=== PATIENT | male | born 1950 | race Caucasian/White ===

== ENCOUNTER 2021-06-24 13:45 | Observation (INO) | payer OTHER ==
--- NOTE | 2021-06-24 14:45 | ED ---
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 Patient went to a follow-up today with Dr. Whittaker after having a thoracentesis done about 2 weeks ago and this was found on examination. I did discuss the case with Dr. Whittaker who did send the patient over here for evaluation and inpatient treatment. The initial evaluation of the fluid from 2 weeks ago did not show evidence of neoplasm to one is suspected. MD Complaint: shortness of breath - Related Data Previous Rx's Medication Instructions Recorded Acetaminophen Tab [Tylenol] 650 mg PO Q6HR PRN tab 06/10/21 Cefuroxime Axetil [Ceftin] 500 mg PO BID 5 Days #10 tab 06/10/21 Famotidine [Pepcid] 20 mg PO BID 30 Days #60 tab 06/10/21 lisinopriL [Zestril] 10 mg PO DAILY #30 tab 06/10/21 Allergies Allergy/AdvReac Type Severity Reaction Status Date / Time No Known Allergies Allergy Verified 06/24/21 14:01 Review of Systems ROS Statement: Those systems with pertinent positive or pertinent negative responses have been documented in the HPI. ROS Other: All systems not noted in ROS Statement are negative. 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 Father Family Medical History: No Reported History Additional Family Medical History / Comment(s): Father is 89yrs old. General Exam - General Exam Comments Initial Comments: This is a well-developed well-nourished awake alert oriented times 3 male Limitations: no limitations General appearance: alert, in no apparent distress Head exam: Present: atraumatic, normocephalic, normal inspection Eye exam: Present: normal appearance, PERRL, EOMI. Absent: scleral icterus, conjunctival injection, periorbital swelling ENT exam: Present: normal exam, mucous membranes moist Neck exam: Present: normal inspection, full ROM, other. Absent: tenderness, meningismus, lymphadenopathy Respiratory exam: Present: decreased breath sounds, other (No surgery or bruits dullness to percussion over left lung field decreased evidence of aeration.). Absent: respiratory distress, wheezes, rales, rhonchi, stridor Cardiovascular Exam: Present: normal rhythm, tachycardia, normal heart sounds. Absent: systolic murmur, diastolic murmur, rubs, gallop, clicks GI/Abdominal exam: Present: soft, normal bowel sounds. Absent: distended, tenderness, guarding, rebound, rigid Extremities exam: Present: normal inspection, full ROM, normal capillary refill. Absent: tenderness, pedal edema, joint swelling, calf tenderness Back exam: Present: normal inspection Neurological exam: Present: alert, oriented X3, CN II-XII intact Psychiatric exam: Present: normal affect, normal mood Skin exam: Present: warm, dry, intact, normal color. Absent: rash Course Vital Signs 06/24/21 13:58 Temperature 98.2 F Pulse Rate 120 H Respiratory 20 Rate Blood Pressure 133/77 O2 Sat by Pulse 96 Oximetry Medical Decision Making - Medical Decision Making I did review the imaging the patient does have evidence of a large left pleural effusion with some evidence of shift to the right I did discuss the case with Dr. Lawrence patient will be admitted to due to the call schedule today. Dr. Avila will be consulted as well is thoracic surgery. - EKG Data -: EKG Interpreted by Me EKG shows normal: sinus rhythm EKG Comments: Sinus tachycardia rate 125. Interval 120 QRS duration 8070 QT since QTC 290/[address]-T wave configuration Disposition Clinical Impression: Recurrent left pleural effusion, Dyspnea, Tachycardia Disposition: ADMITTED IP TO THIS [facility] Condition: Fair Referrals: None,Stated [Primary Care Provider] - 1-2 days
[2021-06-24 14:54] LABS: Basophils % (A) 0 %; Eosinophils # (A) 0.1 k/uL (0-0.7); Eosinophils % (A) 1 %; HCT 40.1 % (39.0-53.0); HGB 12.7 gm/dL (13.0-17.5); Hypochromasia Slight; Lymphocytes % (A) 6 %; MCH 27.6 pg (25.0-35.0); MCHC 31.6 g/dL (31.0-37.0); MCV 87.2 fL (80.0-100.0); Mean Platelet Volume 6.6; Monocytes # (A) 0.9 k/uL (0-1.0); Monocytes % (A) 6 %; Neutrophils # (A) 13.3 k/uL (1.3-7.7); Neutrophils % (A) 86 %; Platelet Count 522 k/uL (150-450); RDW 13.7 % (11.5-15.5); WBC 15.5 k/uL (3.8-10.6)
[2021-06-24] MEDS ORDERED: ACETAMINOPHEN TAB 325 MG TAB PO PRN (14:55)
[2021-06-24] MEDS ORDERED: NALOXONE 0.4 MG/ML 1 ML VIAL IV PRN (14:55)
[2021-06-24] MEDS ORDERED: SODIUM CHLORIDE 0.9% 1,000 ML IV SCH (15:00)
[2021-06-24 15:02] LABS: INR 1.1 (<1.2); Partial Thromboplastin Time 23.4 sec (22.0-30.0); Prothrombin Time 11.7 sec (9.0-12.0)
[2021-06-24 15:10] LABS: Albumin 3.4 g/dL (3.5-5.0); Calcium 8.7 mg/dL (8.4-10.2); Potassium 4.6 mmol/L (3.5-5.1); Total Bilirubin 0.9 mg/dL (0.2-1.3); Total Protein 7.3 g/dL (6.3-8.2)
--- NOTE | 2021-06-24 15:49 | US ---
EXAMINATION TYPE: US chest DATE OF EXAM: 06/24/2021 COMPARISON: Outside chest x-ray earlier today CLINICAL HISTORY: Marking for thoracentesis, left side. TECHNIQUE: Targeted ultrasound of the posterior lower EXAM MEASUREMENTS: Left Pleural Effusion pocket size: 13.3 cm Left skin surface to fluid distance: 5.4 cm Lung sitting at 9.2cm. Left side marked for possible thoracentesis outside the dept. Pulmonologists are able to review the images in the patient?s EMR. At least moderate size left pleural fluid collection noted on 2 images saved correlating with x-ray e janice today. IMPRESSIONS: As above.
--- NOTE | 2021-06-24 17:27 | P.CNPUL ---
History of Present Illness Consult date: 06/24/21 Reason for consult: pleural effusion History of present illness: 70-year-old male patient who was seen in the office and the patient has comple mirela widening out of the left lung and the left lung was completely opacified highly suspicious for pleural effusion with a shift of the mediastinum to the right. Noted the patient was in the hospital on 06/10/2021 for the same. At that time, the patient a moderate-sized left-sided pleural effusion and the patient had also some partial atelectatic changes in the left lower lobe. Based on that, the patient underwent a thoracentesis, total of 1.2 L of fluid was removed and the fluid machine turner to be an exudate based on elevated protein level. LDH was 278, protein was 4.8 and the fluids. The cytology was negative, the cultures were negative, the patient was discharged home after being treated with antibiotics and he was given IV Rocephin. He came back with the above-mentioned complaint. At this point he is short of breath, tachycardic, he is afebrile, he is in sinus tachycardia with heart rate ranging between 114 and 120 with a pulse ox of 90% 4 L O2 nasal cannula. Pulmonary consultation was requested accordingly. The patient's white cell count of 15.5 with a hemoglobin of 12.2, electrolytes are normal, renal function is normal, his previous cultures 19 testing was negative on 06/08/2021, the CAT scan of the chest that was done on 06/08/2021 showed no evidence of any pulmonary embolism, large left-sided pleural effusion as mentioned, multiple areas of abnormal lobulated pleural- based thickening involving the left lung was in addition to scattered nodularity measuring up to 1.4 cm in size within the lingula which obviously raises concern for malignancy. Not a 5 mm right middle lobe pulmonary nodule was also seen. Review of Systems Constitutional: Reports fatigue Eyes: denies as per HPI, denies blurred vision, denies bulging eye, denies decreased vision, denies diplopia, denies discharge, denies dry eye, denies irritation, denies itching, denies pain, denies photophobia, denies loss of peripheral vision, denies loss of vision, denies tunnel vision/blind spots Ears: deny: decreased hearing, ear discharge, earache, tinnitus Ears, nose, mouth and throat: Reports as per HPI Breasts: absent: as per HPI, gynecomastia Cardiovascular: Reports decreased exercise tolerance, Reports dyspnea on exertio n Respiratory: Reports dyspnea Gastrointestinal: Reports as per HPI Genitourinary: Reports as per HPI Musculoskeletal: Reports as per HPI Musculoskeletal: absent: ankle pain, ankle stiffness, ankle swelling, as per HPI, elbow pain, elbow stiffness, elbow swelling, foot pain, foot stiffness, foot swelling, hand pain, hand stiffness, hand swelling, hip pain, hip stiffness, hip swelling, knee pain, knee stiffness, knee swelling, shoulder pain, shoulder stiffness, shoulder swelling, wrist pain, wrist stiffness, wrist swelling Integumentary: Reports as per HPI Neurological: Reports as per HPI Psychiatric: Reports as per HPI Endocrine: Reports as per HPI Hematologic/Lymphatic: Reports as per HPI Allergic/Immunologic: Reports as per HPI Past Medical History Past Medical History: No Reported History, COPD 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 Father Family Medical History: No Reported History Additional Family Medical History / Comment(s): Father is 89yrs old. Brother(s) Family Medical History: Hypertension Additional Family Medical History / Comment(s): epilepsy Medications and Allergies Home Medications Medication Instructions Recorded Confirmed Type lisinopriL [Zestril] 10 mg PO DAILY #30 tab 06/10/21 06/24/21 Rx Allergies Allergy/AdvReac Type Severity Reaction Status Date / Time No Known Allergies Allergy Verified 06/24/21 14:01 Physical Exam Vitals: Vital Signs Temp Pulse Resp BP Pulse Ox 06/24/21 16:10 114 H 22 128/90 98 06/24/21 13:58 98.2 F 120 H 20 133/77 96 Intake and Output 06/24/21 06/24/21 06/24/21 06:59 14:59 22:59 Other: Weight 108.862 kg GENERAL EXAM: Alert, pleasant 70-year-old male patient, on room air, comfortable in no apparent distress. The patient is still on oxygen at 4 L nasal cannula, breathing is labored HEAD: Normocephalic. EYES: Normal reaction of pupils, equal size. NOSE: Clear with pink turbinates. THROAT: No erythema or exudates. NECK: No masses, no JVD. CHEST: No chest wall deformity. LUNGS: absent breath sounds on left CVS: S1 and S2 normal with no audible murmur, regular rhythm. ABDOMEN: No hepatosplenomegaly, normal bowel sounds, no guarding or rigidity. SPINE: No scoliosis or deformity SKIN: No rashes CENTRAL NERVOUS SYSTEM: No focal deficits, tone is normal in all 4 extremities. EXTREMITIES: There is no peripheral edema. No clubbing, no cyanosis. Peripheral pulses are intact. Results - Laboratory Findings CBC and BMP: 06/24/21 14:39 06/24/21 14:39 ABG WBC 15.5 k/uL (3.8-10.6) H 06/24/21 14:39 RBC 4.60 m/uL (4.30-5.90) 06/24/21 14:39 Hgb 12.7 gm/dL (13.0-17.5) L 06/24/21 14:39 Hct 40.1 % (39.0-53.0) 06/24/21 14:39 MCV 87.2 fL (80.0-100.0) 06/24/21 14:39 MCH 27.6 pg (25.0-35.0) 06/24/21 14:39 MCHC 31.6 g/dL (31.0-37.0) 06/24/21 14:39 RDW 13.7 % (11.5-15.5) 06/24/21 14:39 Plt Count 522 k/uL (150-450) H 06/24/21 14:39 MPV 6.6 06/24/21 14:39 Neutrophils % 86 % 06/24/21 14:39 Lymphocytes % 6 % 06/24/21 14:39 Monocytes % 6 % 06/24/21 14:39 Eosinophils % 1 % 06/24/21 14:39 Basophils % 0 % 06/24/21 14:39 Neutrophils # 13.3 k/uL (1.3-7.7) H 06/24/21 14:39 Lymphocytes # 1.0 k/uL (1.0-4.8) 06/24/21 14:39 Monocytes # 0.9 k/uL (0-1.0) 06/24/21 14:39 Eosinophils # 0.1 k/uL (0-0.7) 06/24/21 14:39 Basophils # 0.0 k/uL (0-0.2) 06/24/21 14:39 Hypochromasia Slight 06/24/21 14:39 PT 11.7 sec (9.0-12.0) 06/24/21 14:39 INR 1.1 (<1.2) 06/24/21 14:39 APTT 23.4 sec (22.0-30.0) 06/24/21 14:39 Sodium 139 mmol/L (137-145) 06/24/21 14:39 Potassium 4.6 mmol/L (3.5-5.1) 06/24/21 14:39 Chloride 102 mmol/L (98-107) 06/24/21 14:39 Carbon Dioxide 26 mmol/L (22-30) 06/24/21 14:39 Anion Gap 11 mmol/L 06/24/21 14:39 BUN 21 mg/dL (9-20) H 06/24/21 14:39 Creatinine 1.04 mg/dL (0.66-1.25) 06/24/21 14:39 Est GFR (CKD-EPI)AfAm 85 (>60 ml/min/1.73 sqM) 06/24/21 14:39 Est GFR (CKD-EPI)NonAf 74 (>60 ml/min/1.73 sqM) 06/24/21 14:39 Glucose 146 mg/dL (74-99) H 06/24/21 14:39 Calcium 8.7 mg/dL (8.4-10.2) 06/24/21 14:39 Total Bilirubin 0.9 mg/dL (0.2-1.3) 06/24/21 14:39 AST 93 U/L (17-59) H 06/24/21 14:39 ALT 149 U/L (4-49) H 06/24/21 14:39 Alkaline Phosphatase 98 U/L (38-126) 06/24/21 14:39 Creatine Kinase 183 U/L (55-170) H 06/24/21 14:39 Total Protein 7.3 g/dL (6.3-8.2) 06/24/21 14:39 Albumin 3.4 g/dL (3.5-5.0) L 06/24/21 14:39 PT/INR, D-dimer PT 11.7 sec (9.0-12.0) 06/24/21 14:39 INR 1.1 (<1.2) 06/24/21 14:39 Abnormal lab findings: Abnormal Labs 06/24/21 06/24/21 14:39 14:39 WBC 15.5 H Hgb 12.7 L Plt Count 522 H Neutrophils # 13.3 H BUN 21 H Glucose 146 H AST 93 H ALT 149 H Creatine Kinase 183 H Albumin 3.4 L - Diagnostic Findings Chest x-ray: image reviewed Assessment and Plan Plan: 1 completed widening out of the left lung most likely secondary to a large left- sided pleural effusion, recurrent. 2 previous history of left-sided pleural effusion postthoracentesis and evacuation of 1.2 L of pleural fluid, the fluids and exudate and fluid cytology has been negative for malignancy. 3 shortness of breath secondary to above 4 morbid obesity 5 acute hypoxic respiratory failure secondary to above 6 hypertension 7 nonspecific pleural based irregularities based on a previous CAT scan of the chest with another right middle lobe pulmonary nodule measuring 5 mm in size Plan We will repeat thoracentesis for diagnostic and symptomatic purposes I'm going to realize the left-sided pleural fluid We'll need a CAT scan of the chest postthoracentesis Obtain an echocardiogram We'll continue to follow
--- NOTE | 2021-06-24 17:44 | P.PCN ---
Date of Procedure: 06/24/21 Preoperative Diagnosis: Left-sided pleural effusion Postoperative Diagnosis: Left-sided pleural effusion Procedure(s) Performed: Left-sided thoracentesis Anesthesia: local Surgeon: Gena Cisse Pathology: other Condition: stable Disposition: floor Operative Findings: A time out was performed and the chest x-ray was reviewed, the appropriate side was confirmed and marked. My hands were washed immediately prior to the procedure. I wore a surgical cap, mask with protective eyewear, sterile gown and sterile gloves throughout the procedure. The patient was prepped and draped in a sterile manner using chlorhexidine scrub after the appropriate level was percussed and confirmed by ultrasound. 1% lidocaine was used to anesthesize the skin, subcutaneous tissue, superior aspect of the rib periosteum and parietal pleura. A finder needle was then introduced over the superior aspect of the rib to locate the pleural fluid; 2colored fluid was aspirated at a depth of approximately 2 cm. A 10-blade scalpel was used to brandon the skin at the insertion site. The [id number] needle was then introduced through the skin incision into the pleural space using negative aspiration pressure and the red colometric indicator to confirm appropriate positioning of the needle. The thoracentesis catheter was then threaded without difficulty. 3600 ml of turbid blood tinged colored fluid was removed without difficulty. The catheter was then removed. No immediate complications were noted during the procedure. A post- procedure chest x-ray is pending at the time of this note. The fluid will lower be sent for studies. Estimated blood loss is 0cc
--- NOTE | 2021-06-24 17:54 | P.GSCN ---
History of Present Illness Consult date: 06/24/21 Reason for Consult: Recurrent left pleural effusion Requesting physician: Joi Whittaker History of present illness: This is 70-year-old gentleman who does not follow with a primary care physician on a regular basis.the patient has a past medical history significant for a recent left pleural effusion status post thoracentesis, hypertension, obesity and is a lifetime nonsmoker.on 06/08/2021 he presented to the emergency department here at [facility] due to complaints of shortness of breath. He subsequently underwent a chest CTA on 06/08/2021. which demonstrated a moderate to large left pleural effusion with partial collapse of the left lower lobe, COPD with mild emphysema and pulmonary artery hypertension. Subsequently, due to the findings of a moderate to large left pleural effusion and underwent a successful therapeutic and diagnostic left thoracentesis with 1.2 L of straw-colored fluid drained by interventional radiology. The pleural fluid cytology was negative for any malignant cells and showed reactive mesothelial cells, macrophages and mixed inflammatory cells. He was subsequently discharged home on 06/10/2021. The patient reports that since he has been home his had continued complaints of shortness of breath although has progressively gotten worse since this past Monday. He denies any fever, chills or nausea, vomiting, hemoptysis, hematemesis or recent trauma. He was scheduled for a follow up appointment with Dr. Whittaker today and underwent a chest x-ray in the office. The chest x-ray demonstrated a large left pleural effusion with mediastinal shift to the right. Due to the findings on the chest x-ray in the patient's above mentioned symptoms of shortness of breath he was told to report to the emergency department here at [facility] for further asael luation and treatment recommendations. Initial laboratory results showed a WBC count of 15.5, hemoglobin 12.7, hematocrit 40.1, platelets 522, PT 11.7, INR 1.1, PTT 23.4, sodium 139, potassium 4.6, BUN 21, glucose 146, AST 93 and ALT 149. For for the evaluation and ultrasound of his chest was completed which demonstrated a left pleural effusion pocket size of 13.3 cm, at least a moderate-sized left pleural effusion collection. Due to the patient's presenting symptoms and recent history of left pleural effusion a consult was placed to Dr. Sonny Lopez for further evaluation and treatment recommendations. Review of Systems A 14 point review of systems was completed and was negative except as mentioned in HPI. Past Medical History Past Medical History: No Reported History, COPD, Hypertension Additional Past Medical History / Comment(s): Woods's palsy, left pleural effusion on s/p left thoracentesis status post History of Any Multi-Drug Resistant Organisms: None Reported Past Surgical History: No Surgical Hx Reported Past Anesthesia/Blood Transfusion Reactions: Unable to Obtain Additional Past Anesthesia/Blood Transfusion Reaction / Comm: Pt has never had surgery Past Psychological History: No Psychological Hx Reported Smoking Status: Never smoker Past Alcohol Use History: None Reported Past Drug Use History: None Reported - Past Family History Mother Family Medical History: Cancer Additional Family Medical History / Comment(s): Mother of pancreatic cancer at the age of 61 yrs. Father Family Medical History: COPD, Hypertension Additional Family Medical History / Comment(s): Father is 90 yrs old. Brother(s) Family Medical History: Hypertension Additional Family Medical History / Comment(s): epilepsy Medications and Allergies Home Medications Medication Instructions Recorded Confirmed Type lisinopriL [Zestril] 10 mg PO DAILY #30 tab 06/10/21 06/24/21 Rx Furosemide [Lasix] 40 mg PO DAILY #15 tab 06/26/21 Rx Allergies Allergy/AdvReac Type Severity Reaction Status Date / Time No Known Allergies Allergy Verified 06/24/21 14:01 Surgical - Exam Vital Signs Temp Pulse Resp BP Pulse Ox 98.2 F 120 H 20 133/77 96 06/24/21 13:58 06/24/21 13:58 06/24/21 13:58 06/24/21 13:58 06/24/21 13:58 - General mild distress with his shortness of breath well developed, well nourished, no pain, obese - Eyes PERRL, normal ocular movement, no pale, no icteric - ENT normal pinna, normal nares, normal mucosa, no hearing loss, no congestion - Neck neck is supple, no lymphadenopathy. no masses, no bruits, trachea midline, no venous distension - Respiratory lungs sounds essentially clear to his right lobes, managed to his left lobes. No wheezes, rhonchi or crackles. Respirations are symmetrical and tachypneic. 4 L nasal cannula oxygen saturations 97%. - Cardiovascular regular rhythm and tachycardic rate. S1 and S2 present, negative for S3, gallop or murmur. No edema present. Peripheral pulses palpable. - Abdomen obese Abdomen: soft, non tender, bowel sounds (present all 4 abdominal quadrants.), no organomegaly, no surgical scars, no masses, no guarding, no rigid - Genitourinary deferred - Integumentary skin is warm and dry. No clubbing or cyanosis present. no rash, no growths, no abnormal pigmentation - Neurologic normal coordination, normal sensation - Musculoskeletal equal strength bilaterally. normal gait, normal posture - Psychiatric oriented to time, oriented to person, oriented to place, speech is normal, memory intact Results - Labs 06/26/21 05:54 06/26/21 05:54 Abnormal Lab Results - Last 24 Hours (Table) 06/24/21 06/24/21 Range/Units 14:39 14:39 WBC 15.5 H (3.8-10.6) k/uL Hgb 12.7 L (13.0-17.5) gm/dL Plt Count 522 H (150-450) k/uL Neutrophils # 13.3 H (1.3-7.7) k/uL BUN 21 H (9-20) mg/dL Glucose 146 H (74-99) mg/dL AST 93 H (17-59) U/L ALT 149 H (4-49) U/L Creatine Kinase 183 H (55-170) U/L Albumin 3.4 L (3.5-5.0) g/dL Diabetes panel 06/24/21 Range/Units 14:39 Sodium 139 (137-145) mmol/L Potassium 4.6 (3.5-5.1) mmol/L Chloride 102 (98-107) mmol/L Carbon Dioxide 26 (22-30) mmol/L BUN 21 H (9-20) mg/dL Creatinine 1.04 (0.66-1.25) mg/dL Glucose 146 H (74-99) mg/dL Calcium 8.7 (8.4-10.2) mg/dL AST 93 H (17-59) U/L ALT 149 H (4-49) U/L Alkaline Phosphatase 98 (38-126) U/L Total Protein 7.3 (6.3-8.2) g/dL Albumin 3.4 L (3.5-5.0) g/dL Calcium panel 06/24/21 Range/Units 14:39 Calcium 8.7 (8.4-10.2) mg/dL Albumin 3.4 L (3.5-5.0) g/dL Pituitary panel 06/24/21 Range/Units 14:39 Sodium 139 (137-145) mmol/L Potassium 4.6 (3.5-5.1) mmol/L Chloride 102 (98-107) mmol/L Carbon Dioxide 26 (22-30) mmol/L BUN 21 H (9-20) mg/dL Creatinine 1.04 (0.66-1.25) mg/dL Glucose 146 H (74-99) mg/dL Calcium 8.7 (8.4-10.2) mg/dL Adrenal panel 06/24/21 Range/Units 14:39 Sodium 139 (137-145) mmol/L Potassium 4.6 (3.5-5.1) mmol/L Chloride 102 (98-107) mmol/L Carbon Dioxide 26 (22-30) mmol/L BUN 21 H (9-20) mg/dL Creatinine 1.04 (0.66-1.25) mg/dL Glucose 146 H (74-99) mg/dL Calcium 8.7 (8.4-10.2) mg/dL Total Bilirubin 0.9 (0.2-1.3) mg/dL AST 93 H (17-59) U/L ALT 149 H (4-49) U/L Alkaline Phosphatase 98 (38-126) U/L Total Protein 7.3 (6.3-8.2) g/dL Albumin 3.4 L (3.5-5.0) g/dL - Imaging Chest x-ray: image reviewed Additional studies: results of ultrasound of the chest reviewed. Assessment and Plan Assessment: 1. Recurrent left-sided pleural effusion, status post thoracentesis on 06/09/2021 with 1.2 L of straw colored fluid drained secondary to above 2. Shortness of breath, secondary to above 3. Hypertension 4. History of COPD 5. Obesity 6. Lifetime nonsmoker Plan: The patient was seen and examined at his bedside in the emergency department. His discharge diagnostics reviewed. This case was discussed in detail with Dr. Sonny Lopez from cardiothoracic surgery. The patient is to undergo a left thoracentesis performed by Dr. Cisse from pulmonary medicine today. A Computed tomography scan of the chest to follow thoracentesis has been scheduled. We will continue to follow the results of the cytology of the pleural fluid and the results of the computed tomography scan of the chest. Encourage use of incentive spirometry 10 times every hour while awake. Medical medication and other comorbidities per primary care service. More recommendations to follow based on patient's clinical course and based off the results of the cytology and CT scan of the chest.. Thank you Dr Whittaker for this consult and we look for to working with you in the care of this patient. I have personally seen and examined the patient, performed the documentation and the assessment and plan as written. Number of minutes spent on the visit 30 minutes . Yg BRISCOE I have personally seen and examined the patient, reviewed the documentation and agree with the assessment and plan as written. Number of minutes spent on the visit: 40. Sonny Lopez MD
[2021-06-24] MEDS ORDERED: VANCOMYCIN IV PER PHARMACY 1 EACH MISC MISCELLANE PRN (20:49)
[2021-06-24] MEDS ORDERED: MORPHINE SULFATE 4 MG/ML SYRINGE IVP PRN (20:49)
[2021-06-24] MEDS ORDERED: ONDANSETRON 4 MG/2 ML VIAL IVP PRN (20:49)
[2021-06-24] MEDS ORDERED: PNEUMONIA PROTOCOL UTILIZED 1 EACH MISC PO PRN (20:49)
[2021-06-24] MEDS ORDERED: HYDROcodone/APAP 5-325MG 1 EACH TAB PO PRN (20:49)
[2021-06-24] MEDS ORDERED: ALBUTEROL NEBULIZED 2.5 MG/3 ML INHALATION PRN (20:49)
--- NOTE | 2021-06-24 21:29 | P.HPIM ---
History of Present Illness H&P Date: 06/24/21 Chief Complaint: shortness of breath Patient is a 70 yo M with known COPD, HTN, and obesity who was sent in from Dr. Whittaker office for left pleural effusion. On arrival to the ED he was tachycardic. His WBC was 15.5, HgB 12.7, and plt 522 with mildly elevated AST and ALT. Patient was hospitalized here from 06/08 through 06/10. During his last hospital stay he has not have a left-sided pleural effusion and ultimately underwent thoracentesis with removal of 1.2 L of fluid. This came back consistent with exudative. Cytology was negative for signs of malignancy, and cultures were negative. Patient was discharged home. He completed his oral antibiotics. Today he went to follow-up with Dr. Rankin and was found have a complete opacification of left hemithorax and therefore was sent to the ER for admission and possible drainage. He was seen by Dr. Cisse and had 3L removed via thoracentesis. Patient seen and examined at bedside. He complains of cough as well as retrosternal pain after his thoracentesis. He reports that he has been feeling progressively short of breath. It is worse with exertion or trying to lay flat. He denies any significant cough. No fevers or chills. No nausea or vomiting. Appetite has been intact. He has otherwise felt at his baseline. Pertinent positives and negatives as discussed in HPI, a complete review of systems was performed and all other systems are negative. General: Ill-appearing, no distress, appears at stated age Derm: warm, dry Head: atraumatic, normocephalic, symmetric Eyes: EOMI, no lid lag, anicteric sclera, pupils equal round reactive to light ENT: Nose and ears atraumatic, no thrush, no pharyngeal erythema Neck: No thyromegaly, no cervical lymphadenopathy, trachea midline, supple Mouth: no lip lesion, mucus membranes moist Cardiovascular: S1S2 reg, no murmur, positive posterior tibial pulse bilateral, no edema, capillary refill less than 2 seconds Lungs: clear to ascultation bilateral, no ronchi, no rales, no wheeze, no accessory muscle use Abdominal: soft, nontender to palpation, no guarding, no appreciable organomegaly, normal bowel sounds Ext: no gross muscle atrophy, muscle strength muscle strength 5 out of 5 in all 4 extremities, no contractures Neuro: CN II-XI grossly intact, light touch intact all 4 extremities, finger to nose within normal limits, Psych: Alert, oriented, appropriate affect Assessment/plan: Recurrent left-sided pleural effusion Pneumonia with sepsis, failed outpatient treatment. Acute hypoxic respiratory failure -Status post thoracentesis was removal of 3 L of fluid -Pulmonary recommendations -Await CT chest -Await repeat fluid analysis -Repeat chest x-ray in a.m. Leukocytosis -Unchanged from discharge -Follow CBC -Await pleural fluid culture Hypertension -Follow blood pressures -Resume lisinopril Transaminitis-increasing from discharge - repeat in AM Morbid obesity BMI 38.7 -Outpatient structured weight loss The patient is admitted with an anticipated greater than 2 midnight stay for evaluation of Pneumonia failed outpatient treatment with sepsis. CODE STATUS:full DVT prophylaxis: Lovenox Discussed with: patient, nursing, Dr. Cisse Anticipated discharge date: in 3-[address]: home A total of 65 minutes was spent on the care of this complex patient more than 50% of the time was spent in counseling and care coordination. Past Medical History Past Medical History: No Reported History, COPD, Hypertension Additional Past Medical History / Comment(s): Woods's palsy, left pleural effusi on on s/p left thoracentesis status post History of Any Multi-Drug Resistant Organisms: None Reported Past Surgical History: No Surgical Hx Reported Past Anesthesia/Blood Transfusion Reactions: Unable to Obtain Additional Past Anesthesia/Blood Transfusion Reaction / Comment(s): Pt has never had surgery Past Psychological History: No Psychological Hx Reported Smoking Status: Never smoker Past Alcohol Use History: None Reported Past Drug Use History: None Reported - Past Family History Mother Family Medical History: Cancer Additional Family Medical History / Comment(s): Mother of pancreatic cancer at the age of 61 yrs. Father Family Medical History: COPD, Hypertension Additional Family Medical History / Comment(s): Father is 90 yrs old. Brother(s) Family Medical History: Hypertension Additional Family Medical History / Comment(s): epilepsy Medications and Allergies Home Medications Medication Instructions Recorded Confirmed Type lisinopriL [Zestril] 10 mg PO DAILY #30 tab 06/10/21 06/24/21 Rx Allergies Allergy/AdvReac Type Severity Reaction Status Date / Time No Known Allergies Allergy Verified 06/24/21 14:01 Physical Exam Osteopathic Statement: *. No significant issues noted on an osteopathic structural exam other than those noted in the History and Physical/Consult. Vitals: Vital Signs Temp Pulse Pulse Resp BP BP Pulse Ox 06/24/21 16:25 97.9 F 113 H 18 174/99 99 06/24/21 16:10 114 H 22 128/90 98 06/24/21 13:58 98.2 F 120 H 20 133/77 96 Intake and Output 06/24/21 06/24/21 06/24/21 06:59 14:59 22:59 Other: Weight 108.862 kg 108.862 kg Results CBC & Chem 7: 06/24/21 14:39 06/24/21 14:39 Labs: Abnormal Lab Results - Last 24 Hours (Table) 06/24/21 06/24/21 Range/Units 14:39 14:39 WBC 15.5 H (3.8-10.6) k/uL Hgb 12.7 L (13.0-17.5) gm/dL Plt Count 522 H (150-450) k/uL Neutrophils # 13.3 H (1.3-7.7) k/uL BUN 21 H (9-20) mg/dL Glucose 146 H (74-99) mg/dL AST 93 H (17-59) U/L ALT 149 H (4-49) U/L Creatine Kinase 183 H (55-170) U/L Albumin 3.4 L (3.5-5.0) g/dL Thrombosis Risk Factor Assmnt - Choose All That Apply Any of the Below Risk Factors Present?: Yes Each Factor Represents 1 point: Obesity (BMI >25) Other Risk Factors: Yes Each Risk Factor Represents 2 Points: Age 61-74 years Thrombosis Risk Factor Assessment Total Risk Factor Score: 3 Thrombosis Risk Factor Assessment Level: Moderate Risk
[2021-06-24] MEDS ORDERED: MELATONIN 3 MG TABLET PO PRN (21:30)
[2021-06-24] MEDS ORDERED: VANCOMYCIN 2,000 MG in SODIUM CHLORIDE 0.9% 500 ML 500 ML IVPB ONE (22:00)
--- NOTE | 2021-06-24 22:11 | CT ---
EXAMINATION TYPE: CT chest wo con DATE OF EXAM: 06/24/2021 COMPARISON: 06/08/2021 HISTORY: post left side thoracentesis CT DLP: 841 mGycm. Automated Exposure Control for Dose Reduction was Utilized. TECHNIQUE: CT scan of the thorax is performed without IV contrast. FINDINGS: LUNGS: The airways are unremarkable. On the left, there is a diffuse groundglass opacity pattern thro ughout the inflated left lung involving the upper, mid, and lower left lung. On the right, the lung is well-expanded and clear. PLEURAL SPACES: The left pleural space shows a small volume of dependent free fluid density, but also shows prominent thickening at the medial left base and elsewhere. To delineate fluid from soft tissu e thickening, MRI can be utilized if necessary. The right pleural space is negative. MEDIASTINUM: No cardiomegaly or pericardial effusion, but left anterior descending coronary calcifica tions are noted. No adenopathy. OTHER: No additional significant abnormality is seen. IMPRESSION: 1. Post left thoracentesis, with diffuse groundglass opacity throughout the inflated left lung parenc hyma and with complex left pleural space findings as above. 2. LAD coronary calcifications noted.
[2021-06-24] MEDS: PIPERACILLIN-TAZOBACTAM 3.375 GM in SODIUM CHLORIDE 0.9% 100 ML IVPB SCH (23:55)
[2021-06-25 00:56] LABS: Glucose, BF Source Pleural Fluid; Glucose, Body Fluid 101 mg/dL; LDH, Body Fluid Source Pleural Fluid; T. Protein, Body Fluid Source Pleural Fluid; Total Protein, Body Fluid 4540 mg/dL
[2021-06-25 01:36] LABS: Appearance,BF Cloudy
[2021-06-25 05:40] LABS: HCT 36.2 % (39.0-53.0); HGB 11.1 gm/dL (13.0-17.5); Hypochromasia Slight; MCH 27.3 pg (25.0-35.0); MCHC 30.6 g/dL (31.0-37.0); MCV 89.2 fL (80.0-100.0); Mean Platelet Volume 6.7; Platelet Count 338 k/uL (150-450); RBC 4.06 m/uL (4.30-5.90); RDW 13.3 % (11.5-15.5); WBC 14.3 k/uL (3.8-10.6)
[2021-06-25 05:50] LABS: ALT 108 U/L (4-49); AST 73 U/L (17-59); African American GFR (CKD) 76 (>60 ml/min/1.73 sqM); Albumin 2.5 g/dL (3.5-5.0); Albumin/Globulin Ratio 0.8; Alkaline Phosphatase 68 U/L (38-126); Anion Gap 3 mmol/L; Blood Urea Nitrogen 25 mg/dL (9-20); Calcium 7.9 mg/dL (8.4-10.2); Carbon Dioxide 28 mmol/L (22-30); Chloride 106 mmol/L (98-107); Globulin 3.1 g/dL; Glucose 119 mg/dL (74-99); Non-African American GFR(CKD) 66 (>60 ml/min/1.73 sqM); Potassium 4.2 mmol/L (3.5-5.1); Sodium 137 mmol/L (137-145); Total Bilirubin 0.7 mg/dL (0.2-1.3); Total Protein 5.6 g/dL (6.3-8.2)
--- NOTE | 2021-06-25 06:46 | XR ---
EXAMINATION TYPE: XR chest 1V portable DATE OF EXAM: 06/25/2021 CLINICAL HISTORY: Difficulty breathing progress study. TECHNIQUE: Single AP portable upright view of the chest is obtained. COMPARISON: CT chest and outside x-ray from one day earlier and older studies FINDINGS: Near completely opacified left hemithorax is redemonstrated. There is improvement in media stinal shift to the right from x-ray one day earlier. There is now some visualization of portion of t he left heart border. Right lung shows diminished volume without focal airspace opacity or pleural ef fusion. Cardiac silhouette size upper limits of normal.. Multilevel spurring in thoracic spine is pre sent. IMPRESSION: Worsening diffuse left lung pneumonic consolidation and/or edema from most recent study b eing CT exam one day earlier. Right lung remains clear.
[2021-06-25] MEDS: lisinopriL 10 MG TAB PO SCH (08:23)
[2021-06-25] MEDS: PIPERACILLIN-TAZOBACTAM 3.375 GM in SODIUM CHLORIDE 0.9% 100 ML IVPB SCH ×3 (08:23→23:48)
[2021-06-25] MEDS ORDERED: ENOXAPARIN 40 MG/0.4 ML SYRINGE SQ SCH (09:00)
--- NOTE | 2021-06-25 10:39 | P.PN ---
Subjective Progress Note Date: 06/25/21 Principal diagnosis: Recurrent left-sided pleural effusion, shortness of breath. History of recent left sided pleural effusion post thoracentesis on 06/09/2021 with 1.2 L of straw colored fluid drained, hypertension, COPD, obesity, lifetime nonsmoker The patient was seen and examined smoking sitting up in bed in no acute distress about to eat breakfast. States his shortness of breath has improved since thoracentesis yesterday. Remains on [address] scan of chest from yesterday and chest x-ray from this morning reviewed with Dr. Cisse. Awaiting pathology results from pleural fluid sent yesterday. Objective - Vital Signs Vital signs: Vital Signs Temp 98.8 F 06/25/21 02:50 Pulse 76 06/25/21 02:50 Resp 17 06/25/21 02:50 BP 120/54 06/25/21 02:50 Pulse Ox 92 L 06/25/21 07:34 Intake & Output 06/24/21 06/25/21 06/25/21 18:59 06:59 18:59 Intake Total 118 Output Total 300 Balance 118 -300 Weight 108.862 kg Intake: Oral 118 Output: Urine 300 Other: # Voids 3 - Exam CONSTITUTIONAL: Appears comfortable, cooperative, no acute distress RESPIRATORY: Lungs sounds diminished bilaterally, left greater than right. Respirations even, nonlabored. Currently on 2 L nasal cannula with oxygen saturation 92%. Strong cough. CARDIOVASCULAR: S1, S2 present. Regular rate and rhythm, sinus rhythm on telemetry. Palpable peripheral pulses bilaterally. No edema present. No calf pain or tenderness noted. SCDs present. GASTROINTESTINAL: Abdomen soft, nontender, nondistended, round. Active bowel sounds present 4 quadrants. Tolerating diet. GENITOURINARY: Continues to void INTEGUMENTARY: Skin is warm and dry with evidence of good perfusion NEUROLOGIC: Cranial nerves II through XII intact MUSKULOSKELETAL: Able to move all extremities, strength equal bilaterally PSYCHIATRIC: Alert and oriented to person place and time, appropriate affect, intact judgment and insight - Labs CBC & Chem 7: 06/25/21 05:19 06/25/21 05:19 Labs: Abnormal Lab Results - Last 24 Hours (Table) 06/24/21 06/24/21 06/25/21 Range/Units 14:39 14:39 05:19 WBC 15.5 H 14.3 H (3.8-10.6) k/uL RBC 4.06 L (4.30-5.90) m/uL Hgb 12.7 L 11.1 L (13.0-17.5) gm/dL Hct 36.2 L (39.0-53.0) % MCHC 30.6 L (31.0-37.0) g/dL Plt Count 522 H (150-450) k/uL Neutrophils # 13.3 H (1.3-7.7) k/uL BUN 21 H (9-20) mg/dL Glucose 146 H (74-99) mg/dL Calcium (8.4-10.2) mg/dL AST 93 H (17-59) U/L ALT 149 H (4-49) U/L Creatine Kinase 183 H (55-170) U/L Total Protein (6.3-8.2) g/dL Albumin 3.4 L (3.5-5.0) g/dL 06/25/21 Range/Units 05:19 WBC (3.8-10.6) k/uL RBC (4.30-5.90) m/uL Hgb (13.0-17.5) gm/dL Hct (39.0-53.0) % MCHC (31.0-37.0) g/dL Plt Count (150-450) k/uL Neutrophils # (1.3-7.7) k/uL BUN 25 H (9-20) mg/dL Glucose 119 H (74-99) mg/dL Calcium 7.9 L (8.4-10.2) mg/dL AST 73 H (17-59) U/L ALT 108 H (4-49) U/L Creatine Kinase (55-170) U/L Total Protein 5.6 L (6.3-8.2) g/dL Albumin 2.5 L (3.5-5.0) g/dL Microbiology - Last 24 Hours (Table) 06/24/21 17:30 Gram Stain - Preliminary Pleural Fluid Body Fluid Culture - Preliminary - Imaging and Cardiology Chest x-ray: report reviewed, image reviewed CT scan - chest: report reviewed, image reviewed Assessment and Plan Assessment: 1. Recurrent left-sided pleural effusion, history of recent left sided pleural effusion post thoracentesis on 06/09/2021 with 1.2 L of straw colored fluid drained 2. Shortness of breath secondary to above 3. History of hypertension 4. COPD 5. Obesity 6. Lifetime nonsmoker Plan: 1. Await results of pleural fluid cytology. Dependent on results patient may need surgical lung biopsy and/or Pleurx catheter placement 2. Wean O2 as tolerated. Incentive spirometry ordered and should be encouraged 3. Increase activity as tolerated 4. Will monitor daily x-rays 5. Medical management of other comorbidities per primary care service 6. More recommendations to follow
--- NOTE | 2021-06-25 14:02 | P.PN ---
Subjective Progress Note Date: 06/25/21 On 06/25/2021, the patient is being seen for a follow-up. The patient underwent a thoracentesis yesterday more than 3.5 L of pleural fluid was aspirated. The fluid is an exudative based on protein criteria. The fluid cytology still pending for now. The patient had no immediate complications. A CAT scan of the chest was done following the thoracentesis showed diffuse groundglass opacities throughout the inflated left lung parenchyma, and the patient has a complex left pleural space findings with small volume of the dependent left lung base and some prominent thickening along the pleural surface along the left lateral and posterior wall. The right pleural space was essentially negative. There was some coronary calcifications. The chest x-ray from today shows further opacities in the left lung without any significant volume loss and I suspect that the patient had some exposure or edema. Otherwise, the patient remains on 2 L of O2 nasal cannula. He is having some chest discomfort mainly with deep breathing and this occurred following the thoracentesis. Electrolytes are all within normal limits. The white cell count of 14.3. Patient was started on empiric antibiotics. Objective - Vital Signs Vital signs: Vital Signs Temp 98.9 F 06/25/21 07:00 Pulse 61 06/25/21 07:00 Resp 18 06/25/21 07:00 BP 109/58 06/25/21 07:00 Pulse Ox 92 L 06/25/21 07:34 Intake & Output 06/24/21 06/25/21 06/25/21 18:59 06:59 18:59 Intake Total 118 Output Total 300 Balance 118 -300 Weight 108.862 kg Intake: Oral 118 Output: Urine 300 Other: # Voids 3 - Exam GENERAL EXAM: Alert, pleasant 70-year-old male patient, on room air, comfortable in no apparent distress. The patient is still on oxygen at 2 L nasal cannula, breathing is labored HEAD: Normocephalic. EYES: Normal reaction of pupils, equal size. NOSE: Clear with pink turbinates. THROAT: No erythema or exudates. NECK: No masses, no JVD. CHEST: No chest wall deformity. LUNGS: Diminished breath on the left compared to the right CVS: S1 and S2 normal with no audible murmur, regular rhythm. ABDOMEN: No hepatosplenomegaly, normal bowel sounds, no guarding or rigidity. SPINE: No scoliosis or deformity SKIN: No rashes CENTRAL NERVOUS SYSTEM: No focal deficits, tone is normal in all 4 extremities. EXTREMITIES: There is no peripheral edema. No clubbing, no cyanosis. Peripheral pulses are intact. - Labs CBC & Chem 7: 06/25/21 05:19 06/25/21 05:19 Labs: Abnormal Lab Results - Last 24 Hours (Table) 06/24/21 06/24/21 06/25/21 Range/Units 14:39 14:39 05:19 WBC 15.5 H 14.3 H (3.8-10.6) k/uL RBC 4.06 L (4.30-5.90) m/uL Hgb 12.7 L 11.1 L (13.0-17.5) gm/dL Hct 36.2 L (39.0-53.0) % MCHC 30.6 L (31.0-37.0) g/dL Plt Count 522 H (150-450) k/uL Neutrophils # 13.3 H (1.3-7.7) k/uL BUN 21 H (9-20) mg/dL Glucose 146 H (74-99) mg/dL Calcium (8.4-10.2) mg/dL AST 93 H (17-59) U/L ALT 149 H (4-49) U/L Creatine Kinase 183 H (55-170) U/L Total Protein (6.3-8.2) g/dL Albumin 3.4 L (3.5-5.0) g/dL 06/25/21 Range/Units 05:19 WBC (3.8-10.6) k/uL RBC (4.30-5.90) m/uL Hgb (13.0-17.5) gm/dL Hct (39.0-53.0) % MCHC (31.0-37.0) g/dL Plt Count (150-450) k/uL Neutrophils # (1.3-7.7) k/uL BUN 25 H (9-20) mg/dL Glucose 119 H (74-99) mg/dL Calcium 7.9 L (8.4-10.2) mg/dL AST 73 H (17-59) U/L ALT 108 H (4-49) U/L Creatine Kinase (55-170) U/L Total Protein 5.6 L (6.3-8.2) g/dL Albumin 2.5 L (3.5-5.0) g/dL Microbiology - Last 24 Hours (Table) 06/25/21 04:40 Nasal Screen MRSA/MSSA - Preliminary Nasal Swab 06/24/21 17:30 Gram Stain - Preliminary Pleural Fluid Body Fluid Culture - Preliminary Assessment and Plan Plan: 1 completed widening out of the left lung most likely secondary to a large left- sided pleural effusion, recurrent.. The patient underwent thoracentesis with evacuation of 3.5 L of pleural fluid from the left, exudate. Noted the patient also had a previous history of left-sided pleural effusion postthoracentesis and evacuation of 1.2 L of pleural fluid, the fluids and exudate and fluid cytology has been negative for malignancy. 2 re- expansion pulmonary edema as the patient had some bronchus pulmonary infiltrates on the left with subsequent interval worsening of the opacification of the left lung, infection is doubtful 3 shortness of breath secondary to above 4 morbid obesity 5 acute hypoxic respiratory failure secondary to above 6 hypertension 7 nonspecific pleural based irregularities based on a previous CAT scan of the chest with another right middle lobe pulmonary nodule measuring 5 mm in size Plan Awaiting pleural fluid cytology We'll likely need a thoracoscopy, pleural biopsy and subsequent Pleurx catheter insertion Will be discussed with cardiothoracic team Keep the patient O2 at 2 L Agree on antibiotics We'll follow
[2021-06-25] MEDS: VANCOMYCIN 2,000 MG in SODIUM CHLORIDE 0.9% 500 ML 500 ML IVPB SCH (16:19)
--- NOTE | 2021-06-25 17:10 | P.PN ---
Subjective Progress Note Date: 06/25/21 (delayed charting seen at 1430) Principal diagnosis: shortness of breath Patient is a 70 yo M with known COPD, HTN, and obesity who was sent in from Dr. Whittaker office for left pleural effusion. On arrival to the ED he was tachycardic. His WBC was 15.5, HgB 12.7, and plt 522 with mildly elevated AST and ALT. Patient was hospitalized here from 06/08 through 06/10. During his last hospital stay he has not have a left-sided pleural effusion and ultimately underwent thoracentesis with removal of 1.2 L of fluid. This came back consistent with exudative. Cytology was negative for signs of malignancy, and cultures were negative. Patient was discharged home. He completed his oral antibiotics. Today he went to follow-up with Dr. Rankin and was found have a complete opacification of left hemithorax and therefore was sent to the ER for admission and possible drainage. He was seen by Dr. Cisse and had 3L removed via thoracentesis. He underwent CT chest that showed pleural thickening on the left as well as infiltrates. He was started on IV antibiotics due to possible infiltrate and elevated white blood cell count. Repeat chest x-ray in the morning of 06/25 again showed left opacification. Patient seen and examined at bedside. He states his breathing is much better than when he came in. His retrosternal chest pain is resolved. No nausea, vomiting, diarrhea. He is anxious about next steps. General: non toxic, no distress, appears at stated age, obese Derm: warm, dry Head: atraumatic, normocephalic, symmetric Eyes: EOMI, no lid lag, anicteric sclera Mouth: no lip lesion, mucus membranes moist Cardiovascular: S1S2 reg, no murmur, positive posterior tibial pulse bilateral, Lungs: Wheezing left lung, no accessory muscle use Abdominal: soft, nontender to palpation, no guarding, no appreciable organomegaly Ext: no gross muscle atrophy, no edema, no contractures Neuro: CN II-XI grossly intact, no focal neuro deficits Psych: Alert, oriented, appropriate affect Assessment/plan: Recurrent left-sided pleural effusion Probable Pneumonia with sepsis, failed outpatient treatment. Acute hypoxic respiratory failure Re-expansion pulm edema -Status post thoracentesis was removal of 3 L of fluid -Pulmonary recommendations - CVT recs: await fluid analysis and pending that may need pleurx vs surgical lung biopsy - zosyn/ vanco - MRSA nasal swab pending - IVF - await plerual fluid culture and cytology Hypertension -Follow blood pressures -Resume lisinopril Transaminitis, stable - outpatient follow-up Morbid obesity BMI 38.7 -Outpatient structured weight loss DVT prophylaxis: Lovenox Discussed with: Patient, nursing Anticipated discharge: in 3-[address]: home A total of 35 minutes was spent on the care of this complex patient more than 50% of the time was spent in counseling and care coordination. Objective - Vital Signs Vital signs: Vital Signs Temp 98.7 F 06/25/21 15:17 Pulse 101 H 06/25/21 15:17 Resp 18 06/25/21 15:17 BP 116/68 06/25/21 15:17 Pulse Ox 94 L 06/25/21 15:17 Intake & Output 06/24/21 06/25/21 06/25/21 18:59 06:59 18:59 Intake Total 118 Output Total 300 Balance 118 -300 Weight 108.862 kg Intake: Oral 118 Output: Urine 300 Other: # Voids 3 1 - Labs CBC & Chem 7: 06/25/21 05:19 06/25/21 05:19 Labs: Abnormal Lab Results - Last 24 Hours (Table) 06/25/21 06/25/21 Range/Units 05:19 05:19 WBC 14.3 H (3.8-10.6) k/uL RBC 4.06 L (4.30-5.90) m/uL Hgb 11.1 L (13.0-17.5) gm/dL Hct 36.2 L (39.0-53.0) % MCHC 30.6 L (31.0-37.0) g/dL BUN 25 H (9-20) mg/dL Glucose 119 H (74-99) mg/dL Calcium 7.9 L (8.4-10.2) mg/dL AST 73 H (17-59) U/L ALT 108 H (4-49) U/L Total Protein 5.6 L (6.3-8.2) g/dL Albumin 2.5 L (3.5-5.0) g/dL Microbiology - Last 24 Hours (Table) 06/25/21 04:40 Nasal Screen MRSA/MSSA - Preliminary Nasal Swab 06/24/21 17:30 Gram Stain - Preliminary Pleural Fluid Body Fluid Culture - Preliminary
[2021-06-26] MEDS: VANCOMYCIN 2,000 MG in SODIUM CHLORIDE 0.9% 500 ML 500 ML IVPB SCH (05:47)
[2021-06-26 06:19] LABS: HCT 35.7 % (39.0-53.0); HGB 10.8 gm/dL (13.0-17.5); Hypochromasia Marked; MCHC 30.1 g/dL (31.0-37.0); MCV 89.7 fL (80.0-100.0); Mean Platelet Volume 6.5; Platelet Count 395 k/uL (150-450); RBC 3.98 m/uL (4.30-5.90); RDW 13.7 % (11.5-15.5); WBC 12.4 k/uL (3.8-10.6)
[2021-06-26 06:38] LABS: African American GFR (CKD) 83 (>60 ml/min/1.73 sqM); Anion Gap 5 mmol/L; Blood Urea Nitrogen 16 mg/dL (9-20); Calcium 7.6 mg/dL (8.4-10.2); Carbon Dioxide 28 mmol/L (22-30); Chloride 105 mmol/L (98-107); Glucose 128 mg/dL (74-99); Non-African American GFR(CKD) 72 (>60 ml/min/1.73 sqM); Potassium 4.2 mmol/L (3.5-5.1); Sodium 138 mmol/L (137-145)
--- NOTE | 2021-06-26 07:44 | XR ---
EXAMINATION TYPE: XR chest 2V DATE OF EXAM: 06/26/2021 COMPARISON: 06/25/2021 INDICATION: Pleural effusion TECHNIQUE: Frontal and lateral views of the chest are obtained. FINDINGS: The heart size is moderately prominent. The pulmonary vasculature is prominent. There is diffuse increased lung markings in the left lung. This is slightly improvement in comparison . IMPRESSION: 1. Slight improvement of the left lung infiltrate. Correlate for pneumonia or atypical pulmonary treasure a.
[2021-06-26] MEDS ORDERED: FUROSEMIDE 10 MG/ML 4 ML VIAL IV STA (08:31)
--- NOTE | 2021-06-26 08:43 | P.PN ---
Subjective Progress Note Date: 06/26/21 Principal diagnosis: Recurrent left-sided pleural effusion, shortness of breath. Past medical history significant for recent left sided pleural effusion status post left thoracentesis on 06/09/2021 with 1.2 L of straw colored fluid drained, with cytology showing no malignant cells, hypertension, COPD, obesity, and is a lifetime nonsmoker. The patient was seen and examined this morning 06/26/2021 at his bedside on the [address] [place] [address]. Currently he is lying in bed, is awake, alert, oriented 3 and is in no acute apparent distress. Denies any complaints of pain, reports his shortness of breath has improved since having the fluid removed from around his left lung. Oxygen saturation are 94% on 2 L nasal cannula and he is achieving 1500 mL on his incentive spirometry with encouragement. Chest x-ray was reviewed this morning which shows slight improvement of the left lung infiltrate. He remains afebrile the last 24 hours. He remains on Zosyn and vancomycin for antibiotic coverage managed by primary care service. Cytology results from the thoracentesis on 06/25/2019 to remain pending. Objective - Vital Signs Vital signs: Vital Signs Temp 98.8 F 06/26/21 07:24 Pulse 63 06/26/21 07:24 Resp 20 06/26/21 07:24 BP 95/62 06/26/21 07:24 Pulse Ox 94 L 06/26/21 07:44 Intake & Output 06/25/21 06/26/21 06/26/21 18:59 06:59 18:59 Output Total 700 Balance -700 Output: Urine 700 Other: Voiding Method Urinal # Voids 1 1 - Exam CONSTITUTIONAL: Appears comfortable, cooperative, no acute distress RESPIRATORY: Lungs sounds essentially clear to his right lobes, diminished to his left left lower lobe. No wheezes, rhonchi or crackles. Respirations are symmetrical and nonlabored. Currently on 2 L nasal cannula with oxygen saturation 94%. Strong cough. CARDIOVASCULAR: S1, S2 present. Regular rate and rhythm, sinus rhythm on telemetry. Palpable peripheral pulses bilaterally. No edema present. No calf pain or tenderness noted. SCDs present. GASTROINTESTINAL: Abdomen soft, nontender, nondistended, round. Active bowel sounds present 4 quadrants. Tolerating diet. GENITOURINARY: Continues to void INTEGUMENTARY: Skin is warm and dry, no clubbing or cyanosis. NEUROLOGIC: Cranial nerves II through XII intact. MUSKULOSKELETAL: Able to move all extremities, strength equal bilaterally. PSYCHIATRIC: Alert and oriented to person place and time, appropriate affect, i ntact judgment and insight - Allied health notes Allied health notes reviewed: nursing - Labs CBC & Chem 7: 06/26/21 05:54 06/26/21 05:54 Labs: Abnormal Lab Results - Last 24 Hours (Table) 06/26/21 06/26/21 Range/Units 05:54 05:54 WBC 12.4 H (3.8-10.6) k/uL RBC 3.98 L (4.30-5.90) m/uL Hgb 10.8 L (13.0-17.5) gm/dL Hct 35.7 L (39.0-53.0) % MCHC 30.1 L (31.0-37.0) g/dL Glucose 128 H (74-99) mg/dL Calcium 7.6 L (8.4-10.2) mg/dL Microbiology - Last 24 Hours (Table) 06/24/21 17:30 Gram Stain - Preliminary Pleural Fluid Body Fluid Culture - Preliminary 06/25/21 04:40 Nasal Screen MRSA/MSSA - Preliminary Nasal Swab - Imaging and Cardiology Chest x-ray: report reviewed, image reviewed Assessment and Plan Assessment: 1. Recurrent left-sided pleural effusion, status post thoracentesis on 06/09/2021 with 1.2 L of straw colored fluid drained secondary to above, status post left thoracentesis on 06/24/2021 with 3.6 liters of turbid blood tinged color fluid drained, cytology results pending 2. Shortness of breath, secondary to above 3. Hypertension 4. History of COPD 5. Obesity 6. Lifetime nonsmoker Plan: 1. Await results of pleural fluid cytology results. Dependent on results patient may need surgical lung biopsy and/or Pleurx catheter placement which could be done on an outpatient basis. 2. Wean O2 as tolerated. Incentive spirometry 10 times every hour while awake as ordered and should be encouraged. 3. Increase activity as tolerated. Out of bed for all meals. 4. Will monitor daily chest x-rays. 5. Medical management of other comorbidities per primary care service. 6. Lasix 40 mg IV 1 now. Start Lasix 40 mg by mouth daily per Dr. Cisse's recommendations. 7. More recommendations to follow based on patient's clinical course. Time with Patient: Greater than 30
[2021-06-26] MEDS ORDERED: ENOXAPARIN 40 MG/0.4 ML SYRINGE SQ SCH (09:00)
[2021-06-26] MEDS: PIPERACILLIN-TAZOBACTAM 3.375 GM in SODIUM CHLORIDE 0.9% 100 ML IVPB SCH (10:28)
[2021-06-26] MEDS: lisinopriL 10 MG TAB PO SCH (10:33)
--- NOTE | 2021-06-26 12:13 | P.PN ---
Subjective Progress Note Date: 06/26/21 On 06/25/2021, the patient is being seen for a follow-up. The patient underwent a thoracentesis yesterday more than 3.5 L of pleural fluid was aspirated. The fluid is an exudative based on protein criteria. The fluid cytology still pending for now. The patient had no immediate complications. A CAT scan of the chest was done following the thoracentesis showed diffuse groundglass opacities throughout the inflated left lung parenchyma, and the patient has a complex left pleural space findings with small volume of the dependent left lung base and some prominent thickening along the pleural surface along the left lateral and posterior wall. The right pleural space was essentially negative. There was some coronary calcifications. The chest x-ray from today shows further opacities in the left lung without any significant volume loss and I suspect that the patient had some exposure or edema. Otherwise, the patient remains on 2 L of O2 nasal cannula. He is having some chest discomfort mainly with deep breathing and this occurred following the thoracentesis. Electrolytes are all within normal limits. The white cell count of 14.3. Patient was started on empiric antibiotics. On 06/26/2021, the patient is resting comfortably in bed. A repeat chest x-ray was done that showed slight improvement in her left lung infiltrate and this was probably related to a postthoracentesis induced pulmonary edema occurring in the left. Urinary rate, the patient is stable on 2 L his pulse ox to 94%. The fluid is in a state from the left lung and the cytology still pending. The patient will obviously needs further intervention including a thoracoscopy possibly a Pleurx catheter insertion. This can be done on outpatient basis knowing that over the weekend the cardiothoracic team will not proceed with any intervention specially the fluid cytology still pending for now. I made arranges for this patient to have home O2. He'll be given dose of Lasix and possibly going home today. Objective - Vital Signs Vital signs: Vital Signs Temp 98.8 F 06/26/21 07:24 Pulse 102 H 06/26/21 11:44 Resp 20 06/26/21 07:24 BP 95/62 06/26/21 07:24 Pulse Ox 89 L 06/26/21 11:44 Intake & Output 06/25/21 06/26/21 06/26/21 18:59 06:59 18:59 Intake Total 180 Output Total 700 600 Balance -700 -420 Intake: Oral 180 Output: Urine 700 600 Other: Voiding Method Urinal # Voids 1 1 1 - Exam GENERAL EXAM: Alert, pleasant 70-year-old male patient, on room air, comfortable in no apparent distress. The patient is still on oxygen at 2 L nasal cannula, breathing is labored HEAD: Normocephalic. EYES: Normal reaction of pupils, equal size. NOSE: Clear with pink turbinates. THROAT: No erythema or exudates. NECK: No masses, no JVD. CHEST: No chest wall deformity. LUNGS: Diminished breath on the left compared to the right CVS: S1 and S2 normal with no audible murmur, regular rhythm. ABDOMEN: No hepatosplenomegaly, normal bowel sounds, no guarding or rigidity. SPINE: No scoliosis or deformity SKIN: No rashes CENTRAL NERVOUS SYSTEM: No focal deficits, tone is normal in all 4 extremities. EXTREMITIES: There is no peripheral edema. No clubbing, no cyanosis. Peripheral pulses are intact. - Labs CBC & Chem 7: 06/26/21 05:54 06/26/21 05:54 Labs: Abnormal Lab Results - Last 24 Hours (Table) 06/26/21 06/26/21 Range/Units 05:54 05:54 WBC 12.4 H (3.8-10.6) k/uL RBC 3.98 L (4.30-5.90) m/uL Hgb 10.8 L (13.0-17.5) gm/dL Hct 35.7 L (39.0-53.0) % MCHC 30.1 L (31.0-37.0) g/dL Glucose 128 H (74-99) mg/dL Calcium 7.6 L (8.4-10.2) mg/dL Microbiology - Last 24 Hours (Table) 06/25/21 04:40 Nasal Screen MRSA/MSSA - Final Nasal Swab 06/24/21 17:30 Gram Stain - Preliminary Pleural Fluid Body Fluid Culture - Preliminary Assessment and Plan Plan: 1 completed widening out of the left lung most likely secondary to a large left- sided pleural effusion, recurrent.. The patient underwent thoracentesis with evacuation of 3.5 L of pleural fluid from the left, exudate. Noted the patient also had a previous history of left-sided pleural effusion postthoracentesis and evacuation of 1.2 L of pleural fluid, the fluids and exudate and fluid cytology has been negative for malignancy. 2 re- expansion pulmonary edema as the patient had some bronchus pulmonary infiltrates on the left with subsequent interval worsening of the opacification of the left lung, infection is doubtful 3 shortness of breath secondary to above 4 morbid obesity 5 acute hypoxic respiratory failure secondary to above 6 hypertension 7 nonspecific pleural based irregularities based on a previous CAT scan of the chest with another right middle lobe pulmonary nodule measuring 5 mm in size Plan Repeat chest x-ray from today showing some improvement Patient may have undergone a component of postthoracentesis-induced pulmonary edema on the left/expansion pulmonary edema and the patient was given a dose of Lasix Arrange home O2 Awaiting pleural fluid cytology We'll likely need a thoracoscopy, pleural biopsy and subsequent Pleurx catheter insertion This workup and treatment can be arranged also on outpatient basis. Over the weekend, no other intervention will be done here in the hospital the patient can be discharged with a short-term follow-up in the office. He was agreeable to that.
[2021-06-26 14:38] VITALS: BP 116/67; PULSE 97; RESP 18; TEMP 99
--- NOTE | 2021-06-26 16:33 | P.DS ---
Providers Date of admission: 06/24/21 14:56 Expected date of discharge: 06/26/21 Attending physician: Екатерина Lawrence DO Consults: 06/24/21 14:56 Consult Physician Routine Consulting Provider: Gena Cisse Consult Reason/Comments: Recurrent left pleural effusion Do you want consulting provider notified?: Already Contacted Consult Physician Routine Consulting Provider: Bravo aMhmood Consult Reason/Comments: Left lung pleural biopsy Do you want consulting provider notified?: Yes Primary care physician: Stated None Hospital Course: Discharge Diagnosis: Require pleural effusion on the left status post thoracentesis Reexpansion pulmonary edema Pleural thickening COPD Hypertension Morbid obesity Development of chronic hypoxic respiratory failure Pneumonia ruled out Transaminitis Hospital Course: Patient is a 70 yo M with known COPD, HTN, and obesity who was sent in from Dr. Whittaker office for left pleural effusion. On arrival to the ED he was tachycardic. His WBC was 15.5, HgB 12.7, and plt 522 with mildly elevated AST and ALT. Patient was hospitalized here from 06/08 through 06/10. During his last hospital stay he has not have a left-sided pleural effusion and ultimately underwent thoracentesis with removal of 1.2 L of fluid. This came back consistent with exudative. Cytology was negative for signs of malignancy, and cultures were negative. Patient was discharged home. He completed his oral antibiotics. Today he went to follow-up with Dr. Rankin and was found have a complete opacification of left hemithorax and therefore was sent to the ER for admission and possible drainage. He was seen by Dr. Cisse and had 3L removed via thoracentesis. He underwent CT chest that showed pleural thickening on the left as well as infiltrates. He was started on IV antibiotics due to possible infiltrate and elevated white blood cell count. Repeat chest x-ray in the morning of 06/25 again showed left opacification. [place] to be reflective of pulm edema. Antibiotics were discontinued. Pleural fluid was not consistent with a parapneumonic effusion. Cytology was pending. Patient will likely need thoracostomy with pleural biopsy and placement of Pleurx catheter if cytology is negative. Cytology is positive he'll need a proximal catheter placed and then to proceed with treatment. Currently awaiting cytology results. Patient determined stable for discharge home. He will have close follow-up with Dr. Cisse and the cardiothoracic team. Patient discharged home in stable condi tion. He will take Lasix at home to help prevent recurrence of his pleural effusion. He was made aware to return to the hospital or to call Dr. Cisse's office should his shortness of breath worsened. Patient will require her home O2. Arrangements are made for this on discharge. Patient seen and examined at bedside. Denies any chest pain, redness of breath is better than on admission but still present, no nausea. Vital signs reviewed and stable. General: non toxic, no distress, appears at stated age, obese Derm: warm, dry Head: atraumatic, normocephalic, symmetric Eyes: EOMI, no lid lag, anicteric sclera Mouth: no lip lesion, mucus membranes moist Cardiovascular: S1S2 reg, no murmur, positive posterior tibial pulse bilateral, Lungs: Rhonchi at left , no accessory muscle use Abdominal: soft, nontender to palpation, no guarding, no appreciable organomegaly Ext: no gross muscle atrophy, no edema, no contractures Neuro: CN II-XI grossly intact, no focal neuro deficits Psych: Alert, oriented, appropriate affect A total of 45 minutes of time were spent preparing this complex discharge summary . Patient Condition at Discharge: Fair Plan - Discharge Summary Discharge Rx Participant: No New Discharge Prescriptions: New Furosemide [Lasix] 40 mg PO DAILY #15 tab Continue lisinopriL [Zestril] 10 mg PO DAILY #30 tab Discharge Medication List lisinopriL [Zestril] 10 mg PO DAILY #30 tab 06/10/21 [Rx] Furosemide [Lasix] 40 mg PO DAILY #15 tab 06/26/21 [Rx] Follow up Appointment(s)/Referral(s): [facility] [NON-STAFF] - Nella Buck MD [STAFF PHYSICIAN] - 1 Week Stuart Price MD [STAFF PHYSICIAN] - 1-2 Days (Gena Overton MD [STAFF PHYSICIAN] - 1-2 Days Activity/Diet/Wound Care/Special Instructions: Activity: as tolerated Diet: Heart Healthy Special Instructions: You will have follow-up this coming week. If breathing is getting worse call Dr. Cisse's office. Take all medications as prescribed. You will need further follow-up for testing but we need the final results of this thoracentesis to determine the next appropriate steps. Discharge Disposition: HOME SELF-CARE
[2021-06-27] MEDS ORDERED: FUROSEMIDE 40 MG TAB PO SCH (09:00)
[2021-06-27] MEDS ORDERED: VANCOMYCIN TROUGH DUE 1 EACH MISC MISCELLANE ONE (13:00)
== END 2021-06-26 16:19 | disposition home or self-care (01) ==
LOC: EC 13:45 → 6NMEDSUR 14:55 → INTOOBSV 14:56 → OBSVTOIN 14:56 → 6NMEDSUR 15:54 → UNDODISIN 06-26 16:19
PROVIDERS: ADMIT Internal Medicine; ATTEND Internal Medicine
PROC: 0W9B30Z Drainage of Left Pleural Cavity with Drainage Device, Percutaneous Approach (ICD-10-PCS; principal; 2021-06-24)
DX: A41.9 Sepsis, unspecified organism (principal); J18.9 Pneumonia, unspecified organism; J96.21 Acute and chronic respiratory failure with hypoxia; J90 Pleural effusion, not elsewhere classified; J98.19 Other pulmonary collapse; J81.1 Chronic pulmonary edema; E66.01 Morbid (severe) obesity due to excess calories; I10 Essential (primary) hypertension; G51.0 Bell's palsy; R74.01 Elevation of levels of liver transaminase levels; I25.10 Atherosclerotic heart disease of native coronary artery without angina pectoris; I27.21 Secondary pulmonary arterial hypertension; J43.9 Emphysema, unspecified; Z68.38 Body mass index [BMI] 38.0-38.9, adult; Z79.899 Other long term (current) drug therapy; Z80.0 Family history of malignant neoplasm of digestive organs; Z82.0 Family history of epilepsy and other diseases of the nervous system; Z82.49 Family history of ischemic heart disease and other diseases of the circulatory system; Z82.5 Family history of asthma and other chronic lower respiratory diseases
CPT/HCPCS: 32555; 99285; 96365; 96366 ×3; 96367; 96372; 96375; 36415; 94760 ×2; 93005; 88108; 88305; 80053 ×2; 80048; 89050; 82565; 82550; 85025; 85027 ×2; 85610; 85730; 87070 ×2; 87205; 82945; 83615; 84157; 71045; 71046; 76604; 71250; G0378 ×3; J2543 ×2; J3370 ×3; J1940; J1650

== ENCOUNTER → 2021-07-15 | Outpatient (CLI) | payer OTHER ==
--- NOTE | 2021-07-16 11:35 | CA ---
Transthoracic Echo Report Name: Tyron Mcginnis Age: 71 Gender: M : 1950 Exam Date: 07/15/2021 13:12 Exam Location: [facility] Ht (in): 66 Wt (lb): 240 Ordering Physician: Javad Carlson DO ([id number]) Attending/Referring Phys: Javad Carlson DO ([id number]) Mental Health Clinician Whit Zendejas RDCS Procedure CPT: Indications: [place] Cardiac Hx: Tachycardia Technical Quality: Fair Contrast 1: Total Dose (mL): Contrast 2: Total Dose (mL): MEASUREMENTS (Male / Female) Normal Values 2D ECHO LV Diastolic Diameter PLAX 4.2 cm 4.2 - 5.9 / 3.9 - 5.3 cm LV Systolic Diameter PLAX 2.5 cm IVS Diastolic Thickness 1.4 cm 0.6 - 1.0 / 0.6 - 0.9 cm LVPW Diastolic Thickness 1.5 cm 0.6 - 1.0 / 0.6 - 0.9 cm LV Relative Wall Thickness 0.7 RV Internal Dim ED PLAX 2.9 cm LA Systolic Diameter LX 3.2 cm 3.0 - 4.0 / 2.7 - 3.8 cm M-MODE Aortic Root Diameter MM 3.5 cm AV Cusp Separation MM 2.2 cm DOPPLER AV Peak Velocity 93.0 cm/s AV Peak Gradient 3.5 mmHg MV Area PHT 2.6 cm??? Mitral E Point Velocity 41.3 cm/s Mitral A Point Velocity 85.2 cm/s Mitral E to A Ratio 0.5 MV Deceleration Time 296.8 ms MV E' Velocity 5.2 cm/s Mitral E to MV E' Ratio 7.9 TR Peak Velocity 253.9 cm/s TR Peak Gradient 25.8 mmHg Right Ventricular Systolic Press 29.7 mmHg FINDINGS Left Ventricle Left ventricular ejection fraction is estimated at 55-60 %. Left ventricular cavity size normal. Moderate concentric left ventricular hypertrophy. Right Ventricle Normal right ventricular size and function. Right ventricular systolic pressure within normal limits. Right Atrium Normal right atrial size. Left Atrium Normal left atrial size. Mitral Valve Structurally normal mitral valve. No mitral stenosis, regurgitation or prolapse. Mitral annular calcification. Aortic Valve Trileaflet aortic valve. No aortic valve stenosis or regurgitation. Tricuspid Valve Mild tricuspid regurgitation. Pulmonic Valve Pulmonic valve not well visualized. Pericardium Normal pericardium. Aorta Normal size aortic root and proximal ascending aorta. CONCLUSIONS Please note that the patient is tachycardic Overall normal left ventricular dimension and systolic function Please see above for further details Previewed by: Dr. Nolan Gusman MD (Electronically Signed) Final Date: 16 Jul 2021 11:34
== END | disposition home or self-care (01) ==
LOC: RADECHMAIN 12:50
PROVIDERS: ATTEND Internal Medicine
DX: I07.1 Rheumatic tricuspid insufficiency (principal)
CPT/HCPCS: 93306

== ENCOUNTER 2021-07-21 13:57 | Inpatient (IN) | payer OTHER, MEDICARE ==
[2021-07-20 11:51] VITALS: BMI 35.5
[2021-07-21] MEDS ORDERED: ONDANSETRON 4 MG/2 ML VIAL ONE (14:20)
[2021-07-21] MEDS ORDERED: LACTATED RINGERS 1,000 ML IV ONE ×2 (14:26→17:17)
[2021-07-21 14:43] LABS: Basophils # (A) 0.1 k/uL (0-0.2); Basophils % (A) 0 %; Eosinophils # (A) 0.2 k/uL (0-0.7); Eosinophils % (A) 2 %; HCT 34.6 % (39.0-53.0); HGB 10.7 gm/dL (13.0-17.5); Hypochromasia Slight; Lymphocytes # (A) 1.3 k/uL (1.0-4.8); Lymphocytes % (A) 9 %; MCH 25.4 pg (25.0-35.0); MCHC 30.9 g/dL (31.0-37.0); Mean Platelet Volume 6.3; Monocytes # (A) 0.9 k/uL (0-1.0); Monocytes % (A) 6 %; Neutrophils # (A) 12.7 k/uL (1.3-7.7); Neutrophils % (A) 83 %; Platelet Count 611 k/uL (150-450); RDW 14.6 % (11.5-15.5); WBC 15.4 k/uL (3.8-10.6)
[2021-07-21] MEDS ORDERED: DEXAMETHASONE SOD PHOSPHATE 4 MG/ML 1 ML VIAL IVP ONE (14:49)
[2021-07-21] MEDS ORDERED: ONDANSETRON 4 MG/2 ML VIAL IVP ONE (14:49)
[2021-07-21 14:53] LABS: MCV 82.2 fL (80.0-100.0)
[2021-07-21 15:01] LABS: African American GFR (CKD) >90 (>60 ml/min/1.73 sqM); Anion Gap 11 mmol/L; Blood Urea Nitrogen 17 mg/dL (9-20); Calcium 8.1 mg/dL (8.4-10.2); Carbon Dioxide 24 mmol/L (22-30); Chloride 101 mmol/L (98-107); Glucose 154 mg/dL (74-99); Non-African American GFR(CKD) 80 (>60 ml/min/1.73 sqM); Potassium 4.3 mmol/L (3.5-5.1); Sodium 136 mmol/L (137-145)
[2021-07-21] MEDS ORDERED: MIDAZOLAM 2 MG/2 ML VIAL IVP ONE (15:02)
[2021-07-21] MEDS ORDERED: DEXAMETHASONE SOD PHOSPHATE 10 MG/ML 1 ML VIAL ONE (16:36)
[2021-07-21] MEDS ORDERED: GLYCOPYRROLATE 0.2 MG/ML 2 ML VIAL ONE (16:36)
[2021-07-21] MEDS ORDERED: SUCCINYLCHOLINE CHLORIDE 100 MG/5 ML SYR IV ONE (16:36)
[2021-07-21] MEDS ORDERED: KETAMINE 10 MG/ML 20 ML VIAL ONE (16:36)
[2021-07-21] MEDS ORDERED: PROPOFOL 10 MG/ML 20 ML VIAL IV ONE (16:36)
[2021-07-21] MEDS ORDERED: NEOSTIGMINE 1 MG/ML 10 ML VIAL ONE (16:36)
[2021-07-21] MEDS ORDERED: HYDROmorphone (PF) 1 MG/ML ONE (16:36)
[2021-07-21] MEDS ORDERED: LIDOCAINE 2% INJ 20 MG/ML (2 ML VIAL) ONE (16:36)
[2021-07-21] MEDS ORDERED: fentaNYL (PF) 50 MCG/ML 2 ML AMP ONE (16:36)
[2021-07-21] MEDS ORDERED: ROCURONIUM 10 MG/ML (5 ML VIAL) IV ONE (16:36)
[2021-07-21] MEDS ORDERED: MIDAZOLAM 2 MG/2 ML VIAL ONE (16:36)
[2021-07-21] MEDS ORDERED: BUPIVACAINE (PF) 0.5% 30 ML VIAL SQ ONE ×2 (16:41→17:14)
[2021-07-21] MEDS ORDERED: ACETAMINOPHEN TAB 325 MG TAB PO PRN (19:41)
[2021-07-21] MEDS ORDERED: traMADol 50 MG TAB PO PRN (19:41)
[2021-07-21] MEDS ORDERED: ONDANSETRON 4 MG/2 ML VIAL IVP PRN (19:41)
[2021-07-21] MEDS ORDERED: DEXTROSE 5%-0.45% NACL 1,000 ML IV SCH (19:41)
[2021-07-21] MEDS ORDERED: KETOROLAC 15 MG/ML 1 ML VIAL IVP PRN (19:41)
[2021-07-21] MEDS ORDERED: IPRATROPIUM-ALBUTEROL 3 ML NEB IH PRN (19:41)
[2021-07-21] MEDS ORDERED: NALOXONE 0.4 MG/ML 1 ML VIAL IV PRN (19:45)
--- NOTE | 2021-07-21 19:50 | P.OP ---
Date of Procedure: 07/21/21 Preoperative Diagnosis: Recurrent left sided pleural effusion Ground glass opacity/nodules left lung Pleural thickening of left lung Postoperative Diagnosis: Same Procedure(s) Performed: 1. Bronchoscopy 2. Left video assisted thorascopy 3. Left thoracotomy 4. Left pleural biopsy t5. Left lung biopsy with partial decortication Implants: Left sided pleurX catheter Left tube thoracostomy 28F Anesthesia: GETA Surgeon: Antonio Enciso Estimated Blood Loss (ml): 100 Pathology: other (left pleural rind for permanent and culture, left lung for permanent) Condition: stable Disposition: PACU Indications for Procedure: This patient is a 71 year-old male referred to me by pulmonology for recurrent left sided pleural effusions. He underwent multiple drainage procedures at which time cytology was inconclusive. His CT scan of the chest also shows groundglass opacities and pleural thickening/inflammation. We discussed the option of lung/pleural biopsy and placement to better understand the etiology of his disease. The patient was in agreement and underwent cardiac clearance prior to surgery. Operative Findings: Extremely inflamed lung. Unable to visualize using thorascopy. Case converted to open thoracotomy. Left lung entirely encased in very thick pleura/rind. Attempted partial decortication. The rind was almost 2cm thick. Abnormal lung underneath suspicious for diffuse malignant process. Description of Procedure: The patient underwent arterial line placement in pre-op. He was brought to the operating room and placed in the supine position. He was intubated with a double lumen tube. Diagnostic bronchoscopy was performed to confirm placement of tube and to inspect the airway. The entire bronchial tree was visualized and was normal. There was minimal secretions and no masses identified. Next the patient was placed in the right lateral decubitus position. The left lung was prepped and draped in the usual sterile fashion. Antibiotics were given. We made a 2cm incision posterior to the scapula in the 7th intercostal space. Entry into the chest was gained under direct vision but there was a thick endothoracic fascia/pleura. It was difficult to sweep away with finger and there was very poor visualization. We then attempted to make a 2cm incision anterior axillary line and gain entry into the chest this way. Again it was very difficult to visualize anything. At this point, the decision was made to convert the operation to open thoracotomy in the 7th interspace. The lung was bluntly dissected away from the chest wall. There was an extremely thick rind around the lung which appeared white. There was no free fluid in the left lung cavity. At this time we attempted to decorticate part of the upper lobe. The rind was 1.5- 2cm thick and appeared very abnormal. The lung underneath was also abnormal. I sent some of the rind for biopsy as well as the lung. We left a 28F straight and 32F right angled tube in the chest cavity. We then re-approximated the ribs using #2 vicryl sutures. We closed the lastissmus dorsi fascia with a #1 PDS and the deep dermis with a 2-0 PDS. The skin was stapled. The ETT was then exchanged to a single lumen tube and the patient was brought to the ICU still intubated.
--- NOTE | 2021-07-21 20:00 | P.ANPRN ---
Procedure Note - Anesthesia - Invasive Line Right Arterial Line Time Out Performed: Yes (1502) Date of Procedure: 07/21/21 Time of Procedure: 15:16 Location of Patient: PreOp Preparation: Sterile Prep, Sterile Dressing Arterial Line Location: Radial (left) Ultrasound Used: No Purpose - Visualization and Identification of Vasculature: No Needle Guage: 20g Image Stored and Saved: No Narrative: Central line placement per sterile protocol utilized.
--- NOTE | 2021-07-21 20:00 | P.ANPRN ---
Procedure Note - Anesthesia - Nerve Block Performed Left Erector Spinae Single Time Out Performed: Yes (1502) Date of Procedure: 07/21/21 Procedure Start Time: 15:03 Procedure Stop Time: 15:08 Location of Patient: PreOp Indication: Acute Post-Operative Pain, Requested by Surgeon Specifically requested for management of pain by DrArielle: Antonio Enciso Sedation Type: Sedate with meaningful contact maintained Preparation: Sterile Prep Position: Sitting Catheter: None Needle Types: Pajunk Needle Gauge: 21 Ultrasound used to visualize needle placement: Yes Ultrasound used to observe medication spread: Yes Injectate: 0.5% Ropivacaine (see comment for volume) (30cc) Blood Aspirated: No Pain Paresthesia on Injection Noted: No Resistance on Injection: Normal Image Stored and Saved: Yes Events: Uneventful and Well Tolerated
--- NOTE | 2021-07-21 20:02 | P.ANPRN ---
Procedure Note - Anesthesia - Invasive Line Right Central Line Time Out Performed: Yes (1909) Date of Procedure: 07/21/21 Time of Procedure: 19:11 Location of Patient: PreOp Preparation: Sterile Prep, Sterile Dressing Arterial Line Location: Radial Ultrasound Used: Yes Purpose - Visualization and Identification of Vasculature: Yes Needle Guage: 18g Image Stored and Saved: Yes Narrative: Central line placement per sterile protocol utilized. +sterile protocol. +local +angio +jwire +uneventful dilation and introduction right IJ cordis. All lumens bled and flushed.
[2021-07-21 20:12] LABS: Glucose,Whole Blood 189 mg/dL (75-99)
--- NOTE | 2021-07-21 20:35 | XR ---
EXAMINATION TYPE: XR chest 1V DATE OF EXAM: 07/21/2021 COMPARISON: Today HISTORY: Respiratory failure TECHNIQUE: FINDINGS: There is endotracheal tube 3 cm from the shaye. There is left-sided chest tube. Right jugu lar catheter has tip in the superior vena cava. There is nasogastric tube in the stomach. No pneumoth orax. There is some pleural thickening and infiltrate left lower lobe. Right lung is relatively clear . There is chest tube over the left lower lung field. There are skin ender over the left lateral ches t wall. There appears to be fracture of the lateral left sixth rib. No heart failure seen. IMPRESSION: Previous surgery. Left-sided chest tubes. No pneumothorax. Infiltrate and pleural thicken ing on the left side improved slightly compared to old exam. Fracture left sixth rib. Detail limited. Fracture appears to be new compared to old exam.
[2021-07-21 20:47] LABS: ABG HCO3 28 mmol/L (21-25); ABG Oxygen Saturation 99.6 % (94-97); ABG PCO2 48 mmHg (35-45); ABG PH 7.38 (7.35-7.45); ABG PO2 247 mmHg (83-108); ABG TCO2 30 mmol/L (19-24); Allen Test Performed? Yes
[2021-07-21] MEDS ORDERED: SODIUM CHLORIDE 0.9% 500 ML 500 ML IV ONE (21:56)
[2021-07-21] MEDS: CHLORHEXIDINE GLUCONATE 15 ML CUP MUCOUS MEM SCH (22:17)
[2021-07-21 23:05] LABS: Glucose,Whole Blood 222 mg/dL (75-99)
[2021-07-21] MEDS: HEPARIN SODIUM,PORCINE/PF 5,000 UNIT/0.5 ML SYRINGE SQ SCH (23:37)
[2021-07-21] MEDS: INSULIN ASPART (NovoLOG) 100 UNIT/ML VIAL SQ SCH (23:37)
[2021-07-22 04:41] LABS: Basophils % (A) 0 %; Eosinophils % (A) 0 %; HCT 26.8 % (39.0-53.0); Hypochromasia Marked; Lymphocytes # (A) 0.8 k/uL (1.0-4.8); Lymphocytes % (A) 6 %; MCH 24.4 pg (25.0-35.0); MCHC 29.1 g/dL (31.0-37.0); Mean Platelet Volume 6.6; Monocytes # (A) 0.6 k/uL (0-1.0); Monocytes % (A) 4 %; Neutrophils # (A) 13.1 k/uL (1.3-7.7); Neutrophils % (A) 90 %; Platelet Count 509 k/uL (150-450); RBC 3.19 m/uL (4.30-5.90); RDW 14.9 % (11.5-15.5); WBC 14.6 k/uL (3.8-10.6)
[2021-07-22 04:43] LABS: HGB 7.8 gm/dL (13.0-17.5)
[2021-07-22 04:59] LABS: African American GFR (CKD) >90 (>60 ml/min/1.73 sqM); Anion Gap 4 mmol/L; Blood Urea Nitrogen 23 mg/dL (9-20); Calcium 7.6 mg/dL (8.4-10.2); Carbon Dioxide 27 mmol/L (22-30); Chloride 103 mmol/L (98-107); Glucose 187 mg/dL (74-99); Non-African American GFR(CKD) 85 (>60 ml/min/1.73 sqM); Potassium 4.7 mmol/L (3.5-5.1); Sodium 134 mmol/L (137-145)
[2021-07-22 05:13] LABS: Glucose,Whole Blood 217 mg/dL (75-99)
[2021-07-22] MEDS: INSULIN ASPART (NovoLOG) 100 UNIT/ML VIAL SQ SCH ×3 (05:15→20:01)
[2021-07-22] MEDS: PANTOPRAZOLE 40 MG TABLET PO SCH (05:15)
[2021-07-22 06:07] LABS: ABG Base Excess 3.6 mmol/L; ABG HCO3 28 mmol/L (21-25); ABG PCO2 40 mmHg (35-45); ABG PH 7.45 (7.35-7.45); ABG PO2 87 mmHg (83-108); ABG TCO2 29 mmol/L (19-24); Allen Test Performed? Yes
--- NOTE | 2021-07-22 08:14 | XR ---
EXAMINATION TYPE: XR chest 1V portable DATE OF EXAM: 07/22/2021 COMPARISON: X-ray dated 07/21/2021 HISTORY: Tube placement TECHNIQUE: Single frontal view of the chest is obtained. FINDINGS: The tip of endotracheal tube is about 2.5 cm proximal to the shaye. Right-sided central central veno us line with the tip is at the atriocaval junction. NG tube is seen with the tip is below the diaphra gm. Left-sided intercostal drainage tubes with the tips superimposed on the left lung apex and the le ft lung base. Persistent displaced fracture of the axillary portion of the left sixth rib with a left sided chest w all soft tissue emphysema. Heterogeneous opacity in the left midlung zone with suspected left retroca rdiac opacity demonstrating air bronchogram within, contusion can't be excluded. No right-sided pleur al effusion. No definite pneumothorax. Persistent left apical pleural thickening. Cardiac size can't be properly assessed. Degenerative changes of thoracic spine. IMPRESSION: As above.
[2021-07-22] MEDS: SODIUM CHLORIDE 0.9% 1,000 ML IV SCH (08:16)
[2021-07-22] MEDS: HEPARIN SODIUM,PORCINE/PF 5,000 UNIT/0.5 ML SYRINGE SQ SCH ×2 (08:19→16:43)
[2021-07-22] MEDS: CHLORHEXIDINE GLUCONATE 15 ML CUP MUCOUS MEM SCH (08:19)
--- NOTE | 2021-07-22 08:50 | P.PN ---
Subjective Progress Note Date: 07/22/21 Principal diagnosis: Recurrent left-sided pleural effusion, groundglass opacity/nodules of the left lung, pleural thickening of the left lung. Previous medical history of COPD, hy pertension, left pleural effusion status post thoracentesis on 06/08/2021 and 06/24/2021 both with inconclusive pathology, never smoker POD #1 bronchoscopy, left video-assisted thoracoscopy with subsequent left thoracotomy, left pleural biopsy, left lung biopsy with partial decortication The patient was seen and examined this morning with Dr. Lr. He remains sedated and intubated in the intensive care unit, currently in no distress. Remains in sinus rhythm, hemodynamically stable on no inotropes or pressors. With lightening of sedation nursing reports patient able to move all extremities and follows all commands. Expect weaning and extubation today. No other new concerns. Objective - Vital Signs Vital signs: Vital Signs Temp 98.1 F 07/22/21 04:00 Pulse 90 07/22/21 07:00 Resp 18 07/22/21 07:00 BP 115/75 07/22/21 07:00 Pulse Ox 96 07/22/21 07:00 FiO2 40 07/22/21 07:53 Intake & Output 07/21/21 07/22/21 07/22/21 18:59 06:59 18:59 Intake Total 1550 1170.648 Output Total 652 Balance 1550 518.648 Weight 106.8 kg 109.5 kg Intake: IV 1550 Intake, IV Titration 1170.648 Amount Dextrose 5%-0.45% NaCl 1, 550 000 ml @ 50 mls/hr IV . Q20H [facility] Rx#:[id number] Sodium Chloride 0.9% 500 500 ml 500 ml @ 999 mls/hr IV .Q31M ONE Rx#:[id number] ceFAZolin 2 gm In Sodium 50 Chloride 0.9% 50 ml @ 100 mls/hr IVPB Q8HR [facility] Rx# :[id number] propofoL 1,000 mg In 70.648 Empty Bag 1 bag @ 5 MCG/ KG/MIN 3.204 mls/hr IV . Q24H ALEK[facility] Rx#:[id number] Output: Chest Tube Drainage 142 Left Anterior Chest 78 Left Posterior Chest 64 Urine 410 Estimated Blood Loss 100 Other: Voiding Method Indwelling Catheter ABP, PAP, CO, CI - Last Documented Arterial Blood Pressure 110/74 - Exam CONSTITUTIONAL: Appears comfortable, cooperative, no acute distress RESPIRATORY: Lungs sounds diminished bilaterally. Respirations even, nonlabored on mechanical ventilation. Current ventilator settings assist control mode, FiO2 40%, tidal volume 450, respiratory rate 16, PEEP 5. 8.5 ET tube present, 24 at the lip CARDIOVASCULAR: S1, S2 present. Regular rate and rhythm, sinus rhythm on tel emetry. Palpable peripheral pulses bilaterally. No edema present. No calf pain or tenderness noted. SCDs present. GASTROINTESTINAL: Abdomen soft, nontender, nondistended. Active bowel sounds present 4 quadrants. OG tube present to low intermittent suction, minimal drainage GENITOURINARY: Nathan present draining clear, yellow urine. Output 35-45 mL per hour overnight INTEGUMENTARY: Skin is warm and dry with evidence of good perfusion. Left- sided thoracic incision well approximated and covered with dry intact dressing. NEUROLOGIC: Sedated on mechanical ventilation INVASIVE LINES AND TUBES: Left anterior apical chest tube and left posterior right angle chest tube present and connected to wall suction, no air leaks present. Left anterior apical chest tube with 22 mL serosanguineous drainage overnight, 75 mL since surgery. Left posterior right angle chest tube with 26 mL serosanguineous drainage overnight, 60 mL since surgery. - Allied health notes Allied health notes reviewed: nursing - Labs CBC & Chem 7: 07/22/21 04:15 07/22/21 04:15 Labs: Abnormal Lab Results - Last 24 Hours (Table) 07/21/21 07/21/21 07/21/21 Range/Units 14:32 14:32 20:09 WBC 15.4 H (3.8-10.6) k/uL RBC 4.20 L (4.30-5.90) m/uL Hgb 10.7 L (13.0-17.5) gm/dL Hct 34.6 L (39.0-53.0) % MCH (25.0-35.0) pg MCHC 30.9 L (31.0-37.0) g/dL Plt Count 611 H (150-450) k/uL Neutrophils # 12.7 H (1.3-7.7) k/uL Lymphocytes # (1.0-4.8) k/uL ABG pCO2 (35-45) mmHg ABG pO2 (83-108) mmHg ABG HCO3 (21-25) mmol/L ABG Total CO2 (19-24) mmol/L ABG O2 Saturation (94-97) % Sodium 136 L (137-145) mmol/L BUN (9-20) mg/dL Glucose 154 H (74-99) mg/dL POC Glucose (mg/dL) 189 H (75-99) mg/dL Calcium 8.1 L (8.4-10.2) mg/dL 07/21/21 07/21/21 07/22/21 Range/Units 20:37 23:02 04:15 WBC 14.6 H (3.8-10.6) k/uL RBC 3.19 L (4.30-5.90) m/uL Hgb 7.8 L D (13.0-17.5) gm/dL Hct 26.8 L (39.0-53.0) % MCH 24.4 L (25.0-35.0) pg MCHC 29.1 L (31.0-37.0) g/dL Plt Count 509 H (150-450) k/uL Neutrophils # 13.1 H (1.3-7.7) k/uL Lymphocytes # 0.8 L (1.0-4.8) k/uL ABG pCO2 48 H (35-45) mmHg ABG pO2 247 H (83-108) mmHg ABG HCO3 28 H (21-25) mmol/L ABG Total CO2 30 H (19-24) mmol/L ABG O2 Saturation 99.6 H (94-97) % Sodium (137-145) mmol/L BUN (9-20) mg/dL Glucose (74-99) mg/dL POC Glucose (mg/dL) 222 H (75-99) mg/dL Calcium (8.4-10.2) mg/dL 07/22/21 07/22/21 07/22/21 Range/Units 04:15 05:11 06:03 WBC (3.8-10.6) k/uL RBC (4.30-5.90) m/uL Hgb (13.0-17.5) gm/dL Hct (39.0-53.0) % MCH (25.0-35.0) pg MCHC (31.0-37.0) g/dL Plt Count (150-450) k/uL Neutrophils # (1.3-7.7) k/uL Lymphocytes # (1.0-4.8) k/uL ABG pCO2 (35-45) mmHg ABG pO2 (83-108) mmHg ABG HCO3 28 H (21-25) mmol/L ABG Total CO2 29 H (19-24) mmol/L ABG O2 Saturation (94-97) % Sodium 134 L (137-145) mmol/L BUN 23 H (9-20) mg/dL Glucose 187 H (74-99) mg/dL POC Glucose (mg/dL) 217 H (75-99) mg/dL Calcium 7.6 L (8.4-10.2) mg/dL - Imaging and Cardiology Chest x-ray: report reviewed, image reviewed Assessment and Plan Assessment: 1. Recurrent left-sided pleural effusion, groundglass opacity/nodules of the left lung, pleural thickening of the left lung, status post bronchoscopy, left VATS with subsequent thoracotomy, pleural and lung biopsy with partial decortication 2. History of COPD 3. History of hypertension 4. History of left pleural effusion status post thoracentesis on 06/08/2021 and 06/24/2021 both with inconclusive pathology 5. Never smoker Plan: 1. Ventilator management per Dr. Cisse, wean to extubate when appropriate 2. Once extubated will encourage incentive spirometry is 10 times every hour while awake. Bronchodilators per pulmonology 3. Once extubated will increase activity as tolerated 4. Once extubated will discontinue left posterior right angle chest tube. Continue left anterior apical chest tube for another 24 hours 5. Pain control with current medication regimen around the clock. If pain is not controlled once extubated will start Dilaudid [employer] 6. Once extubated and eating Will Hep-Lock IV 7. Pathology pending, we'll monitor 8. GI/DVT prophylaxis 9. Will monitor daily labs and x-rays 10. More recommendations to follow
[2021-07-22] MEDS ORDERED: lisinopriL 10 MG TAB PO SCH (09:00)
[2021-07-22] MEDS ORDERED: FUROSEMIDE 40 MG TAB PO SCH (09:00)
--- NOTE | 2021-07-22 09:04 | P.CNPUL ---
History of Present Illness Consult date: 07/22/21 Reason for consult: pleural effusion History of present illness: 70-year-old male patient is currently postop day #1 as the patient was taken to the operating room yesterday by cardiothoracic surgery and the patient underwent a open left thoracotomy, left pleural biopsy, left lung biopsy with partial decortication, and the patient was given chest tubes 2 on the left . Intraoperatively, it was very difficult to do a thoracoscopy and the patient was switched and converted to an open thoracotomy and the patient was found to have a rind around the left lung measuring up to 2 cm size or thickness and partial decortication was done and chest tube was inserted and biopsies of the left pleural and left lung was done. This morning, the patient on a mechanical ventilator. The patient assist- control mode at the rate of 60 with tidal volume of 450 and FiO2 of 40% with a PEEP of 5. This morning blood gases showed a pH of 7.45 with a pCO2 of 40 and pO2 of 87. The white cell count is at 14.6 with a hemoglobin of 7.8 and a platelet count of 509. Normal renal function. Output from the chest tubes have been minimal at this point in time. There is no evidence of any air leak. Repeat chest x-ray from today shows no evidence of any pneumothorax. ET tube is in a good location. The patient has a right IJ triple-lumen catheter in place. The patient continues to have some opacification of the left lower lobe. No significant pleural effusion. There is cardiomegaly. There is improved aeration in the left upper lobe area. There is left apical pleural thickening. Currently is on propofol running at 20 mics per kilogram per minute and the patient is also on IV fluids running at 10 mL an hour. He is calm and comfortable and he is hemodynamically stable. Urine output is adequate for now. No other significant events overnight. Review of Systems ROS unobtainable: due to endotracheal tube Past Medical History Past Medical History: COPD, Hypertension Additional Past Medical History / Comment(s): Hx Woods's palsy. Had left pleural effusion on 06/08/21, s/p left thoracentesis status post, sinus tachycardia - seen for cardiac clearance by Dr Carlson. Occ shortness of breath, has O2 @ 2L, using prn. History of Any Multi-Drug Resistant Organisms: None Reported Past Surgical History: No Surgical Hx Reported Past Anesthesia/Blood Transfusion Reactions: Unable to Obtain Additional Past Anesthesia/Blood Transfusion Reaction / Comment(s): Pt has never had surgery Smoking Status: Never smoker - Past Family History Mother Family Medical History: Cancer Additional Family Medical History / Comment(s): Mother of pancreatic cancer at the age of 61 yrs. Father Family Medical History: COPD, Hypertension Additional Family Medical History / Comment(s): Father is 90 yrs old. Brother(s) Family Medical History: Hypertension Additional Family Medical History / Comment(s): epilepsy Medications and Allergies Home Medications Medication Instructions Recorded Confirmed Type lisinopriL [Zestril] 10 mg PO DAILY #30 tab 06/10/21 07/21/21 Rx Furosemide [Lasix] 40 mg PO DAILY #15 tab 06/26/21 07/21/21 Rx Allergies Allergy/AdvReac Type Severity Reaction Status Date / Time No Known Allergies Allergy Verified 07/21/21 14:15 Physical Exam Vitals: Vital Signs Temp Pulse Pulse Pulse Pulse Resp BP 07/22/21 07:53 07/22/21 07:00 90 18 115/75 07/22/21 06:00 89 19 108/80 07/22/21 05:00 90 18 116/77 07/22/21 04:00 98.1 F 90 20 105/77 07/22/21 03:40 07/22/21 03:00 92 19 07/22/21 02:00 93 19 07/22/21 01:00 93 18 07/22/21 00:00 98.4 F 96 19 07/21/21 23:50 07/21/21 23:00 98.6 F 100 19 07/21/21 22:00 99.0 F 108 H 20 07/21/21 21:00 99.1 F 111 H 18 07/21/21 20:52 07/21/21 20:45 07/21/21 20:00 99.1 F 111 H 16 07/21/21 19:56 07/21/21 19:53 07/21/21 15:10 116 H 18 07/21/21 14:32 119 H 07/21/21 14:27 126 H 07/21/21 14:17 97.8 F 130 H 20 BP BP Pulse Ox FiO2 07/22/21 07:53 40 07/22/21 07:00 96 40 07/22/21 06:00 95 07/22/21 05:00 97 07/22/21 04:00 96 40 07/22/21 03:40 40 07/22/21 03:00 105/77 108/83 97 50 07/22/21 02:00 118/75 104/70 97 50 07/22/21 01:00 116/77 115/87 98 50 07/22/21 00:00 114/73 94/70 97 50 07/21/21 23:50 50 07/21/21 23:00 107/75 95/81 97 50 07/21/21 22:00 107/74 97/70 95 50 07/21/21 21:00 117/76 114/80 95 50 07/21/21 20:52 50 07/21/21 20:45 50 07/21/21 20:00 114/80 135/74 99 100 07/21/21 19:56 100 07/21/21 19:53 100 07/21/21 15:10 132/77 97 07/21/21 14:32 07/21/21 14:27 07/21/21 14:17 130/68 95 Intake and Output 07/21/21 07/22/21 07/22/21 22:59 06:59 14:59 Intake Total 1719.598 501.05 20 Output Total 292 360 40 Balance 1427.598 141.05 -20 Intake: IV 1050 Intake, IV Titration 669.598 501.05 20 Amount Dextrose 5%-0.45% NaCl 1, 150 400 000 ml @ 50 mls/hr IV . Q20H [facility] Rx#:[id number] Sodium Chloride 0.9% 1, 20 000 ml @ 50 mls/hr IV . Q20H [facility] Rx#:[id number] Sodium Chloride 0.9% 500 500 ml 500 ml @ 999 mls/hr IV .Q31M [facility] Rx#:[id number] ceFAZolin 2 gm In Sodium 50 Chloride 0.9% 50 ml @ 100 mls/hr IVPB Q8HR [facility] Rx# :[id number] propofoL 1,000 mg In 19.598 51.05 Empty Bag 1 bag @ 5 MCG/ KG/MIN 3.204 mls/hr IV . Q24H [facility] Rx#:[id number] Output: Chest Tube Drainage 87 55 Left Anterior Chest 52 26 Left Posterior Chest 35 29 Urine 105 305 40 Estimated Blood Loss 100 Other: Voiding Method Indwelling Catheter Indwelling Catheter Weight 109.5 kg ABP, PAP, CO, CI - Last 8 Hours Arterial Blood Pressure 110/74 Arterial Blood Pressure 114/69 Arterial Blood Pressure 108/67 Arterial Blood Pressure 106/67 Results - Laboratory Findings CBC and BMP: 07/22/21 04:15 07/22/21 04:15 ABG ABG pH 7.45 (7.35-7.45) 07/22/21 06:03 ABG pCO2 40 mmHg (35-45) 07/22/21 06:03 ABG pO2 87 mmHg (83-108) 07/22/21 06:03 ABG O2 Saturation 97.0 % (94-97) 07/22/21 06:03 Abnormal lab findings: Abnormal Labs 07/21/21 07/21/21 07/21/21 14:32 14:32 20:09 WBC 15.4 H RBC 4.20 L Hgb 10.7 L Hct 34.6 L MCH MCHC 30.9 L Plt Count 611 H Neutrophils # 12.7 H Lymphocytes # ABG pCO2 ABG pO2 ABG HCO3 ABG Total CO2 ABG O2 Saturation Sodium 136 L BUN Glucose 154 H POC Glucose (mg/dL) 189 H Calcium 8.1 L 07/21/21 07/21/21 07/22/21 20:37 23:02 04:15 WBC 14.6 H RBC 3.19 L Hgb 7.8 L D Hct 26.8 L MCH 24.4 L MCHC 29.1 L Plt Count 509 H Neutrophils # 13.1 H Lymphocytes # 0.8 L ABG pCO2 48 H ABG pO2 247 H ABG HCO3 28 H ABG Total CO2 30 H ABG O2 Saturation 99.6 H Sodium BUN Glucose POC Glucose (mg/dL) 222 H Calcium 07/22/21 07/22/21 07/22/21 04:15 05:11 06:03 WBC RBC Hgb Hct MCH MCHC Plt Count Neutrophils # Lymphocytes # ABG pCO2 ABG pO2 ABG HCO3 28 H ABG Total CO2 29 H ABG O2 Saturation Sodium 134 L BUN 23 H Glucose 187 H POC Glucose (mg/dL) 217 H Calcium 7.6 L - Diagnostic Findings Chest x-ray: image reviewed Assessment and Plan Plan: Left thoracotomy the left pleural and lung biopsy, partial decortication and association of 2 chest tubes. The patient is postop day #1 Acute hypoxic respiratory failure following thoracotomy/partial decortication Abnormal left pleural surface with a thick rind measuring up to 2 cm in size, postbiopsy, highly suspicious for malignancy, rule out adenocarcinoma versus mesothelioma versus sarcoma Recurrent left-sided pleural effusion postthoracentesis with the fluid being exudate with a negative fluid cytology Chronic shortness of breath secondary to above Morbid obesity Hypertension Anemia which is related to anemia of chronic disease. Current hemoglobin is at 7.8. The patient is hemodynamically stable Plan Continue ventilator support. The patient is currently off sedation. We're going to wean off the propofol and check weaning parameters. In my opinion, the patient's pulmonary status is stable and he should be able to extubated without any major difficulties. We'll proceed with checking weaning parameters, give the patient is point is breathing trial and proceed with extubation accordingly. Monitor the output from the chest tubes. At this point in time, the output is minimal. We'll be awaiting impatiently the results of the left pleural biopsy with a high suspicion for malignancy. We'll monitor the hemoglobin. No need for any blood transfusion. The patient had some intraoperative blood loss and subsequent hemoglobin from today is at 7.8. No evidence of any active bleeding for now. The patient has a triple lumen catheter in place. The patient has an arterial line. The patient is stable for now. Further recommendations are to follow.
[2021-07-22 10:10] LABS: ABG HCO3 27 mmol/L (21-25); ABG Oxygen Saturation 97.5 % (94-97); ABG PCO2 37 mmHg (35-45); ABG PH 7.46 (7.35-7.45); ABG PO2 92 mmHg (83-108); ABG TCO2 28 mmol/L (19-24)
[2021-07-22 14:47] LABS: Glucose,Whole Blood 174 mg/dL (75-99)
[2021-07-22 14:53] LABS: Glucose,Whole Blood 178 mg/dL (75-99)
[2021-07-22] MEDS: traMADol 50 MG TAB PO SCH ×2 (15:56→18:18)
[2021-07-22] MEDS: KETOROLAC 15 MG/ML 1 ML VIAL IVP SCH ×2 (15:57→20:02)
[2021-07-22 17:35] LABS: Glucose,Whole Blood 221 mg/dL (75-99)
[2021-07-22 19:45] LABS: Glucose,Whole Blood 206 mg/dL (75-99)
[2021-07-23] MEDS: traMADol 50 MG TAB PO SCH ×4 (00:02→16:52)
[2021-07-23] MEDS: HEPARIN SODIUM,PORCINE/PF 5,000 UNIT/0.5 ML SYRINGE SQ SCH ×3 (00:03→16:51)
[2021-07-23] MEDS: KETOROLAC 15 MG/ML 1 ML VIAL IVP SCH (03:50)
[2021-07-23] MEDS ORDERED: SODIUM CHLORIDE 0.9% 1,000 ML IV ONE (04:52)
[2021-07-23] MEDS: SODIUM CHLORIDE 0.9% 1,000 ML IV SCH (05:03)
[2021-07-23 05:41] LABS: HCT 24.6 % (39.0-53.0); HGB 7.2 gm/dL (13.0-17.5); Hypochromasia Marked; MCH 24.8 pg (25.0-35.0); MCHC 29.3 g/dL (31.0-37.0); MCV 84.7 fL (80.0-100.0); Mean Platelet Volume 6.6; Platelet Count 540 k/uL (150-450); RDW 14.8 % (11.5-15.5); WBC 21.2 k/uL (3.8-10.6)
[2021-07-23 05:59] LABS: Calcium 7.6 mg/dL (8.4-10.2); Potassium 4.2 mmol/L (3.5-5.1)
--- NOTE | 2021-07-23 06:08 | XR ---
EXAMINATION TYPE: XR chest 1V portable DATE OF EXAM: 07/23/2021 CLINICAL HISTORY: Difficulty breathing progress study. TECHNIQUE: Single AP portable semiupright view of the chest is obtained. COMPARISON: Chest x-ray from one day earlier and older studies. FINDINGS: Interval extubation with removal of endotracheal and orogastric tubes. Stable right internal audit senior manager al jugular central venous catheter. Stable left-sided apical chest tube. Interval removal of left bas ilar chest tube. Overlying horizontal skin ender redemonstrated. Some subcutaneous emphysema is sli ghtly improved at this level. Persisting cardiomegaly with left mid to lower lung opacity. Right lung remains clear. Multilevel spu rring in the spine redemonstrated. IMPRESSION: Interval extubation. Left-sided chest tube redemonstrated with left mid to lower lung acu te infiltrate and/or atelectasis and small left lateral pneumothorax. Right lung remains clear. No si gnificant change from one day earlier.
[2021-07-23 06:41] LABS: Glucose,Whole Blood 136 mg/dL (75-99)
[2021-07-23] MEDS: PANTOPRAZOLE 40 MG TABLET PO SCH (07:11)
[2021-07-23] MEDS: INSULIN ASPART (NovoLOG) 100 UNIT/ML VIAL SQ SCH ×4 (07:11→22:57)
[2021-07-23] MEDS ORDERED: ALBUMIN HUMAN 5% 500 ML in EMPTY BAG 1 BAG IVPB STA (07:16)
--- NOTE | 2021-07-23 09:08 | P.PN ---
Subjective Progress Note Date: 07/23/21 Principal diagnosis: Recurrent left-sided pleural effusion, groundglass opacity/nodules of the left lung, pleural thickening of the left lung. Previous medical history of COPD, hy pertension, left pleural effusion status post thoracentesis on 06/08/2021 and 06/24/2021 both with inconclusive pathology, never smoker POD #2 bronchoscopy, left video-assisted thoracoscopy with subsequent left thoracotomy, left pleural biopsy, left lung biopsy with partial decortication The patient was seen and examined this morning sitting up in a chair in the intensive care unit in no acute distress. He was successfully extubated yesterday at 10:20. Remains in sinus rhythm, blood pressure has been marginal. Posterior chest tube discontinued yesterday. Nathan catheter discontinued yeste afternoon, patient has not voided but has not had high residual either. States pain is mostly controlled with current medication regimen. Patient needs much encouragement to cough, deep breathe, ambulate. Objective - Vital Signs Vital signs: Vital Signs Temp 98.1 F 07/23/21 08:00 Pulse 111 H 07/23/21 08:00 Resp 28 H 07/23/21 08:00 BP 95/60 07/23/21 08:00 Pulse Ox 93 L 07/23/21 08:00 FiO2 40 07/22/21 08:01 Intake & Output 07/22/21 07/23/21 07/23/21 18:59 06:59 18:59 Intake Total 062.482 3083 100 Output Total 530 80 Balance -088.910 2383 100 Weight 111.1 kg Intake: IV 220 1510 100 Sodium Chloride 0.9% 1, 220 510 100 000 ml @ 50 mls/hr IV . Q20H [facility] Rx#:[id number] Sodium Chloride 0.9% 1, 1000 000 ml @ 999 mls/hr IV . Q1H1M [facility] Rx#:[id number] Intake, IV Titration 111.741 Amount Sodium Chloride 0.9% 1, 20 000 ml @ 50 mls/hr IV . Q20H [facility] Rx#:[id number] propofoL 1,000 mg In 91.741 Empty Bag 1 bag @ 5 MCG/ KG/MIN 3.204 mls/hr IV . Q24H [facility] Rx#:[id number] Oral 1000 Output: Chest Tube Drainage 80 45 Left Anterior Chest 50 45 Left Posterior Chest 30 Urine 450 35 Other: Voiding Method Indwelling Catheter Urinal Urinal # Voids 0 0 ABP, PAP, CO, CI - Last Documented Arterial Blood Pressure 93/56 - Exam CONSTITUTIONAL: Appears comfortable, cooperative, no acute distress RESPIRATORY: Lungs sounds diminished bilaterally. Respirations even, nonlabored. Currently on 2 L nasal cannula with oxygen saturation 95%. Able to achieve 1000 mL on his incentive spirometry with lots of encouragement. Strong cough. CARDIOVASCULAR: S1, S2 present. Regular rate and rhythm, sinus rhythm on telemetry. Palpable peripheral pulses bilaterally. No edema present. No calf pain or tenderness noted. SCDs present. GASTROINTESTINAL: Abdomen soft, nontender, nondistended. Active bowel sounds present 4 quadrants. Tolerating diet. Positive flatus GENITOURINARY: Nathan discontinued yesterday, bladder scan revealed low urine amounts INTEGUMENTARY: Skin is warm and dry with evidence of good perfusion. Left- sided thoracic incision well approximated and covered with dry intact dressing. NEUROLOGIC: Cranial nerves II through XII intact MUSKULOSKELETAL: Able to move all extremities, strength equal bilaterally PSYCHIATRIC: Alert and oriented to person place and time, appropriate affect, intact judgment and insight INVASIVE LINES AND TUBES: Left anterior apical chest tube present and connected to wall suction, no air leaks present. Left anterior apical chest tube with 25 mL serosanguineous drainage overnight, 100 mL in the last 24 hours. - Allied health notes Allied health notes reviewed: nursing - Labs CBC & Chem 7: 07/23/21 05:15 07/23/21 05:15 Labs: Abnormal Lab Results - Last 24 Hours (Table) 07/22/21 07/22/21 07/22/21 Range/Units 10:07 11:28 12:16 WBC (3.8-10.6) k/uL RBC (4.30-5.90) m/uL Hgb (13.0-17.5) gm/dL Hct (39.0-53.0) % MCH (25.0-35.0) pg MCHC (31.0-37.0) g/dL Plt Count (150-450) k/uL ABG pH 7.46 H (7.35-7.45) ABG HCO3 27 H (21-25) mmol/L ABG Total CO2 28 H (19-24) mmol/L ABG O2 Saturation 97.5 H (94-97) % Sodium (137-145) mmol/L BUN (9-20) mg/dL Glucose (74-99) mg/dL POC Glucose (mg/dL) 174 H 178 H (75-99) mg/dL Calcium (8.4-10.2) mg/dL 07/22/21 07/22/21 07/23/21 Range/Units 17:32 19:43 05:15 WBC 21.2 H (3.8-10.6) k/uL RBC 2.90 L (4.30-5.90) m/uL Hgb 7.2 L (13.0-17.5) gm/dL Hct 24.6 L (39.0-53.0) % MCH 24.8 L (25.0-35.0) pg MCHC 29.3 L (31.0-37.0) g/dL Plt Count 540 H (150-450) k/uL ABG pH (7.35-7.45) ABG HCO3 (21-25) mmol/L ABG Total CO2 (19-24) mmol/L ABG O2 Saturation (94-97) % Sodium (137-145) mmol/L BUN (9-20) mg/dL Glucose (74-99) mg/dL POC Glucose (mg/dL) 221 H 206 H (75-99) mg/dL Calcium (8.4-10.2) mg/dL 07/23/21 07/23/21 Range/Units 05:15 06:40 WBC (3.8-10.6) k/uL RBC (4.30-5.90) m/uL Hgb (13.0-17.5) gm/dL Hct (39.0-53.0) % MCH (25.0-35.0) pg MCHC (31.0-37.0) g/dL Plt Count (150-450) k/uL ABG pH (7.35-7.45) ABG HCO3 (21-25) mmol/L ABG Total CO2 (19-24) mmol/L ABG O2 Saturation (94-97) % Sodium 131 L (137-145) mmol/L BUN 34 H (9-20) mg/dL Glucose 133 H (74-99) mg/dL POC Glucose (mg/dL) 136 H (75-99) mg/dL Calcium 7.6 L (8.4-10.2) mg/dL Microbiology - Last 24 Hours (Table) 07/21/21 19:22 Gram Stain - Preliminary Lung - Left Tissue Culture - Preliminary 07/21/21 19:22 Fungal Culture - Preliminary Lung - Left 07/21/21 19:22 Acid Fast Bacilli Culture - Preliminary Lung - Left 07/21/21 19:22 Anaerobic Culture - Preliminary Lung - Left - Imaging and Cardiology Chest x-ray: report reviewed, image reviewed Assessment and Plan Assessment: 1. Recurrent left-sided pleural effusion, groundglass opacity/nodules of the left lung, pleural thickening of the left lung, status post bronchoscopy, left VATS with subsequent thoracotomy, pleural and lung biopsy with partial decortication 2. History of COPD 3. History of hypertension 4. History of left pleural effusion status post thoracentesis on 06/08/2021 and 06/24/2021 both with inconclusive pathology 5. Never smoker 6. Anemia of chronic disease Plan: 1. Discontinue central line 2. Wean O2 as tolerated, encourage incentive spirometry is 10 times every hour while awake. Bronchodilators per pulmonology 3. Increase activity as tolerated, out of bed for all meals, ambulate in the hallway 4. Will discontinue left anterior apical chest tube 5. Pain control with current medication regimen 6. Will Hep-Lock IV 7. Pathology pending, we'll monitor 8. GI/DVT prophylaxis 9. Will monitor daily labs and x-rays 10. Bladder scan, straight cath for greater than [address] transfer orders for 4 S. 12. Discharge planning in progress, anticipate discharge to home in the next 24-48 hours 13. More recommendations to follow
--- NOTE | 2021-07-23 09:28 | P.PN ---
Subjective Progress Note Date: 07/23/21 On today's evaluation of 07/23/2021, the patient sitting up on a chair and she is calm and comfortable using incentive spirometer. He is on oxygen at 2 L per minute nasal cannula. He is having some soreness across the left chest at the site of the surgery. He did have 2 chest tubes postop. One of the chest is a been removed yesterday and the second is to be pulled out today and output is minimal at this point in time. No evidence of any pneumothorax. No evidence of any air leak. Repeat chest x-ray shows incomplete expansion of the left lung and there is some residual opacification of left lung base. Minimal amount of subcutaneous emphysema. No evidence of pneumothorax. Chest tube is in a good location. Right lung is essentially clear. Using incentive spirometer and pulling approximately 1000. He needs to get up and move and he will be encouraged to do more activities once the chest tube is removed. Urine output was overnight. Bladder scan showed diminished urine output. He was given a bolus of 1 L. He was given another 100 mL of albumin IV and would awaiting another bladder scan and hopefully some improvement in the urine output. Creatinine today is at 1.1 and the rest of the electrodes are normal. His hemoglobin dropped down to 7.21 from 10.7. No evidence of any bleeding. We are still awaiting the final pathology from the pleural biopsy. Objective - Vital Signs Vital signs: Vital Signs Temp 98.1 F 07/23/21 08:00 Pulse 111 H 07/23/21 08:00 Resp 28 H 07/23/21 08:00 BP 95/60 07/23/21 08:00 Pulse Ox 93 L 07/23/21 08:00 FiO2 40 07/22/21 08:01 Intake & Output 07/22/21 07/23/21 07/23/21 18:59 06:59 18:59 Intake Total 977.708 6128 100 Output Total 530 80 Balance -031.939 7455 100 Weight 111.1 kg Intake: IV 220 1510 100 Sodium Chloride 0.9% 1, 220 510 100 000 ml @ 50 mls/hr IV . Q20H [facility] Rx#:[id number] Sodium Chloride 0.9% 1, 1000 000 ml @ 999 mls/hr IV . Q1H1M [facility] Rx#:[id number] Intake, IV Titration 111.741 Amount Sodium Chloride 0.9% 1, 20 000 ml @ 50 mls/hr IV . Q20H [facility] Rx#:[id number] propofoL 1,000 mg In 91.741 Empty Bag 1 bag @ 5 MCG/ KG/MIN 3.204 mls/hr IV . Q24H [facility] Rx#:[id number] Oral 1000 Output: Chest Tube Drainage 80 45 Left Anterior Chest 50 45 Left Posterior Chest 30 Urine 450 35 Other: Voiding Method Indwelling Catheter Urinal Urinal # Voids 0 0 ABP, PAP, CO, CI - Last Documented Arterial Blood Pressure 93/56 - Exam - CONSTITUTIONAL: Appears comfortable, cooperative, no acute distress RESPIRATORY: Lungs sounds diminished bilaterally. Respirations even, nonlabored. Currently on 2 L nasal cannula with oxygen saturation 95%. Able to achieve 1000 mL on his incentive spirometry with lots of encouragement. Strong cough. CARDIOVASCULAR: S1, S2 present. Regular rate and rhythm, sinus rhythm on telemetry. Palpable peripheral pulses bilaterally. No edema present. No calf pain or tenderness noted. SCDs present. GASTROINTESTINAL: Abdomen soft, nontender, nondistended. Active bowel sounds present 4 quadrants. Tolerating diet. Positive flatus GENITOURINARY: Nathan discontinued yesterday, bladder scan revealed low urine amounts INTEGUMENTARY: Skin is warm and dry with evidence of good perfusion. Left- sided thoracic incision well approximated and covered with dry intact dressing. NEUROLOGIC: Cranial nerves II through XII intact MUSKULOSKELETAL: Able to move all extremities, strength equal bilaterally PSYCHIATRIC: Alert and oriented to person place and time, appropriate affect, intact judgment and insight INVASIVE LINES AND TUBES: Left anterior apical chest tube present and connected to wall suction, no air leaks present. Left anterior apical chest tube with 25 mL serosanguineous drainage overnight, 100 mL in the last 24 hours. - Labs CBC & Chem 7: 07/23/21 05:15 07/23/21 05:15 Labs: Abnormal Lab Results - Last 24 Hours (Table) 07/22/21 07/22/21 07/22/21 Range/Units 10:07 11:28 12:16 WBC (3.8-10.6) k/uL RBC (4.30-5.90) m/uL Hgb (13.0-17.5) gm/dL Hct (39.0-53.0) % MCH (25.0-35.0) pg MCHC (31.0-37.0) g/dL Plt Count (150-450) k/uL ABG pH 7.46 H (7.35-7.45) ABG HCO3 27 H (21-25) mmol/L ABG Total CO2 28 H (19-24) mmol/L ABG O2 Saturation 97.5 H (94-97) % Sodium (137-145) mmol/L BUN (9-20) mg/dL Glucose (74-99) mg/dL POC Glucose (mg/dL) 174 H 178 H (75-99) mg/dL Calcium (8.4-10.2) mg/dL 07/22/21 07/22/21 07/23/21 Range/Units 17:32 19:43 05:15 WBC 21.2 H (3.8-10.6) k/uL RBC 2.90 L (4.30-5.90) m/uL Hgb 7.2 L (13.0-17.5) gm/dL Hct 24.6 L (39.0-53.0) % MCH 24.8 L (25.0-35.0) pg MCHC 29.3 L (31.0-37.0) g/dL Plt Count 540 H (150-450) k/uL ABG pH (7.35-7.45) ABG HCO3 (21-25) mmol/L ABG Total CO2 (19-24) mmol/L ABG O2 Saturation (94-97) % Sodium (137-145) mmol/L BUN (9-20) mg/dL Glucose (74-99) mg/dL POC Glucose (mg/dL) 221 H 206 H (75-99) mg/dL Calcium (8.4-10.2) mg/dL 07/23/21 07/23/21 Range/Units 05:15 06:40 WBC (3.8-10.6) k/uL RBC (4.30-5.90) m/uL Hgb (13.0-17.5) gm/dL Hct (39.0-53.0) % MCH (25.0-35.0) pg MCHC (31.0-37.0) g/dL Plt Count (150-450) k/uL ABG pH (7.35-7.45) ABG HCO3 (21-25) mmol/L ABG Total CO2 (19-24) mmol/L ABG O2 Saturation (94-97) % Sodium 131 L (137-145) mmol/L BUN 34 H (9-20) mg/dL Glucose 133 H (74-99) mg/dL POC Glucose (mg/dL) 136 H (75-99) mg/dL Calcium 7.6 L (8.4-10.2) mg/dL Microbiology - Last 24 Hours (Table) 07/21/21 19:22 Gram Stain - Preliminary Lung - Left Tissue Culture - Preliminary 07/21/21 19:22 Fungal Culture - Preliminary Lung - Left 07/21/21 19:22 Acid Fast Bacilli Culture - Preliminary Lung - Left 07/21/21 19:22 Anaerobic Culture - Preliminary Lung - Left Assessment and Plan Plan: Left thoracotomy the left pleural and lung biopsy, partial decortication and association of 2 chest tubes. The patient is postop day #2, the patient is doing well and the patient is extubated. The patient is currently on 2 L of oxygen nasal cannula. He does have a single chest tube from yesterday that will be removed today. Acute hypoxic respiratory failure following thoracotomy/partial decortication Abnormal left pleural surface with a thick rind measuring up to 2 cm in size, post biopsy, highly suspicious for malignancy, rule out adenocarcinoma versus mesothelioma versus sarcoma Recurrent left-sided pleural effusion postthoracentesis with the fluid being exudate with a negative fluid cytology Chronic shortness of breath secondary to above Morbid obesity Hypertension Anemia which is related to anemia of chronic disease. Current hemoglobin is at 7.2. The patient is hemodynamically stable Plan Keep the patient on O2 at 2 L Monitor urine output IV fluids are currently at 40ccc/ hour and the patient was given a liter bolus in addition to IV albumin Bladder scan Renal function is stable Remove chest tubes Incentive spirometer Chest x-ray noted Awaiting final pathology from the pleural and lung biopsies Transferred to medical surgical floor
--- NOTE | 2021-07-23 10:22 | CDI ---
Documentation Clarification Form Date: 07/23/2021 10:03:33 AM From: Rosangela Leavitt CCS, CCDS Admit Date: 07/21/2021 04:10:00 PM Patient Name: Tyron Mcginnis Visit Number: [id number] Discharge Date: ATTENTION: The Clinical Documentation Specialists (CDI) and [facility] Coding Staff appreciate your assistance in clarifying documentation. Please respond to the clarification below the line at the bottom and electronically sign. The CDI & [facility] Coding staff will review the response and follow-up if needed. Please note: Queries are made part of the Legal Health Record. If you have any questions, please contact the author of this message via ITS. Dr. Gena Cisse: Acute hypoxic respiratory failure following thoracotomy/partial decortication is documented in the Pulmonary Consult on 07/22 and the subsequent Progress Note on 07/23. Additional clarification is requested regarding the relationship, if any, that exists between the diagnosis and the procedure. Patients Admitting Diagnosis per the 07/21 Procedure Note: Recurrent left side pleural effusion. Ground glass opacity/nodules left lung. Pleural thickening of left lung. Post-Operative Diagnosis: Same Procedure performed 07/21: Diagnostic Bronchoscopy, Left side PleurX Catheter. Left tube thoracotomy with biopsy left lung and partial decortication with placement of 2 chest tubes. History/Risk Factors per the 07/22 Pulmonary Consult: Recurrent Left side Pleural Effusion, Morbid Obesity (BMI 39.5, Hypertension, Anemia of Chronic Disease. Clinical Indicators: Admit for elective procedure as described above. 07/21 VS preop: T 97.8, P 130, R 20 (sob), BP 130/68, PO 95 RA 07/21 VS postop: T 99.1, P 111, R 16 (vent), BP 114/80 (left arm supine), 135/74 (left radial artery) 135/74; PO 99 (vent) 07/22 VS: T 92, P ( ), R 30, BP 129/74, PO 93 3L nc. Treatment per the 07/22 Pulmonary Consult: Mechanical vent, Propofol weaned, plan extubation. Monitor output from chest tubes. Waiting results of the left pleural biopsy with high suspicious for malignancy. Monitor Hemoglobin. Triple lumen catheter & Arterial line in place. IV Cefazolin 50 mls @ 100 mls/hr q8H, Heparin sq 5,000 units q8H, IV Na Cl 1,000 mls @ 50 mls/hr q20H, po Lasix 40 mg Daily, IV Toradol 15 mg q6H. What relationship, if any, exists between the diagnosis of Acute Hypoxic Respiratory Failure and the procedure: [ ] Acute Hypoxic Respiratory Failure is a complication of surgical procedure [x ] Acute Hypoxic Respiratory Failure is an expected outcome of the surgical procedure [ ] Acute Hypoxic Respiratory Failure is related to patients co-morbid condition(s) of, please specify: and is not a complication of the procedure [ ] Other please specify: [ ] Unable to determine (Template Last Revised: April 2020) MTDD
[2021-07-23] MEDS: ASCORBIC ACID 500 MG TAB PO SCH ×2 (10:27→16:52)
[2021-07-23] MEDS: FERROUS SULFATE 325 MG TAB PO SCH ×2 (10:27→16:52)
[2021-07-23] MEDS: SENNOSIDES-DOCUSATE SODIUM 1 EACH TAB PO SCH (10:27)
[2021-07-23 12:03] LABS: Glucose,Whole Blood 182 mg/dL (75-99)
[2021-07-23 16:36] LABS: Glucose,Whole Blood 187 mg/dL (75-99)
[2021-07-23 20:23] LABS: Glucose,Whole Blood 159 mg/dL (75-99)
--- NOTE | 2021-07-23 23:58 | XR ---
EXAMINATION TYPE: XR chest 1V portable DATE OF EXAM: 07/23/2021 COMPARISON: To the HISTORY: Hypoxemia. TECHNIQUE: FINDINGS: There is some diffuse airspace infiltrate in the entire left lower lobe. Right lung is fair ly clear. No heart failure. There is pleural thickening along the left lateral chest wall. There are skin ender on the left chest. There is minimal soft tissue air along the left lateral chest wall IMPRESSION: Extensive airspace consolidation left lower lobe not changed compared to exam this mornin g. No pneumothorax. The left chest tube was removed.
[2021-07-24] MEDS: traMADol 50 MG TAB PO SCH ×2 (00:25→05:05)
[2021-07-24] MEDS: HEPARIN SODIUM,PORCINE/PF 5,000 UNIT/0.5 ML SYRINGE SQ SCH ×2 (00:25→07:32)
[2021-07-24 06:55] LABS: Glucose,Whole Blood 144 mg/dL (75-99)
[2021-07-24 07:30] VITALS: RESP 17; TEMP 98.4
[2021-07-24] MEDS: INSULIN ASPART (NovoLOG) 100 UNIT/ML VIAL SQ SCH ×2 (07:32→11:54)
[2021-07-24] MEDS: PANTOPRAZOLE 40 MG TABLET PO SCH (07:33)
[2021-07-24] MEDS: ASCORBIC ACID 500 MG TAB PO SCH (07:33)
[2021-07-24] MEDS: FERROUS SULFATE 325 MG TAB PO SCH (07:33)
[2021-07-24] MEDS: SENNOSIDES-DOCUSATE SODIUM 1 EACH TAB PO SCH (07:33)
--- NOTE | 2021-07-24 08:28 | XR ---
EXAMINATION TYPE: XR chest 2V DATE OF EXAM: 07/24/2021 COMPARISON: 07/23/2021, 07/22/2021 INDICATION: Post thoracotomy left chest TECHNIQUE: Frontal and lateral views of the chest are obtained. FINDINGS: The heart size is mildly prominent. The pulmonary vasculature is normal. There is opacification over the lateral left chest. Since increased in thickness over the interval. P ost surgical changes are present laterally. A displaced fracture of the mid lateral rib, previously i dentified as 6, may be present.. IMPRESSION: 1. Continued thickening of the opacification lateral left chest. Correlate for hemorrhage and pleural fusion. Continued follow-up is recommended
[2021-07-24] MEDS ORDERED: traMADol 50 MG TAB PO PRN (08:51)
--- NOTE | 2021-07-24 08:56 | P.PN ---
Subjective Progress Note Date: 07/24/21 Principal diagnosis: Recurrent left-sided pleural effusion, groundglass opacity/nodules of the left lung, pleural thickening of the left lung. Previous medical history of COPD, hy pertension, left pleural effusion status post thoracentesis on 06/08/2021 and 06/24/2021 both with inconclusive pathology, never smoker POD #3 bronchoscopy, left video-assisted thoracoscopy with subsequent left thoracotomy, left pleural biopsy, left lung biopsy with partial decortication The patient was seen and examined this morning laying in bed on the medical surgical unit eating breakfast in no acute distress. States pain is mostly controlled with current medication regimen. Patient needs much encouragement to cough, deep breathe, ambulate. Objective - Vital Signs Vital signs: Vital Signs Temp 98.4 F 07/24/21 07:29 Pulse 105 H 07/24/21 07:29 Resp 17 07/24/21 07:29 BP 112/64 07/24/21 07:29 Pulse Ox 92 L 07/24/21 07:29 FiO2 40 07/22/21 08:01 Intake & Output 07/23/21 07/24/21 07/24/21 18:59 06:59 18:59 Intake Total 1192 Output Total 400 Balance 792 Intake: IV 600 Albumin Human 5% 500 ml 500 In Empty Bag 1 bag @ 500 mls/hr IVPB ONCE STA Rx#: [id number] Sodium Chloride 0.9% 1, 100 000 ml @ 50 mls/hr IV . Q20H [facility] Rx#:[id number] Oral 592 Output: Urine 400 Other: Voiding Method Urinal Urinal # Voids 1 2 ABP, PAP, CO, CI - Last Documented Arterial Blood Pressure 93/56 - Exam CONSTITUTIONAL: Appears comfortable, cooperative, no acute distress RESPIRATORY: Lungs sounds diminished bilaterally, left greater than right. Respirations even, nonlabored. Currently on 2 L nasal cannula with oxygen saturation 92%. Able to achieve 1000 mL on his incentive spirometry with lots of encouragement. Strong cough. CARDIOVASCULAR: S1, S2 present. Regular rate and rhythm. Palpable peripheral pulses bilaterally. No edema present. No calf pain or tenderness noted. SCDs present. GASTROINTESTINAL: Abdomen soft, nontender, nondistended. Active bowel sounds present 4 quadrants. Tolerating diet. Positive flatus GENITOURINARY: Continues to void INTEGUMENTARY: Skin is warm and dry with evidence of good perfusion. Left- sided thoracic incision well approximated and covered with dry intact dressing. NEUROLOGIC: Cranial nerves II through XII intact MUSKULOSKELETAL: Able to move all extremities, strength equal bilaterally PSYCHIATRIC: Alert and oriented to person place and time, appropriate affect, intact judgment and insight - Labs CBC & Chem 7: 07/23/21 05:15 07/23/21 05:15 Labs: Abnormal Lab Results - Last 24 Hours (Table) 07/23/21 07/23/21 07/23/21 Range/Units 12:02 16:34 20:22 POC Glucose (mg/dL) 182 H 187 H 159 H (75-99) mg/dL 07/24/21 Range/Units 06:54 POC Glucose (mg/dL) 144 H (75-99) mg/dL Microbiology - Last 24 Hours (Table) 07/21/21 19:22 Acid Fast Bacilli Smear - Final Lung - Left Acid Fast Bacilli Culture - Preliminary 07/21/21 19:22 Gram Stain - Preliminary Lung - Left Tissue Culture - Preliminary - Imaging and Cardiology Chest x-ray: report reviewed, image reviewed Assessment and Plan Assessment: 1. Recurrent left-sided pleural effusion, groundglass opacity/nodules of the left lung, pleural thickening of the left lung, status post bronchoscopy, left VATS with subsequent thoracotomy, pleural and lung biopsy with partial decortication 2. History of COPD 3. History of hypertension 4. History of left pleural effusion status post thoracentesis on 06/08/2021 and 06/24/2021 both with inconclusive pathology 5. Never smoker 6. Anemia of chronic disease Plan: 1. Wean O2 as tolerated, encourage incentive spirometry is 10 times every hour while awake. Bronchodilators per pulmonology 2. Increase activity as tolerated, out of bed for all meals, ambulate in the hallway 3. Pain control with current medication regimen 4. Pathology pending, will monitor 5. GI/DVT prophylaxis 6. Discharge planning in progress, anticipate discharge to home today versus tomorrow
[2021-07-24] MEDS ORDERED: lisinopriL 10 MG TAB PO SCH (09:45)
--- NOTE | 2021-07-24 10:11 | P.DS ---
Providers Date of admission: 07/21/21 16:10 Expected date of discharge: 07/24/21 Attending physician: Antonio Enciso MD Consults: 07/21/21 19:41 Consult Physician Routine Consulting Provider: Gena Cisse Consult Reason/Comments: post lung biopsy Do you want consulting provider notified?: Yes Primary care physician: Stated None Hospital Course: FINAL DIAGNOSIS: 1. Recurrent left-sided pleural effusion, groundglass opacities/nodules of the left lung, pleural thickening of the left lung 2. COPD with home as needed oxygen 3. Hypertension 4. Previous left pleural effusion status post thoracentesis on 06/08/2021 and 06/24/2021, both with inconclusive pathology 5. Never smoker PRINCIPAL PROCEDURE: 1. Bronchoscopy 2. Left video-assisted thoracoscopy with subsequent left thoracotomy 3. Left pleural biopsy, left lung biopsy with partial decortication HISTORY OF PRESENT ILLNESS: This is a 71-year-old gentleman who does not follow on an outpatient basis with a primary care physician. He was recently hospitalized with complaints of shortness of breath and underwent CT of chest demonstrating a large left pleural effusion. He underwent thoracentesis 06/08/21 for 1.2 L of straw-colored fluid, cytology at that time showed reactive mesothelial cells, macrophages, and mixed inflammatory cells. He underwent a second thoracentesis for 3.6 L on 06/24/2021 which showed cytology consistent with hypocellular but atypical cells identified. He denied any chest pain, fever, chills, or night sweats. He did endorse hot/cold frequently at night, a nd admitted to approximately 20 pound weight loss in the previous 2 months. The patient was referred to Dr. Enciso from cardiothoracic surgery. He was recommended to undergo surgical lung biopsy. The usual perioperative course was discussed in detail with the patient, all risks and benefits were explained, all questions were answered, and consent was obtained to proceed with surgery. The patient was scheduled for surgery at the earliest possible date after obtaining cardiac clearance. HOSPITAL COURSE: The patient was brought to the hospital on 07/21/21, taken to the preoperative area, prepared in the usual fashion, and subsequently taken to the operating room where Dr. Enciso performed a bronchoscopy and left VATS with subsequent left thoracotomy for completion of left pleural biopsy and left lung biopsy with partial decortication. Upon completion of surgery the patient was transferred to the intensive care unit where he was recovered and monitored hemodynamically. He was extubated, all lines, tubes, and drips were discontinued when appropriate, and he was transferred to the medical surgical unit for further monitoring and rehabilitation. His oxygen requirements continued, he continued to work with physical and occupational therapy, he was tolerating oral diet, his pain was controlled, and he was ready to be discharged to home on postoperative day #3. He received written and verbal instruction regarding his medications, activity restrictions, signs and symptoms requiring physician notification, and follow-up appointments. Patient Condition at Discharge: Stable Plan - Discharge Summary Discharge Rx Participant: Yes New Discharge Prescriptions: New Sennosides-Docusate Sodium [Senokot-S] 1 each PO DAILY tab Acetaminophen Tab [Tylenol] 650 mg PO Q4HR PRN tab PRN Reason: Fever And/ Or Pain traMADol HCl [Ultram] 50 mg PO Q6HR PRN #14 tab PRN Reason: Breakthrough Pain Continue Furosemide [Lasix] 40 mg PO DAILY #15 tab lisinopriL [Zestril] 10 mg PO DAILY #30 tab Discharge Medication List lisinopriL [Zestril] 10 mg PO DAILY #30 tab 06/10/21 [Rx] Furosemide [Lasix] 40 mg PO DAILY #15 tab 06/26/21 [Rx] Acetaminophen Tab [Tylenol] 650 mg PO Q4HR PRN tab 07/24/21 [Rx] Sennosides-Docusate Sodium [Senokot-S] 1 each PO DAILY tab 07/24/21 [Rx] traMADol HCl [Ultram] 50 mg PO Q6HR PRN #14 tab 07/24/21 [Rx] Follow up Appointment(s)/Referral(s): Joi Whittaker MD [STAFF PHYSICIAN] - 08/06/21 10:30 am Antonio Enciso MD [STAFF PHYSICIAN] - 08/03/21 2:00 pm Activity/Diet/Wound Care/Special Instructions: DISCHARGE INSTRUCTIONS: 1. No driving for 2 weeks, or until physician gives their ok. 2. No lifting, pushing, or pulling more than 10 pounds for 2 weeks. The physician will advise of any restriction changes. 3. Continue pain control per as needed orders. Alternate acetaminophen (Tylenol) and ibuprofen (Motrin/Advil) for pain. 4. Continue with incentive spirometry and splinting until otherwise directed by the physician. 5. Leave chest tube dressing for 48 hours. After that, remove all dressings and shower daily. 6. Routine incision care. No powders, lotions, ointments on incisions. 7. Please call surgeon/DIRECTOR OF PHYSIOTHERAPY SERVICES for temp greater than 101 F or purulent drainage from incisions. 8. Smoking cessation counseling and program information provided. 9. Narcotic medications were discussed with the patient, including the po tential for misuse, addiction, and abuse. Opiod Start Talking form was reviewed with the patient. Discharge Disposition: HOME SELF-CARE
[2021-07-24 11:44] LABS: Glucose,Whole Blood 181 mg/dL (75-99)
[2021-07-24 11:55] LABS: HCT 23.9 % (39.6-50.0); MCH 24.7 pg (27.0-32.0); MCHC 29.3 g/dL (32.0-37.0); MCV 84.5 fL (80.0-97.0); Mean Platelet Volume 8.3 fL (9.5-12.2); NRBC Per 100 WBC 0 /100 WBCS (0.0-0.0); Platelet Count 450 X 10*3/uL (140-440); RBC 2.83 X 10*6/uL (4.40-5.60); RDW 15.9 % (11.5-14.5); WBC 18.99 X 10*3/uL (4.50-10.00)
[2021-07-24 12:00] LABS: African American GFR (CKD) 100.6 (60.0-200.0); Anion Gap 9.1 mmol/L (10.00-18.00); BUN/Creat Ratio 30.89 Ratio (12.00-20.00); Blood Urea Nitrogen 27.8 mg/dL (9.0-27.0); Calcium 7.9 mg/dL (8.7-10.3); Carbon Dioxide 22.9 mmol/L (20.0-27.5); Non-African American GFR(CKD) 86.8 (60.0-200.0); Potassium 4.4 mmol/L (3.5-5.5)
--- NOTE | 2021-07-24 12:48 | P.PN ---
Subjective Progress Note Date: 07/24/21 On today's evaluation of 07/23/2021, the patient sitting up on a chair and she is calm and comfortable using incentive spirometer. He is on oxygen at 2 L per minute nasal cannula. He is having some soreness across the left chest at the site of the surgery. He did have 2 chest tubes postop. One of the chest is a been removed yesterday and the second is to be pulled out today and output is minimal at this point in time. No evidence of any pneumothorax. No evidence of any air leak. Repeat chest x-ray shows incomplete expansion of the left lung and there is some residual opacification of left lung base. Minimal amount of subcutaneous emphysema. No evidence of pneumothorax. Chest tube is in a good location. Right lung is essentially clear. Using incentive spirometer and pulling approximately 1000. He needs to get up and move and he will be encouraged to do more activities once the chest tube is removed. Urine output was overnight. Bladder scan showed diminished urine output. He was given a bolus of 1 L. He was given another 100 mL of albumin IV and would awaiting another bladder scan and hopefully some improvement in the urine output. Creatinine today is at 1.1 and the rest of the electrodes are normal. His hemoglobin dropped down to 7.21 from 10.7. No evidence of any bleeding. We are still awaiting the final pathology from the pleural biopsy. 07/24/2021, the patient is comfortable. The chest tube on the left was removed and there is no evidence of any pneumothorax. The preliminary biopsy of the pleural surface is indicating mesothelioma and the final diagnoses pending for now. No active pain. Using incentive spirometer. No worsening in his shortness of breath. He is ambulating. Blood work from today shows a white cell count of 18.9 with a hemoglobin of 7.0 and a platelet count of 450. Electrolytes are all within normal limits. Creatinine is at 0.9. Objective - Vital Signs Vital signs: Vital Signs Temp 98.4 F 07/24/21 07:29 Pulse 105 H 07/24/21 07:32 Resp 17 07/24/21 07:29 BP 112/64 07/24/21 07:29 Pulse Ox 92 L 07/24/21 07:29 FiO2 40 07/22/21 08:01 Intake & Output 07/23/21 07/24/21 07/24/21 18:59 06:59 18:59 Intake Total 1192 Output Total 400 200 Balance 792 -200 Intake: IV 600 Albumin Human 5% 500 ml 500 In Empty Bag 1 bag @ 500 mls/hr IVPB ONCE STA Rx#: [id number] Sodium Chloride 0.9% 1, 100 000 ml @ 50 mls/hr IV . Q20H [facility] Rx#:[id number] Oral 592 Output: Urine 400 200 Other: Voiding Method Urinal Urinal Urinal # Voids 1 2 ABP, PAP, CO, CI - Last Documented Arterial Blood Pressure 93/56 - Exam - CONSTITUTIONAL: Appears comfortable, cooperative, no acute distress RESPIRATORY: Lungs sounds diminished bilaterally. Respirations even, nonlabored. Currently on 2 L nasal cannula with oxygen saturation 95%. Able to achieve 1000 mL on his incentive spirometry with lots of encouragement. Strong cough. CARDIOVASCULAR: S1, S2 present. Regular rate and rhythm, sinus rhythm on t elemetry. Palpable peripheral pulses bilaterally. No edema present. No calf pain or tenderness noted. SCDs present. GASTROINTESTINAL: Abdomen soft, nontender, nondistended. Active bowel sounds p resent 4 quadrants. Tolerating diet. Positive flatus GENITOURINARY: Nathan discontinued yesterday, bladder scan revealed low urine amounts INTEGUMENTARY: Skin is warm and dry with evidence of good perfusion. Left- sided thoracic incision well approximated and covered with dry intact dressing. NEUROLOGIC: Cranial nerves II through XII intact MUSKULOSKELETAL: Able to move all extremities, strength equal bilaterally PSYCHIATRIC: Alert and oriented to person place and time, appropriate affect, intact judgment and insight INVASIVE LINES AND TUBES: Left anterior apical chest tube present and connected to wall suction, no air leaks present. Left anterior apical chest tube with 25 mL serosanguineous drainage overnight, 100 mL in the last 24 hours. - Labs CBC & Chem 7: 07/24/21 06:55 07/24/21 06:55 Labs: Abnormal Lab Results - Last 24 Hours (Table) 07/23/21 07/23/21 07/23/21 Range/Units 12:02 16:34 20:22 POC Glucose (mg/dL) 182 H 187 H 159 H (75-99) mg/dL 07/24/21 Range/Units 06:54 POC Glucose (mg/dL) 144 H (75-99) mg/dL Microbiology - Last 24 Hours (Table) 07/21/21 19:22 Acid Fast Bacilli Smear - Final Lung - Left Acid Fast Bacilli Culture - Preliminary 07/21/21 19:22 Gram Stain - Preliminary Lung - Left Tissue Culture - Preliminary Assessment and Plan Plan: Left thoracotomy the left pleural and lung biopsy, partial decortication and association of 2 chest tubes. The patient is postop day #3, chest tubes were removed and there is no evidence of any pneumothorax Acute hypoxic respiratory failure following thoracotomy/partial decortication, still on O2 at 2 L per minute nasal cannula Abnormal left pleural surface with a thick rind measuring up to 2 cm in size, post biopsy, highly suspicious for malignancy, rule out adenocarcinoma versus mesothelioma versus sarcoma Recurrent left-sided pleural effusion postthoracentesis with the fluid being exudate with a negative fluid cytology Chronic shortness of breath secondary to above Morbid obesity Hypertension Anemia which is related to anemia of chronic disease. Current hemoglobin is at 7.2. The patient is hemodynamically stable Plan Keep the patient on O2 at 2 L Monitor urine output Continue using incentive spirometer Chest tubes have been removed Awaiting final pathology May be able to discharge home today
[2021-07-24 14:00] VITALS: BP 107/63; PULSE 110
--- NOTE | 2021-07-29 06:36 | CDI ---
Documentation Clarification Form Date: 07/29/21 From: Luz Marina Ruiz Admit Date: 07/21/2021 04:10:00 PM Patient Name: Tyron Mcginnis Visit Number: [id number] Discharge Date: 07/24/2021 03:23:00 PM ATTENTION: The Clinical Documentation Specialists (CDI) and [facility] Coding Staff appreciate your assistance in clarifying documentation. Please respond to the clarification below the line at the bottom and electronically sign. The CDI & [facility] Coding staff will review the response and follow-up if needed. Please note: Queries are made part of the Legal Health Record. If you have any questions, please contact the author of this message via ITS. Dr. Antonio Enciso, The final diagnosis of the pathology report states "A. 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 B. 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 The immunostaining pattern in conjunction with the morphology confirms the diagnosis of mesothelioma. Coding guidelines do not allow coding professionals to code based on pathology results; therefore, clarification is requested. History/risk factors: Left pleural effusion, HTN w cardiomegaly, COPD, morbid obesity, HLD, calcified CAD, mild tricuspid insufficiency Clinical Indicators: Recurrent left sided pleural effusion, Ground glass opacity/nodules left lung, Pleural thickening of left lung Treatment: Open left thoracotomy, left pleural biopsy, left lung biopsy with partial decortication Please clarify if you agree with the pathology report diagnosis of mesothelioma of pleura and left lung [ x ] Yes [ ] No [ ] Other (please specify) [ ] Unable to determine MTDD
== END 2021-07-24 15:23 | disposition home or self-care (01) | DRG 826 ==
LOC: OR 13:57 → EDSTATUS 15:45 → 2SICU 16:10 → 4SSUR 07-23 11:39
PROVIDERS: ADMIT Thoracic Surgery (Cardiothoracic Vascular Surgery); ATTEND Thoracic Surgery (Cardiothoracic Vascular Surgery)
PROC: 0BJ08ZZ Inspection of Tracheobronchial Tree, Via Natural or Artificial Opening Endoscopic (ICD-10-PCS; principal; 2021-07-21 15:45)
PROC: 0BBP0ZX Excision of Left Pleura, Open Approach, Diagnostic (ICD-10-PCS; principal; 2021-07-21 15:45)
PROC: 0BNL0ZZ Release Left Lung, Open Approach (ICD-10-PCS; principal; 2021-07-21 15:45)
PROC: 0BB Respiratory System, Excision (ICD-10-PCS; principal; 2021-07-21 15:45)
PROC: 0BJQ4ZZ Inspection of Pleura, Percutaneous Endoscopic Approach (ICD-10-PCS; principal; 2021-07-21 15:45)
DX: C45.7 Mesothelioma of other sites (principal); J96.01 Acute respiratory failure with hypoxia; C78.2 Secondary malignant neoplasm of pleura; I11.9 Hypertensive heart disease without heart failure; J44.9 Chronic obstructive pulmonary disease, unspecified; E66.01 Morbid (severe) obesity due to excess calories; D63.0 Anemia in neoplastic disease; E78.5 Hyperlipidemia, unspecified; I25.10 Atherosclerotic heart disease of native coronary artery without angina pectoris; I25.84 Coronary atherosclerosis due to calcified coronary lesion; I07.1 Rheumatic tricuspid insufficiency; Z68.39 Body mass index [BMI] 39.0-39.9, adult; Z79.899 Other long term (current) drug therapy; Z86.69 Personal history of other diseases of the nervous system and sense organs; Z80.0 Family history of malignant neoplasm of digestive organs; Z82.49 Family history of ischemic heart disease and other diseases of the circulatory system; Z82.5 Family history of asthma and other chronic lower respiratory diseases; Z82.0 Family history of epilepsy and other diseases of the nervous system
CPT/HCPCS: 64461; 71045; 71046; 76942; 80048; 82805; 85025; 85027; 86850; 86900; 86901; 87070; 87075; 87102; 87116; 87205; 87206; 88305; 88307; 88341; 88342; 93005; 94002; 94003

== ENCOUNTER 2021-07-30 17:11 | Inpatient (IN) | payer OTHER, MEDICARE ==
--- NOTE | 2021-07-30 18:03 | ED ---
General Adult HPI - General Chief complaint: Shortness of Breath Stated complaint: revisit - FRANCIE Time Seen by Provider: 07/30/21 17:15 Source: patient, RN notes reviewed, old records reviewed Mode of arrival: wheelchair Limitations: no limitations - History of Present Illness Initial comments: This is a 71-year-old male who presents to the emergency department complaining of difficulty breathing. Patient states it started on Monday and has gotten progressively worse. Patient states about 10 days ago he had a thoracentesis with a biopsy of his lung to see if he did cancer. Patient states he has yet to get the results. Patient states after that he felt pretty good and then on Monday started having difficulty breathing with exertion and has gotten considerably worse and now even at rest he short of breath per patient denies any chest pain patient denies any fever chills or cough per patient denies abdominal pain patient denies nausea vomiting diarrhea per patient denies headache patient denies numbness weakness. Patient denies any history of anemia. Patient denies any history of previous CHF or COPD. - Related Data Previous Rx's Medication Instructions Recorded Acetaminophen Tab [Tylenol] 650 mg PO Q4HR PRN tab 07/24/21 traMADol HCl [Ultram] 50 mg PO Q6HR PRN #14 tab 07/24/21 Allergies Allergy/AdvReac Type Severity Reaction Status Date / Time No Known Allergies Allergy Verified 07/30/21 18:34 Review of Systems ROS Statement: Those systems with pertinent positive or pertinent negative responses have been documented in the HPI. ROS Other: All systems not noted in ROS Statement are negative. Past Medical History Past Medical History: COPD, Hypertension Additional Past Medical History / Comment(s): Hx Woosd's palsy. Had left pleural effusion on 06/08/21, s/p left thoracentesis status post, sinus tachycardia - seen for cardiac clearance by Dr Carlson. Occ shortness of breath, has O2 @ 2L, using prn. History of Any Multi-Drug Resistant Organisms: None Reported Past Surgical History: No Surgical Hx Reported Past Anesthesia/Blood Transfusion Reactions: Unable to Obtain Additional Past Anesthesia/Blood Transfusion Reaction / Comment(s): Pt has never had surgery Past Psychological History: No Psychological Hx Reported Smoking Status: Never smoker - Past Family History Mother Family Medical History: Cancer Additional Family Medical History / Comment(s): Mother of pancreatic cancer at the age of 61 yrs. Father Family Medical History: COPD, Hypertension Additional Family Medical History / Comment(s): Father is 90 yrs old. Brother(s) Family Medical History: Hypertension Additional Family Medical History / Comment(s): epilepsy General Exam - General Exam Comments Initial Comments: GENERAL: Patient is well-developed and well-nourished. Patient is nontoxic and well-hydrated and is in moderate distress. ENT: Neck is soft and supple. No significant lymphadenopathy is noted. Oropharynx is clear. Moist mucous membranes. Neck has full range of motion without eliciting any pain. EYES: The sclera were anicteric and conjunctiva were pink and moist. Extraocular movements were intact and pupils were equal round and reactive to light. Eyelids were unremarkable. PULMONARY: Unlabored respirations. Good breath sounds bilaterally. Diminished breath sounds in the left base CARDIOVASCULAR: There is a regular rate and rhythm without any murmurs gallops or rubs. ABDOMEN: Soft and nontender with normal bowel sounds. No palpable organomegaly was noted. There is no palpable pulsatile mass. SKIN: Skin is clear with no lesions or rashes and otherwise unremarkable. NEUROLOGIC: Patient is alert and oriented x3. Cranial nerves II through XII are grossly intact. Motor and sensory are also intact. Normal speech, volume and content. Symmetrical smile. MUSCULOSKELETAL: Normal extremities with adequate strength and full range of motion. 1+ edema LYMPHATICS: No significant lymphadenopathy is noted PSYCHIATRIC: Normal psychiatric evaluation. Limitations: no limitations Course Vital Signs 07/30/21 07/30/21 07/30/21 17:12 18:16 18:35 Temperature 97.6 F Pulse Rate 124 H 115 H Respiratory 24 24 18 Rate Blood Pressure 125/80 115/78 O2 Sat by Pulse 96 95 Oximetry Medical Decision Making - Medical Decision Making EKG shows sinus tachycardia with frequent PACs at 125 bpm IN interval 229 QRS is 90 QT interval 05/16/1969 QTC is 411. Patient's EKG shows no ST segment elevation or depression. Computed tomography scan shows pleural effusion necrotic mass versus necrotizing pneumonia I spoke with Dr. Araya to admit the patient admitted the patient I consulted oncology and pulmonary I will start antibiotics prophylactically - Lab Data Result diagrams: 07/30/21 18:00 07/30/21 18:00 Lab Results 07/30/21 07/30/21 07/30/21 Range/Units 18:00 18:00 18:00 WBC 18.7 H (3.8-10.6) k/uL RBC 3.37 L (4.30-5.90) m/uL Hgb 8.1 L (13.0-17.5) gm/dL Hct 27.6 L (39.0-53.0) % MCV 81.9 (80.0-100.0) fL MCH 24.1 L (25.0-35.0) pg MCHC 29.4 L (31.0-37.0) g/dL RDW 16.4 H (11.5-15.5) % Plt Count 606 H (150-450) k/uL MPV 6.3 Neutrophils % 86 % Lymphocytes % 7 % Monocytes % 5 % Eosinophils % 1 % Basophils % 1 % Neutrophils # 16.0 H (1.3-7.7) k/uL Lymphocytes # 1.4 (1.0-4.8) k/uL Monocytes # 1.0 (0-1.0) k/uL Eosinophils # 0.1 (0-0.7) k/uL Basophils # 0.1 (0-0.2) k/uL Hypochromasia Moderate Anisocytosis Slight PT 11.4 (9.0-12.0) sec INR 1.1 (<1.2) APTT 25.0 (22.0-30.0) sec D-Dimer 4.25 H (<0.60) mg/L FEU Sodium 135 L (137-145) mmol/L Potassium 3.7 (3.5-5.1) mmol/L Chloride 102 (98-107) mmol/L Carbon Dioxide 28 (22-30) mmol/L Anion Gap 5 mmol/L BUN 18 (9-20) mg/dL Creatinine 0.90 (0.66-1.25) mg/dL Est GFR (CKD-EPI)AfAm >90 (>60 ml/min/1.73 sqM) Est GFR (CKD-EPI)NonAf 87 (>60 ml/min/1.73 sqM) Glucose 178 H (74-99) mg/dL Lactic Ac Sepsis Rflx Plasma Lactic Acid Terry (0.7-2.0) mmol/L Calcium 7.5 L (8.4-10.2) mg/dL Magnesium 1.9 (1.6-2.3) mg/dL Total Bilirubin 0.3 (0.2-1.3) mg/dL AST 60 H (17-59) U/L ALT 34 (4-49) U/L Alkaline Phosphatase 95 (38-126) U/L Troponin I (0.000-0.034) ng/mL NT-Pro-B Natriuret Pep pg/mL Total Protein 5.6 L (6.3-8.2) g/dL Albumin 2.5 L (3.5-5.0) g/dL 07/30/21 07/30/21 07/30/21 Range/Units 18:00 18:00 18:00 WBC (3.8-10.6) k/uL RBC (4.30-5.90) m/uL Hgb (13.0-17.5) gm/dL Hct (39.0-53.0) % MCV (80.0-100.0) fL MCH (25.0-35.0) pg MCHC (31.0-37.0) g/dL RDW (11.5-15.5) % Plt Count (150-450) k/uL MPV Neutrophils % % Lymphocytes % % Monocytes % % Eosinophils % % Basophils % % Neutrophils # (1.3-7.7) k/uL Lymphocytes # (1.0-4.8) k/uL Monocytes # (0-1.0) k/uL Eosinophils # (0-0.7) k/uL Basophils # (0-0.2) k/uL Hypochromasia Anisocytosis PT (9.0-12.0) sec INR (<1.2) APTT (22.0-30.0) sec D-Dimer (<0.60) mg/L FEU Sodium (137-145) mmol/L Potassium (3.5-5.1) mmol/L Chloride (98-107) mmol/L Carbon Dioxide (22-30) mmol/L Anion Gap mmol/L BUN (9-20) mg/dL Creatinine (0.66-1.25) mg/dL Est GFR (CKD-EPI)AfAm (>60 ml/min/1.73 sqM) Est GFR (CKD-EPI)NonAf (>60 ml/min/1.73 sqM) Glucose (74-99) mg/dL Lactic Ac Sepsis Rflx Plasma Lactic Acid Terry 2.2 H* (0.7-2.0) mmol/L Calcium (8.4-10.2) mg/dL Magnesium (1.6-2.3) mg/dL Total Bilirubin (0.2-1.3) mg/dL AST (17-59) U/L ALT (4-49) U/L Alkaline Phosphatase (38-126) U/L Troponin I <0.012 (0.000-0.034) ng/mL NT-Pro-B Natriuret Pep 1500 pg/mL Total Protein (6.3-8.2) g/dL Albumin (3.5-5.0) g/dL 07/30/21 Range/Units 18:28 WBC (3.8-10.6) k/uL RBC (4.30-5.90) m/uL Hgb (13.0-17.5) gm/dL Hct (39.0-53.0) % MCV (80.0-100.0) fL MCH (25.0-35.0) pg MCHC (31.0-37.0) g/dL RDW (11.5-15.5) % Plt Count (150-450) k/uL MPV Neutrophils % % Lymphocytes % % Monocytes % % Eosinophils % % Basophils % % Neutrophils # (1.3-7.7) k/uL Lymphocytes # (1.0-4.8) k/uL Monocytes # (0-1.0) k/uL Eosinophils # (0-0.7) k/uL Basophils # (0-0.2) k/uL Hypochromasia Anisocytosis PT (9.0-12.0) sec INR (<1.2) APTT (22.0-30.0) sec D-Dimer (<0.60) mg/L FEU Sodium (137-145) mmol/L Potassium (3.5-5.1) mmol/L Chloride (98-107) mmol/L Carbon Dioxide (22-30) mmol/L Anion Gap mmol/L BUN (9-20) mg/dL Creatinine (0.66-1.25) mg/dL Est GFR (CKD-EPI)AfAm (>60 ml/min/1.73 sqM) Est GFR (CKD-EPI)NonAf (>60 ml/min/1.73 sqM) Glucose (74-99) mg/dL Lactic Ac Sepsis Rflx Y Plasma Lactic Acid Terry (0.7-2.0) mmol/L Calcium (8.4-10.2) mg/dL Magnesium (1.6-2.3) mg/dL Total Bilirubin (0.2-1.3) mg/dL AST (17-59) U/L ALT (4-49) U/L Alkaline Phosphatase (38-126) U/L Troponin I (0.000-0.034) ng/mL NT-Pro-B Natriuret Pep pg/mL Total Protein (6.3-8.2) g/dL Albumin (3.5-5.0) g/dL Disposition Clinical Impression: History of lung cancer, Pleural effusion, Dyspnea Disposition: ADMITTED IP TO THIS HOSP Referrals: None,Stated [Primary Care Provider] - 1-2 days Time of Disposition: 19:48
[2021-07-30 18:17] LABS: Anisocytosis Slight; Basophils # (A) 0.1 k/uL (0-0.2); Basophils % (A) 1 %; Eosinophils # (A) 0.1 k/uL (0-0.7); Eosinophils % (A) 1 %; HCT 27.6 % (39.0-53.0); HGB 8.1 gm/dL (13.0-17.5); Hypochromasia Moderate; Lymphocytes # (A) 1.4 k/uL (1.0-4.8); Lymphocytes % (A) 7 %; MCH 24.1 pg (25.0-35.0); MCHC 29.4 g/dL (31.0-37.0); MCV 81.9 fL (80.0-100.0); Mean Platelet Volume 6.3; Monocytes % (A) 5 %; Neutrophils % (A) 86 %; Platelet Count 606 k/uL (150-450); RBC 3.37 m/uL (4.30-5.90); RDW 16.4 % (11.5-15.5); WBC 18.7 k/uL (3.8-10.6)
[2021-07-30 18:28] LABS: ALT 34 U/L (4-49); AST 60 U/L (17-59); African American GFR (CKD) >90 (>60 ml/min/1.73 sqM); Albumin 2.5 g/dL (3.5-5.0); Alkaline Phosphatase 95 U/L (38-126); Anion Gap 5 mmol/L; Blood Urea Nitrogen 18 mg/dL (9-20); Calcium 7.5 mg/dL (8.4-10.2); Carbon Dioxide 28 mmol/L (22-30); Chloride 102 mmol/L (98-107); Glucose 178 mg/dL (74-99); Magnesium 1.9 mg/dL (1.6-2.3); Non-African American GFR(CKD) 87 (>60 ml/min/1.73 sqM); Potassium 3.7 mmol/L (3.5-5.1); Sodium 135 mmol/L (137-145); Total Bilirubin 0.3 mg/dL (0.2-1.3); Total Protein 5.6 g/dL (6.3-8.2)
[2021-07-30 18:31] LABS: INR 1.1 (<1.2); Prothrombin Time 11.4 sec (9.0-12.0)
--- NOTE | 2021-07-30 18:39 | XR ---
EXAMINATION TYPE: XR chest 2V DATE OF EXAM: 07/30/2021 6:12 PM COMPARISON: Multiple radiographs, with the most recent on 07/16/2021 TECHNIQUE: XR chest 2V Frontal and lateral views of the chest. CLINICAL INDICATION:Male, 71 years old with history of difficulty breathing; FINDINGS: Lungs/Pleura: Increased left hemithorax opacification when compared to prior. No evidence of pneumoth orax. There is at least moderate left pleural effusion with associated atelectasis. Pulmonary vascularity: Unremarkable. Heart/mediastinum: Cardiomediastinal silhouette is partially obscured due to overlying and adjacent o pacities. Musculoskeletal: No acute osseous pathology. IMPRESSION: Worsening opacification of the left hemithorax which could be due to acute atelectasis, airspace dise ase and/or enlarging pleural effusion.
[2021-07-30] MEDS ORDERED: methylPREDNISolone SOD SUCCI 125 MG/2 ML VIAL IV STA (19:59)
[2021-07-30] MEDS ORDERED: IPRATROPIUM-ALBUTEROL 3 ML NEB INHALATION STA (19:59)
--- NOTE | 2021-07-30 20:19 | CT ---
EXAMINATION TYPE: CT chest angio for PE CT DLP: 790.7 mGycm, Automated exposure control for dose reduction was used. DATE OF EXAM: 07/30/2021 7:43 PM COMPARISON: Chest radiograph from same day. Multiple CTs of the chest with most recent on 06/08/2021, 06/16/2021. CLINICAL INDICATION:Male, 71 years old with history of Elevated d-dimer, difficulty breathing; SOB el evated D-DIMER TECHNIQUE/CONTRAST: CTA scan of the thorax is performed with IV Contrast, patient injected with 100 mL of Isovue 370, pul monary embolism protocol. MIP images are created and reviewed. FINDINGS: Pulmonary Artery: There is no evidence for a central filling defect within the pulmonary vasculature to suggest acute pulmonary embolism. Limited evaluation of the segmental and subsegmental branches se condary to bolus timing. The pulmonary artery is of normal size. Lungs/Pleura: Interval enlargement compared to 06/24/2021 lobulated left pleural thickening and left p leural effusion. Pleural effusion demonstrates few foci of gas. There is new is intralobular septal t hickening on the left lung. A new Cavitary lesion is seen within the left lung with thick capsule selina suring 3.8 x 3.1 cm. Additional foci of gas is seen within the expected location the pleural space. Airway: Large airways are patent. Heart: Mildly enlarged for size. Pulmonary trunk is enlarged for size. Vasculature: No evidence of aortic aneurysm. Mediastinum: Multiple enlarged lymph nodes which have increased in size compared to prior. Example in cludes AP window 12 mm in short axis, previously 8 mm. Left internal mammary lymph node measuring up to 6 cm in short axis is also increase in size from prior. Musculoskeletal: Acute rib fracture likely from recent surgical intervention. Soft Tissues: The left chest wall soft tissues near the axilla demonstrates ill-defined soft tissue w hich is new from prior measuring 8.4 x 2.8 cm . There is at least one broken ribs also present. Lower neck: No significant findings. Upper Abdomen: No significant findings. IMPRESSION: 1. No evidence of central pulmonary embolism. Limited evaluation of the segmental and subsegmental br anches. 2. Interval worsening of left-sided pleural effusion with worsening lobulated pleural thickening of t he left pleural space. There is new intralobular septal thickening suggestive of new pulmonary edema. Correlate with recent biopsy results and clinical picture for infection versus malignancy. 3. New cavitary lesions seen from 06/24/2021 and the left lung which could represent necrotizing pneum onia versus necrotic mass which is felt to be less likely given the short interval. 4. Increasing mediastinal lymphadenopathy along with left internal mammary lymph node could be reacti ve versus secondary to metastatic lymphadenopathy. 5. Post VATS changes of the left soft tissues with soft tissue now within the left lateral sidewall. 6. Findings suggestive of pulmonary vascular hypertension.
[2021-07-31] MEDS: traMADol 50 MG TAB PO PRN ×2 (00:24→20:44)
[2021-07-31] MEDS: HEPARIN SODIUM,PORCINE/PF 5,000 UNIT/0.5 ML SYRINGE SQ SCH ×2 (08:09→20:44)
[2021-07-31] MEDS: FAMOTIDINE 20 MG/2 ML VIAL IV SCH ×2 (08:09→20:44)
--- NOTE | 2021-07-31 09:07 | P.HPIM ---
History of Present Illness This is a pleasant 71 years old male with past medical history of COPD, Hypertension. Had left pleural effusion on 06/08/21, s/p left thoracentesis, has O2 @ 2L, using prn. Presents with worsening dyspnea over the last few days. Patient told me since June 08 is starts having dyspnea and since then is getting progressively worse. Occasional dry cough, no chest pain, no diarrhea or vomiting. No dizziness. Last week he had Left thoracotomy the left pleural and lung biopsy, there is surgical wound with ender, it looks clean and closed, there is 2 puncture wounds healing with no evidence of infection. No urinary complaints. Patient has memory problems and could not remember all the details. However he says that he having been started chemotherapy and he thinks he is going to see a doctor whom he believes his oncologist. On admission patient is tachypneic and tachycardic, blood pressure is 117/79 CBC showing leukocytosis of 18.7 K, it was 18.9 last month. INR is 1.1. D-dimer elevated 4.2. BMP is unremarkable. Liver enzymes not elevated. ProBNP is 1500 and troponin negative less than 0.02. EKG showing sinus tachycardia with PVCs rate of 125. No significant ST-T changes CTA of the chest: No pulmonary embolism. Worsening left pleural effusion. New cavitary lesion of the left lung which could represent necrotizing pneumonia versus necrotic mass. Mediastinal lymphadenopathy (Due to EHR system error, the report for pathology lung biopsy from 07/22 did not open for me) we will try some other type Review of Systems CONSTITUTIONAL: No fever, no malaise, no fatigue. HEENT: No recent visual problems or hearing problems. Denied any sore throat. CARDIOVASCULAR: No orthopnea, PND, no palpitations, no syncope. PULMONARY: No chest pain tenderness, no hemoptysis. GASTROINTESTINAL: No diarrhea, no nausea, no vomiting, no abdominal pain. Normoactive bowel sounds. NEUROLOGICAL: No headaches, no weakness, no numbness. HEMATOLOGICAL: Denies any bleeding or petechiae. GENITOURINARY: Denies any burning micturition, frequency, or urgency. MUSCULOSKELETAL/RHEUMATOLOGICAL: Denies any joint pain, swelling, or any muscle pain. ENDOCRINE: Denies any polyuria or polydipsia. Past Medical History Past Medical History: COPD, Hypertension Additional Past Medical History / Comment(s): Hx Woods's palsy. Had left pleural effusion on 06/08/21, s/p left thoracentesis status post, sinus tachycardia - seen for cardiac clearance by Dr Carlson. Occ shortness of breath, has O2 @ 2L, using prn. History of Any Multi-Drug Resistant Organisms: None Reported Past Surgical History: No Surgical Hx Reported Additional Past Surgical History / Comment(s): thoracentesis Past Anesthesia/Blood Transfusion Reactions: No Reported Reaction Additional Past Anesthesia/Blood Transfusion Reaction / Comment(s): . Past Psychological History: No Psychological Hx Reported Additional Psychological History / Comment(s): . Smoking Status: Never smoker Past Alcohol Use History: None Reported Past Drug Use History: None Reported - Past Family History Mother Family Medical History: Cancer Additional Family Medical History / Comment(s): Mother of pancreatic cancer at the age of 61 yrs. Father Family Medical History: COPD, Hypertension Additional Family Medical History / Comment(s): Father is 90 yrs old. Brother(s) Family Medical History: Hypertension Additional Family Medical History / Comment(s): epilepsy Medications and Allergies Home Medications Medication Instructions Recorded Confirmed Type Acetaminophen Tab [Tylenol] 650 mg PO Q4HR PRN tab 07/24/21 07/30/21 Rx traMADol HCl [Ultram] 50 mg PO Q6HR PRN #14 tab 07/24/21 07/30/21 Rx Allergies Allergy/AdvReac Type Severity Reaction Status Date / Time No Known Allergies Allergy Verified 07/30/21 18:34 Physical Exam Vitals: Vital Signs Temp Pulse Pulse Resp BP BP Pulse Ox 07/31/21 03:29 98.1 F 106 H 24 117/79 94 L 07/31/21 00:01 22 94 L 07/30/21 23:31 103 H 24 134/84 94 L 07/30/21 21:28 97.8 F 102 H 18 140/80 96 07/30/21 18:35 115 H 18 115/78 95 07/30/21 18:16 24 07/30/21 17:12 97.6 F 124 H 24 125/80 96 Intake and Output 07/30/21 07/30/21 07/31/21 14:59 22:59 06:59 Output Total 300 Balance -300 Output: Urine 300 Other: Weight 72.575 kg 72.575 kg GENERAL: The patient is alert and oriented x3, not in any acute distress. Well developed, well nourished. HEENT: Pupils are round and equally reacting to light. EOMI. No scleral icterus. No conjunctival pallor. Normocephalic, atraumatic. No pharyngeal erythema. No thyromegaly. CARDIOVASCULAR: S1 and S2 present. No murmurs, rubs, or gallops. -PULMONARY: Chest is clear to auscultation, no wheezing or crackles. Decreased breath sounds on the left side ABDOMEN: Soft, nontender, nondistended, normoactive bowel sounds. No palpable organomegaly. MUSCULOSKELETAL: No joint swelling or deformity. EXTREMITIES: No cyanosis, clubbing, or pedal edema. NEUROLOGICAL: Gross neurological examination did not reveal any focal deficits. SKIN: No rashes. No petechiae Results CBC & Chem 7: 07/30/21 18:00 07/30/21 18:00 Labs: Abnormal Lab Results - Last 24 Hours (Table) 07/30/21 07/30/21 07/30/21 Range/Units 18:00 18:00 18:00 WBC 18.7 H (3.8-10.6) k/uL RBC 3.37 L (4.30-5.90) m/uL Hgb 8.1 L (13.0-17.5) gm/dL Hct 27.6 L (39.0-53.0) % MCH 24.1 L (25.0-35.0) pg MCHC 29.4 L (31.0-37.0) g/dL RDW 16.4 H (11.5-15.5) % Plt Count 606 H (150-450) k/uL Neutrophils # 16.0 H (1.3-7.7) k/uL D-Dimer 4.25 H (<0.60) mg/L FEU Sodium 135 L (137-145) mmol/L Glucose 178 H (74-99) mg/dL Plasma Lactic Acid Terry (0.7-2.0) mmol/L Calcium 7.5 L (8.4-10.2) mg/dL AST 60 H (17-59) U/L Total Protein 5.6 L (6.3-8.2) g/dL Albumin 2.5 L (3.5-5.0) g/dL 07/30/21 Range/Units 18:00 WBC (3.8-10.6) k/uL RBC (4.30-5.90) m/uL Hgb (13.0-17.5) gm/dL Hct (39.0-53.0) % MCH (25.0-35.0) pg MCHC (31.0-37.0) g/dL RDW (11.5-15.5) % Plt Count (150-450) k/uL Neutrophils # (1.3-7.7) k/uL D-Dimer (<0.60) mg/L FEU Sodium (137-145) mmol/L Glucose (74-99) mg/dL Plasma Lactic Acid Terry 2.2 H* (0.7-2.0) mmol/L Calcium (8.4-10.2) mg/dL AST (17-59) U/L Total Protein (6.3-8.2) g/dL Albumin (3.5-5.0) g/dL Thrombosis Risk Factor Assmnt - Choose All That Apply Any of the Below Risk Factors Present?: Yes Each Factor Represents 1 point: Abnormal pulmonary function (COPD), Obesity (BMI >25) Other Risk Factors: Yes Each Risk Factor Represents 2 Points: Age 61-74 years, Malignancy Other congenital or acquired thrombophilia - If yes, enter type in comment: No Thrombosis Risk Factor Assessment Total Risk Factor Score: 6 Thrombosis Risk Factor Assessment Level: High Risk Assessment and Plan Assessment: Recurrent and worsening left pleural effusion Left lung Cavitary lesion, necrotizing pneumonia versus metastasis is suspected (less likely) Elevated d-dimer, with negative PE on CTA of the chest lung cancer is suspected chronic leukocytosis Chronic hypoxic respiratory failure Plan: This is a pleasant 71 is a male who presents with pleural effusion with history of lung cancer suspected, with cavitary lesions and the ventricular cavity. Patient will need thoracocentesis, pulmonary team were consulted. Oncology team consult Check ultrasound of the legs. Check ultrasound of the lung Labs and medication were reviewed.. Continue same treatment. Continue with symptomatic treatment. Resume home medication. Monitor lytes and vitals. DVT and GI prophylaxis. Further recommendations depends on the clinical course of the patient DVT prophylaxis: Subcutaneous heparin GI Prophylaxis: Pepcid PT/OT: Pending Prognosis is guarded
--- NOTE | 2021-07-31 10:02 | US ---
EXAMINATION TYPE: US chest DATE OF EXAM: 07/31/2021 COMPARISON: chest CT and xrays CLINICAL HISTORY: pl eff. TECHNIQUE: Targeted ultrasound of the posterior lower bilateral hemithoraces EXAM MEASUREMENTS: Right Pleural Effusion pocket size: no fluid noted Left Pleural Effusion pocket size: 6.3 cm Left skin surface to fluid distance: 3.4 cm Left side marked for possible thoracentesis outside the dept. Pulmonologists are able to review the images in the patient?s EMR. IMPRESSIONS: Successful left chest marking for pleural effusion as described above.
--- NOTE | 2021-07-31 10:03 | US ---
EXAMINATION TYPE: US venous doppler duplex LE DATE OF EXAM: 07/31/2021 9:55 AM COMPARISON: NONE CLINICAL HISTORY: leg swelling. SIDE PERFORMED: Bilateral TECHNIQUE: The lower extremity deep venous system is examined utilizing real time linear array sonog yair with graded compression, doppler sonography and color-flow sonography. VESSELS IMAGED: Common Femoral Vein Deep Femoral Vein Greater Saphenous Vein * Femoral Vein Popliteal Vein Small Saphenous Vein * Proximal Calf Veins (* superficial vessels) Grayscale, color doppler, spectral doppler imaging performed of the deep veins of the lower extremiti es. There is normal flow, compressibility, vascular waveforms. Right Leg: Negative for DVT Left Leg: Negative for DVT IMPRESSION: No evidence of deep vein thrombosis of either lower extremity.
--- NOTE | 2021-07-31 12:27 | P.CNPUL ---
History of Present Illness Consult date: 07/31/21 Requesting physician: Osmani Blanchard Reason for consult: dyspnea, abnormal CXR/CT Chief complaint: Shortness of breath History of present illness: This is a pleasant 71-year-old male patient with a known history of hypertension, obesity, chronic anemia, recurrent left-sided pleural effusion with previous thoracocentesis. He had subsequently undergone a left thoracotomy on 07/21/2021 with left pleural and lung biopsy now found to be positive for mesothelioma. He was discharged on 07/24/2021. He presented to the emergency room yesterday with worsening shortness of breath. Chest x-ray revealed worsening opacification of the left hemithorax due to acute atelectasis/airspace disease and enlarging pleural effusion. CT angiogram ruled out pulmonary embolism. There was interval worsening left-sided pleural effusion with worsening lobulated pleural thickening of the left pleural space. There is new intralobular septal thickening suggestive of new pulmonary edema. New cavitary lesions could represent necrotizing pneumonia versus necrotic mass. Increasing mediastinal lymphadenopathy along with left internal mammary lymph node most likely secondary to metastatic lymphadenopathy. Ultrasound of the left chest revealed a pocket size of 6.3 cm. Dopplers of the lower extremity were negative for DVT. White count 18.7. Hemoglobin 8.1. Platelets 606. D-dimer 4.25. Sodium 135. Potassium 3.7. BUN 18. Creatinine 0.9. Glucose 178. AST 60. ALT 34. Her BNP 1500. He's been initiated on DuoNeb inhalations. Heparin for DVT prophylaxis. He is seen today in consultation on the selective care unit. He is currently sitting up in bed. Awake and alert in no acute distress. He is maintaining O2 saturations in the mid 90s on 3 L/m per nasal cannula. He has been informed of his diagnosis of mesothelioma. Oncology consult pending. Review of Systems REVIEW OF SYSTEMS: CONSTITUTIONAL: Denies any recent significant weight loss or weight gain. EYES: Denies change in vision. EARS, NOSE, MOUTH, THROAT: Denies headaches, denies sore throat. CARDIOVASCULAR: Denies chest pain, palpitations or syncopal episodes. RESPIRATORY: Positive for shortness of breath, cough, congestion no hemoptysis. GASTROINTESTINAL: Denies change in appetite, denies abdominal pain GENITOURINARY: Denies hematuria, denies infections. MUSKULOSKELETAL: Denies pain, denies swelling. INTEGUMENTARY: Denies rash, denies eczema. NEUROLOGICAL: Denies recent memory loss, no recent seizure activity. PSYCHIATRIC: Denies anxiety, denies depression. HEMATOLOGIC/LYMPHATIC: Denies anemia, denies enlarged lymph nodes. Past Medical History Past Medical History: COPD, Hypertension Additional Past Medical History / Comment(s): Hx Woods's palsy. Had left pleural effusion on 06/08/21, s/p left thoracentesis status post, sinus tachycardia - seen for cardiac clearance by Dr Carlson. Occ shortness of breath, has O2 @ 2L, using prn. History of Any Multi-Drug Resistant Organisms: None Reported Past Surgical History: No Surgical Hx Reported Additional Past Surgical History / Comment(s): thoracentesis Past Anesthesia/Blood Transfusion Reactions: No Reported Reaction Additional Past Anesthesia/Blood Transfusion Reaction / Comment(s): . Past Psychological History: No Psychological Hx Reported Additional Psychological History / Comment(s): . Smoking Status: Never smoker Past Alcohol Use History: None Reported Past Drug Use History: None Reported - Past Family History Mother Family Medical History: Cancer Additional Family Medical History / Comment(s): Mother of pancreatic cancer at the age of 61 yrs. Father Family Medical History: COPD, Hypertension Additional Family Medical History / Comment(s): Father is 90 yrs old. Brother(s) Family Medical History: Hypertension Additional Family Medical History / Comment(s): epilepsy Medications and Allergies Home Medications Medication Instructions Recorded Confirmed Type Acetaminophen Tab [Tylenol] 650 mg PO Q4HR PRN tab 07/24/21 07/30/21 Rx traMADol HCl [Ultram] 50 mg PO Q6HR PRN #14 tab 07/24/21 07/30/21 Rx Allergies Allergy/AdvReac Type Severity Reaction Status Date / Time No Known Allergies Allergy Verified 07/30/21 18:34 Physical Exam Vitals: Vital Signs Temp Pulse Pulse Resp BP BP Pulse Ox 07/31/21 11:59 107 H 97 07/31/21 11:00 109 H 24 136/76 95 07/31/21 08:07 97.9 F 101 H 28 H 121/61 95 07/31/21 03:29 98.1 F 106 H 24 117/79 94 L 07/31/21 00:01 22 94 L 07/30/21 23:31 103 H 24 134/84 94 L 07/30/21 21:28 97.8 F 102 H 18 140/80 96 07/30/21 18:35 115 H 18 115/78 95 07/30/21 18:16 24 07/30/21 17:12 97.6 F 124 H 24 125/80 96 Intake and Output 07/30/21 07/31/21 07/31/21 22:59 06:59 14:59 Output Total 300 300 Balance -300 -300 Output: Urine 300 300 Other: Voiding Method Urinal Weight 72.575 kg 72.575 kg GENERAL EXAM: Alert, pleasant 71-year-old male patient, on 3 L nasal cannula, fairly comfortable in no apparent distress. HEAD: Normocephalic. EYES: Normal reaction of pupils, equal size. NOSE: Clear with pink turbinates. THROAT: No erythema or exudates. NECK: No masses, no JVD. CHEST: No chest wall deformity. LUNGS: Equal air entry with crackles in the left lung base, diminished. CVS: S1 and S2 normal with no audible murmur, regular rhythm. ABDOMEN: No hepatosplenomegaly, normal bowel sounds, no guarding or rigidity. SPINE: No scoliosis or deformity SKIN: No rashes CENTRAL NERVOUS SYSTEM: No focal deficits, tone is normal in all 4 extremities. EXTREMITIES: There is no peripheral edema. No clubbing, no cyanosis. Peripheral pulses are intact. Results - Laboratory Findings CBC and BMP: 07/30/21 18:00 07/30/21 18:00 PT/INR, D-dimer PT 11.4 sec (9.0-12.0) 07/30/21 18:00 INR 1.1 (<1.2) 07/30/21 18:00 D-Dimer 4.25 mg/L FEU (<0.60) H 07/30/21 18:00 Abnormal lab findings: Abnormal Labs 07/30/21 07/30/21 07/30/21 18:00 18:00 18:00 WBC 18.7 H RBC 3.37 L Hgb 8.1 L Hct 27.6 L MCH 24.1 L MCHC 29.4 L RDW 16.4 H Plt Count 606 H Neutrophils # 16.0 H D-Dimer 4.25 H Sodium 135 L Glucose 178 H Plasma Lactic Acid Terry Calcium 7.5 L AST 60 H Total Protein 5.6 L Albumin 2.5 L 07/30/21 18:00 WBC RBC Hgb Hct MCH MCHC RDW Plt Count Neutrophils # D-Dimer Sodium Glucose Plasma Lactic Acid Terry 2.2 H* Calcium AST Total Protein Albumin - Diagnostic Findings Chest x-ray: image reviewed CT scan - chest: image reviewed Assessment and Plan Assessment: 1 Acute hypoxemic respiratory failure secondary to increasing left sided recurrent pleural effusion and atelectasis secondary to mesothelioma the left lung and pleural rind diagnosed by wedge biopsy on 07/21/2021 2 Leukocytosis secondary to suspected postobstructive pneumonia 3 Recurrent left-sided pleural effusion secondary to above 4 Obesity 5 Hypertension 6 Chronic anemia, current hemoglobin 8.1 Plan: The patient was seen and evaluated Chest x-ray, CAT scan and labs reviewed We will add Zosyn for now Check a pro-calcitonin Patient aware of his diagnosis of mesothelioma Denies any knowledge of asbestos exposure Oncology consult pending Titrate the FiO2 as tolerated We will continue to follow and make further recommendations based on his clinical status I have personally seen and examined the patient, performed the documentation and the assessment and plan as written. Number of minutes spent on the visit: 20.
--- NOTE | 2021-07-31 15:48 | P.CONS ---
History of Present Illness - Reason for Consult Consult date: 07/31/21 Recurrent progressive shortness - History of Present Illness Mr. Mcginnis is a 71-year-old white male patient, with overall well controlled medical problems at baseline. The patient states that he had presented in 06/18 with new onset of shortness of breath and feeling of some tightness and pressure in the left chest. He was found to have a left pleural effusion, and initially underwent thoracentesis on 06/08/21. Pathology was negative. He then had recurrence with another thoracentesis in early 07/18 again with negative cytology. It is subsequent recurrence of effusion, the patient was taken to surgery on 07/22/21 by thoracic surgery. On thoracoscopic evaluation he was found to have approximately due to thick rind encasing in the artery of the left lung. Thoracoscopic biopsy was positive for mesothelioma. He did have a partial decortication. The patient was supposed to see Dr. Sheldon in the office on 08/02/21. He came back into the hospital because of recurrence of shortness of breath especially over the past 2-3 days he denied any fever or chills or significant cough. He did not recall any specific exposure to asbestos. He states that he has been a nonsmoker for many years, though he has had some exposure to secondhand smoking A chest x-ray him a CTA, and just sound confirmed recurrent left-sided pleural effusion. He was also found to have a new cavitary lesion in the left lung, it is felt to be more likely pneumonia, versus malignancy, as it was new compared to chest imaging done at the time of his VATS procedure. Review of Systems Constitutional: Reports fatigue, Reports weakness Eyes: denies blurred vision, denies pain Ears, nose, mouth and throat: Denies headache, Denies sore throat Cardiovascular: Reports shortness of breath Respiratory: Reports dyspnea Gastrointestinal: Denies abdominal pain, Denies diarrhea, Denies nausea, Denies vomiting Genitourinary: Reports as per HPI Musculoskeletal: Reports muscle weakness Integumentary: Denies pruritus, Denies rash Neurological: Reports weakness Psychiatric: Denies anxiety, Denies depression Endocrine: Denies fatigue, Denies weight change Hematologic/Lymphatic: Reports as per HPI Past Medical History Past Medical History: COPD, Hypertension Additional Past Medical History / Comment(s): Hx Woods's palsy. Had left pleural effusion on 06/08/21, s/p left thoracentesis status post, sinus tachycardia - seen for cardiac clearance by Dr Carlson. Occ shortness of breath, has O2 @ 2L, using prn. History of Any Multi-Drug Resistant Organisms: None Reported Past Surgical History: No Surgical Hx Reported Additional Past Surgical History / Comment(s): thoracentesis Past Anesthesia/Blood Transfusion Reactions: No Reported Reaction Additional Past Anesthesia/Blood Transfusion Reaction / Comm: . Past Psychological History: No Psychological Hx Reported Additional Psychological History / Comment(s): . Smoking Status: Never smoker Past Alcohol Use History: None Reported Past Drug Use History: None Reported - Past Family History Mother Family Medical History: Cancer Additional Family Medical History / Comment(s): Mother of pancreatic cancer at the age of 61 yrs. Father Family Medical History: COPD, Hypertension Additional Family Medical History / Comment(s): Father is 90 yrs old. Brother(s) Family Medical History: Hypertension Additional Family Medical History / Comment(s): epilepsy Medications and Allergies Home Medications Medication Instructions Recorded Confirmed Type Acetaminophen Tab [Tylenol] 650 mg PO Q4HR PRN tab 07/24/21 07/30/21 Rx traMADol HCl [Ultram] 50 mg PO Q6HR PRN #14 tab 07/24/21 07/30/21 Rx Allergies Allergy/AdvReac Type Severity Reaction Status Date / Time No Known Allergies Allergy Verified 07/30/21 18:34 Physical Exam Vitals: Vital Signs Temp Pulse Pulse Resp BP BP Pulse Ox 07/31/21 13:04 109 H 07/31/21 12:10 108 H 07/31/21 11:59 107 H 97 07/31/21 11:00 109 H 24 136/76 95 07/31/21 08:07 97.9 F 101 H 28 H 121/61 95 07/31/21 03:29 98.1 F 106 H 24 117/79 94 L 07/31/21 00:01 22 94 L 07/30/21 23:31 103 H 24 134/84 94 L 07/30/21 21:28 97.8 F 102 H 18 140/80 96 07/30/21 18:35 115 H 18 115/78 95 07/30/21 18:16 24 07/30/21 17:12 97.6 F 124 H 24 125/80 96 Intake and Output 07/31/21 07/31/21 07/31/21 06:59 14:59 22:59 Output Total 300 300 Balance -300 -300 Output: Urine 300 300 Other: Voiding Method Urinal Weight 72.575 kg - Constitutional General appearance: mild distress - EENT Eyes: EOMI, PERRLA ENT: hearing grossly normal, normal oropharynx - Neck Neck: no lymphadenopathy Thyroid: bilateral: normal size - Respiratory Respiratory: left: diminished - Cardiovascular Rhythm: regular Heart sounds: normal: S1, S2 - Gastrointestinal General gastrointestinal: normal bowel sounds, soft - Integumentary Integumentary: normal - Neurologic Neurologic: CNII-XII intact - Musculoskeletal Musculoskeletal: generalized weakness, strength equal bilaterally - Psychiatric Psychiatric: A&O x's 3, intact judgment & insight Results CBC & Chem 7: 07/30/21 18:00 07/30/21 18:00 Labs: Abnormal Lab Results - Last 24 Hours (Table) 07/30/21 07/30/21 07/30/21 Range/Units 18:00 18:00 18:00 WBC 18.7 H (3.8-10.6) k/uL RBC 3.37 L (4.30-5.90) m/uL Hgb 8.1 L (13.0-17.5) gm/dL Hct 27.6 L (39.0-53.0) % MCH 24.1 L (25.0-35.0) pg MCHC 29.4 L (31.0-37.0) g/dL RDW 16.4 H (11.5-15.5) % Plt Count 606 H (150-450) k/uL Neutrophils # 16.0 H (1.3-7.7) k/uL D-Dimer 4.25 H (<0.60) mg/L FEU Sodium 135 L (137-145) mmol/L Glucose 178 H (74-99) mg/dL Plasma Lactic Acid Terry (0.7-2.0) mmol/L Calcium 7.5 L (8.4-10.2) mg/dL AST 60 H (17-59) U/L Total Protein 5.6 L (6.3-8.2) g/dL Albumin 2.5 L (3.5-5.0) g/dL 07/30/21 Range/Units 18:00 WBC (3.8-10.6) k/uL RBC (4.30-5.90) m/uL Hgb (13.0-17.5) gm/dL Hct (39.0-53.0) % MCH (25.0-35.0) pg MCHC (31.0-37.0) g/dL RDW (11.5-15.5) % Plt Count (150-450) k/uL Neutrophils # (1.3-7.7) k/uL D-Dimer (<0.60) mg/L FEU Sodium (137-145) mmol/L Glucose (74-99) mg/dL Plasma Lactic Acid Terry 2.2 H* (0.7-2.0) mmol/L Calcium (8.4-10.2) mg/dL AST (17-59) U/L Total Protein (6.3-8.2) g/dL Albumin (3.5-5.0) g/dL Comments: Pathology report reviewed Chest ultrasound report reviewed Chest x-ray: report reviewed CT scan - chest: report reviewed Assessment and Plan (1) Mesothelioma of left lung Narrative/Plan: This is a recent diagnosis. The patient presented with recurrent pleural effusions with cytology times to being negative. The diagnosis was made on open thoracotomy with pleural biopsy. The patient appears to have fairly extensive pleural disease on the left with apparently may argue of the left lung encased with a thick malignant rind. CT at this admission raises the possibility of mediastinal adenopathy also. In addition there is a new cavitary lesion, though this may be more likely pneumonia. - The diagnosis was reviewed with the patient. He claimed that he was aware that he likely had cancer, but did not know more details. The pathophysiology was discussed with him. Interestingly he denies any known history of significant asbestos exposure or even firsthand smoking. - The patient was advised that given the extent of disease it is highly unlikely that he would be surgical, especially in the first line. Therefore typically, upfront treatment would be systemic. Standard regimen with recommendation chemotherapy , pemetrexed based, plus/minus immunotherapy. - The patient has an appointment with Dr. Sheldon next week. Current Visit: Yes Status: Acute Code(s): C45.7 - MESOTHELIOMA OF OTHER SITES SNOMED Code(s): 337949988 (2) Pleural effusion Narrative/Plan: The patient has developed recurrent pleural effusion again. Therefore to pulmo nary medicine and CT surgery as to whether he needs an indwelling catheter placed Current Visit: Yes Status: Acute Code(s): J90 - PLEURAL EFFUSION, NOT ELSEWHERE CLASSIFIED SNOMED Code(s): 55573798 Plan: New cavitary lesion more likely represents pneumonia, rather than malignancy given the development since chest x-ray negative for the same on 07/22/21. Defer to the admitting service and pulmonary medicine for treatment.
[2021-07-31] MEDS: PIPERACILLIN-TAZOBACTAM 3.375 GM in SODIUM CHLORIDE 0.9% 100 ML IVPB SCH (15:49)
[2021-07-31] MEDS: IPRATROPIUM-ALBUTEROL 3 ML NEB INHALATION PRN ×2 (16:12→19:22)
[2021-07-31] MEDS: METOPROLOL TARTRATE 25 MG TAB PO SCH (18:40)
[2021-08-01] MEDS: PIPERACILLIN-TAZOBACTAM 3.375 GM in SODIUM CHLORIDE 0.9% 100 ML IVPB SCH ×4 (00:19→23:36)
[2021-08-01] MEDS: traMADol 50 MG TAB PO PRN ×2 (08:51→20:53)
[2021-08-01] MEDS: HEPARIN SODIUM,PORCINE/PF 5,000 UNIT/0.5 ML SYRINGE SQ SCH ×2 (08:52→20:52)
[2021-08-01] MEDS: FAMOTIDINE 20 MG/2 ML VIAL IV SCH ×2 (08:52→20:52)
[2021-08-01] MEDS: METOPROLOL TARTRATE 25 MG TAB PO SCH ×2 (08:52→20:52)
[2021-08-01 09:39] LABS: Anisocytosis Slight; Basophils # (A) 0.1 k/uL (0-0.2); Basophils % (A) 0 %; Eosinophils # (A) 0.1 k/uL (0-0.7); Eosinophils % (A) 0 %; HCT 25.1 % (39.0-53.0); HGB 7.3 gm/dL (13.0-17.5); Hypochromasia Marked; Lymphocytes # (A) 1.2 k/uL (1.0-4.8); Lymphocytes % (A) 8 %; MCH 24.3 pg (25.0-35.0); MCHC 28.9 g/dL (31.0-37.0); MCV 84.3 fL (80.0-100.0); Mean Platelet Volume 6.3; Monocytes # (A) 0.5 k/uL (0-1.0); Monocytes % (A) 3 %; Neutrophils # (A) 13.8 k/uL (1.3-7.7); Neutrophils % (A) 88 %; Platelet Count 539 k/uL (150-450); RBC 2.98 m/uL (4.30-5.90); RDW 16.9 % (11.5-15.5); WBC 15.8 k/uL (3.8-10.6)
[2021-08-01 09:44] LABS: African American GFR (CKD) >90 (>60 ml/min/1.73 sqM); Anion Gap 6 mmol/L; Blood Urea Nitrogen 14 mg/dL (9-20); Calcium 7.7 mg/dL (8.4-10.2); Carbon Dioxide 27 mmol/L (22-30); Chloride 103 mmol/L (98-107); Glucose 174 mg/dL (74-99); Magnesium 2.1 mg/dL (1.6-2.3); Non-African American GFR(CKD) >90 (>60 ml/min/1.73 sqM); Potassium 3.7 mmol/L (3.5-5.1); Sodium 136 mmol/L (137-145)
--- NOTE | 2021-08-01 13:55 | P.PN ---
Subjective Progress Note Date: 08/01/21 This is a pleasant 71-year-old male patient with a known history of hypertension, obesity, chronic anemia, recurrent left-sided pleural effusion with previous thoracocentesis. He had subsequently undergone a left thoracotomy on 07/21/2021 with left pleural and lung biopsy now found to be positive for mes othelioma. He was discharged on 07/24/2021. He presented to the emergency room yesterday with worsening shortness of breath. Chest x-ray revealed worsening opacification of the left hemithorax due to acute atelectasis/airspace disease and enlarging pleural effusion. CT angiogram ruled out pulmonary embolism. There was interval worsening left-sided pleural effusion with worsening lobulated pleural thickening of the left pleural space. There is new intralobular septal thickening suggestive of new pulmonary edema. New cavitary lesions could represent necrotizing pneumonia versus necrotic mass. Increasing mediastinal lymphadenopathy along with left internal mammary lymph node most likely secondary to metastatic lymphadenopathy. Ultrasound of the left chest revealed a pocket size of 6.3 cm. Dopplers of the lower extremity were negative for DVT. White count 18.7. Hemoglobin 8.1. Platelets 606. D-dimer 4.25. Sodium 135. Potassium 3.7. BUN 18. Creatinine 0.9. Glucose 178. AST 60. ALT 34. Her BNP 1500. He's been initiated on DuoNeb inhalations. Heparin for DVT prophylaxis. He is seen today in consultation on the selective care unit. He is currently sitting up in bed. Awake and alert in no acute distress. He is maintaining O2 saturations in the mid 90s on 3 L/m per nasal cannula. He has been informed of his diagnosis of mesothelioma. Oncology consult pending. The patient is seen today 08/01/2021 in follow-up on the selective care unit. He is currently sitting up in bed. Awake and alert in no acute distress. He is maintaining O2 saturation in the 90s on 2 L/m per nasal cannula. He is afebrile. Hemodynamically stable. Blood culture reveals no growth. White count 15.8. Hemoglobin 7.3. Platelet count 539. Sodium 136. Potassium 3.7. BUN 14. Creatinine 0.81. He is continued on DuoNeb inhalations. Remains on antibiotics in form of Zosyn. Heparin for DVT prophylaxis. Objective - Vital Signs Vital signs: Vital Signs Temp 97.6 F 08/01/21 08:00 Pulse 87 08/01/21 13:08 Resp 22 08/01/21 11:12 BP 105/55 08/01/21 11:12 Pulse Ox 95 08/01/21 11:12 FiO2 Intake & Output 07/31/21 08/01/21 08/01/21 18:59 06:59 18:59 Intake Total 240 Output Total 300 200 350 Balance -300 -200 -110 Intake: Oral 240 Output: Urine 300 200 350 Other: Voiding Method Urinal Urinal - Exam GENERAL EXAM: Alert, pleasant 71-year-old male patient, on 2 L nasal cannula, comfortable in no apparent distress. HEAD: Normocephalic. EYES: Normal reaction of pupils, equal size. NOSE: Clear with pink turbinates. THROAT: No erythema or exudates. NECK: No masses, no JVD. CHEST: No chest wall deformity. LUNGS: Equal air entry with crackles in the left lung base, diminished. CVS: S1 and S2 normal with no audible murmur, regular rhythm. ABDOMEN: No hepatosplenomegaly, normal bowel sounds, no guarding or rigidity. SPINE: No scoliosis or deformity SKIN: No rashes CENTRAL NERVOUS SYSTEM: No focal deficits, tone is normal in all 4 extremities. EXTREMITIES: There is no peripheral edema. No clubbing, no cyanosis. Peripheral pulses are intact. - Labs CBC & Chem 7: 08/01/21 09:05 08/01/21 09:05 Labs: Abnormal Lab Results - Last 24 Hours (Table) 07/31/21 08/01/21 08/01/21 Range/Units 08:53 09:05 09:05 WBC 15.8 H (3.8-10.6) k/uL RBC 2.98 L (4.30-5.90) m/uL Hgb 7.3 L (13.0-17.5) gm/dL Hct 25.1 L (39.0-53.0) % MCH 24.3 L (25.0-35.0) pg MCHC 28.9 L (31.0-37.0) g/dL RDW 16.9 H (11.5-15.5) % Plt Count 539 H (150-450) k/uL Neutrophils # 13.8 H (1.3-7.7) k/uL Sodium 136 L (137-145) mmol/L Glucose 174 H (74-99) mg/dL Calcium 7.7 L (8.4-10.2) mg/dL Procalcitonin 0.61 H (0.02-0.09) ng/mL Microbiology - Last 24 Hours (Table) 07/30/21 18:00 Blood Culture - Preliminary Blood No Growth after 24 hours Assessment and Plan Assessment: Acute hypoxemic respiratory failure secondary to increasing left sided recurrent pleural effusion and atelectasis secondary to mesothelioma the left lung and pleural rind diagnosed by wedge biopsy on 07/21/2021 Leukocytosis secondary to suspected postobstructive pneumonia, currently on Zosyn, pro-calcitonin 0.61 Recurrent left-sided pleural effusion secondary to above Obesity Hypertension Chronic anemia, current hemoglobin 7.3 Plan: The patient was seen and evaluated Labs and medications reviewed Continue bronchodilators and Zosyn Pro-calcitonin 0.61 Oncology requesting Pleurx catheter placement recurrent left-sided pleural effusion We will continue to follow and make further recommendations based on his clinical status I have personally seen and examined the patient, performed the documentation and the assessment and plan as written. Number of minutes spent on the visit: 10.
[2021-08-01] MEDS: IPRATROPIUM-ALBUTEROL 3 ML NEB INHALATION PRN ×2 (15:17→19:41)
--- NOTE | 2021-08-01 17:12 | P.PN ---
Subjective This is a pleasant 71 years old male with past medical history of COPD, Hypertension. Had left pleural effusion on 06/08/21, s/p left thoracentesis, has O2 @ 2L, using prn. Presents with worsening dyspnea over the last few days. Patient told me since June 08 is starts having dyspnea and since then is getting progressively worse. Occasional dry cough, no chest pain, no diarrhea or vomiting. No dizziness. Last week he had Left thoracotomy the left pleural and lung biopsy, there is surgical wound with ender, it looks clean and closed, there is 2 puncture wounds healing with no evidence of infection. No urinary complaints. Patient has memory problems and could not remember all the details. However he says that he having been started chemotherapy and he thinks he is going to see a doctor whom he believes his oncologist. On admission patient is tachypneic and tachycardic, blood pressure is 117/79 CBC showing leukocytosis of 18.7 K, it was 18.9 last month. INR is 1.1. D-dimer elevated 4.2. BMP is unremarkable. Liver enzymes not elevated. ProBNP is 1500 and troponin negative less than 0.02. EKG showing sinus tachycardia with PVCs rate of 125. No significant ST-T changes CTA of the chest: No pulmonary embolism. Worsening left pleural effusion. New cavitary lesion of the left lung which could represent necrotizing pneumonia versus necrotic mass. Mediastinal lymphadenopathy 08/01/2021 Patient remains tachypneic and saturation actually is better than yesterday. His breathing difficulty feels better today. He is saturating 97% on 2 L oxygen via nasal cannula He has this leukocytosis and hemoglobin dropped it 0.1 down to 7.3, could be elements of hemodilution but we will need to keep his hemoglobin closely. His new cavitary lesion in the left flank most likely infection procalcitonin elevated at 0.61. Patient is currently on Zosyn Objective - Vital Signs Vital signs: Vital Signs Temp 97.6 F 08/01/21 08:00 Pulse 87 08/01/21 11:12 Resp 22 08/01/21 11:12 BP 105/55 08/01/21 11:12 Pulse Ox 95 08/01/21 11:12 FiO2 Intake & Output 07/31/21 08/01/21 08/01/21 18:59 06:59 18:59 Intake Total 240 Output Total 300 200 350 Balance -300 -200 -110 Intake: Oral 240 Output: Urine 300 200 350 Other: Voiding Method Urinal Urinal - Exam GENERAL: The patient is alert and oriented x3, not in any acute distress. Well developed, well nourished. HEENT: Pupils are round and equally reacting to light. EOMI. No scleral icterus. No conjunctival pallor. Normocephalic, atraumatic. No pharyngeal erythema. No thyromegaly. CARDIOVASCULAR: S1 and S2 present. No murmurs, rubs, or gallops. -PULMONARY: Chest is clear to auscultation, no wheezing or crackles. Decreased breath sounds on the left side with some crepitation ABDOMEN: Soft, nontender, nondistended, normoactive bowel sounds. No palpable organomegaly. MUSCULOSKELETAL: No joint swelling or deformity. EXTREMITIES: No cyanosis, clubbing, or pedal edema. NEUROLOGICAL: Gross neurological examination did not reveal any focal deficits. SKIN: No rashes. no petechiae. - Labs CBC & Chem 7: 08/01/21 09:05 08/01/21 09:05 Labs: Abnormal Lab Results - Last 24 Hours (Table) 07/31/21 08/01/21 08/01/21 Range/Units 08:53 09:05 09:05 WBC 15.8 H (3.8-10.6) k/uL RBC 2.98 L (4.30-5.90) m/uL Hgb 7.3 L (13.0-17.5) gm/dL Hct 25.1 L (39.0-53.0) % MCH 24.3 L (25.0-35.0) pg MCHC 28.9 L (31.0-37.0) g/dL RDW 16.9 H (11.5-15.5) % Plt Count 539 H (150-450) k/uL Neutrophils # 13.8 H (1.3-7.7) k/uL Sodium 136 L (137-145) mmol/L Glucose 174 H (74-99) mg/dL Calcium 7.7 L (8.4-10.2) mg/dL Procalcitonin 0.61 H (0.02-0.09) ng/mL Microbiology - Last 24 Hours (Table) 06/03/22 18:00 Blood Culture - Preliminary Blood No Growth after 24 hours Assessment and Plan Assessment: Pulmonary Mesothelioma Recurrent and worsening left pleural effusion Left lung Cavitary lesion, necrotizing pneumonia versus metastasis is suspected (less likely) Elevated d-dimer, with negative PE on CTA of the chest chronic leukocytosis Chronic hypoxic respiratory failure Plan: This is a pleasant 71 is a male who presents with pleural effusion with history of lung cancer suspected, with cavitary lesions and the ventricular cavity. Continue with Zosyn , pulmonary team were consulted. Oncology team consult Labs and medication were reviewed.. Continue same treatment. Continue with symptomatic treatment. Resume home medication. Monitor lytes and vitals. DVT and GI prophylaxis. Further recommendations depends on the clinical course of the patient DVT prophylaxis: Subcutaneous heparin GI Prophylaxis: Pepcid PT/OT: Pending Prognosis is guarded
[2021-08-02] MEDS: FAMOTIDINE 20 MG/2 ML VIAL IV SCH ×2 (08:23→20:05)
[2021-08-02] MEDS: METOPROLOL TARTRATE 25 MG TAB PO SCH ×2 (08:23→20:05)
[2021-08-02] MEDS: HEPARIN SODIUM,PORCINE/PF 5,000 UNIT/0.5 ML SYRINGE SQ SCH ×2 (08:23→20:05)
[2021-08-02] MEDS: PIPERACILLIN-TAZOBACTAM 3.375 GM in SODIUM CHLORIDE 0.9% 100 ML IVPB SCH ×3 (08:23→23:56)
[2021-08-02 09:41] LABS: Anisocytosis Slight; Basophils % (A) 0 %; Eosinophils # (A) 0.1 k/uL (0-0.7); Eosinophils % (A) 0 %; HCT 26.1 % (39.0-53.0); HGB 7.7 gm/dL (13.0-17.5); Hypochromasia Marked; Lymphocytes # (A) 1.1 k/uL (1.0-4.8); Lymphocytes % (A) 6 %; MCH 24.7 pg (25.0-35.0); MCHC 29.5 g/dL (31.0-37.0); MCV 83.9 fL (80.0-100.0); Mean Platelet Volume 6.4; Monocytes # (A) 0.7 k/uL (0-1.0); Monocytes % (A) 4 %; Neutrophils # (A) 14.8 k/uL (1.3-7.7); Neutrophils % (A) 88 %; Platelet Count 531 k/uL (150-450); RBC 3.11 m/uL (4.30-5.90); RDW 17.1 % (11.5-15.5); WBC 16.9 k/uL (3.8-10.6)
[2021-08-02 10:12] LABS: ALT 74 U/L (4-49); AST 114 U/L (17-59); African American GFR (CKD) >90 (>60 ml/min/1.73 sqM); Albumin 2.4 g/dL (3.5-5.0); Alkaline Phosphatase 92 U/L (38-126); Anion Gap 6 mmol/L; Bilirubin, Delta 0.2 mg/dL (0.0-0.2); Bilirubin,Unconjugated 0.3 mg/dL (0.0-1.1); Blood Urea Nitrogen 13 mg/dL (9-20); Calcium 7.7 mg/dL (8.4-10.2); Carbon Dioxide 29 mmol/L (22-30); Chloride 102 mmol/L (98-107); Glucose 134 mg/dL (74-99); Non-African American GFR(CKD) 89 (>60 ml/min/1.73 sqM); Potassium 3.9 mmol/L (3.5-5.1); Sodium 137 mmol/L (137-145); Total Bilirubin 0.5 mg/dL (0.2-1.3); Total Protein 5.6 g/dL (6.3-8.2)
[2021-08-02] MEDS: IPRATROPIUM-ALBUTEROL 3 ML NEB INHALATION PRN ×4 (11:22→23:32)
--- NOTE | 2021-08-02 11:29 | P.GSCN ---
History of Present Illness Consult date: 08/02/21 Reason for Consult: Pleurx catheter placement Requesting physician: Arnaldo Larkin History of present illness: This is a 71-year-old gentleman who does not follow on an outpatient basis with a primary care physician. He is a previous medical history of recurrent left- sided pleural effusion with groundglass opacity and nodules of the left lung with pleural thickening of the left lung status post thoracentesis 2 as well as left-sided video-assisted thoracoscopy with subsequent left thoracotomy for left pleural biopsy and partial decortication 07/21/21 with pathology consistent with mesothelioma, COPD with home oxygen, hypertension, chronic anemia, never smoker, and no known history of asbestos exposure. He was recently discharged on 07/24/2021 after surgical lung biopsy and was initially doing well at home. A few days ago he began to notice increased shortness of breath with activity and at rest so he presented back to [facility] emergency room for evaluation and treatment. He denied any chest pain, fever, chills, GI disturbances, or any other symptoms. In the emergency room chest x-ray demonstrated worsening opacification of the left hemithorax. Chest CTA demonstrated no pulmonary embolism, interval worsening of left-sided pleural effusion with worsening lobulated pleural thickening of the left pleural space and new intralobular septal thickening with new cavitary lesion in the left lung. WBC 18.7, hemoglobin 8.1, d-dimer 4.25, creatinine 0.9, lactic acid 2.2, proBNP 1500. The patient was admitted for evaluation and treatment with consultation placed to pulmonology and oncology. He was started on IV antibiotics. Chest ultrasound was completed showing 6.3 cm left-sided pleural fluid pocket. Consultation was placed to cardiothoracic surgery for possible Pleurx catheter placement. Review of Systems Review of systems was completed and was negative except as noted - Respiratory Reports dyspnea Past Medical History Past Medical History: Cancer, COPD, Hypertension Additional Past Medical History / Comment(s): Hx Woods's palsy. Had left pleural effusion on 06/08/21, s/p left thoracentesis status post, sinus tachycardia - seen for cardiac clearance by Dr Carlson. Occ shortness of breath, has O2 @ 2L, using prn. History of Any Multi-Drug Resistant Organisms: None Reported Additional Past Surgical History / Comment(s): thoracentesis; left-sided VATS with subsequent left thoracotomy Past Anesthesia/Blood Transfusion Reactions: No Reported Reaction Additional Past Anesthesia/Blood Transfusion Reaction / Comm: . Past Psychological History: No Psychological Hx Reported Additional Psychological History / Comment(s): . Smoking Status: Never smoker Past Alcohol Use History: None Reported Past Drug Use History: None Reported - Past Family History Mother Family Medical History: Cancer Additional Family Medical History / Comment(s): Mother of pancreatic cancer at the age of 61 yrs. Father Family Medical History: COPD, Hypertension Additional Family Medical History / Comment(s): Father is 90 yrs old. Brother(s) Family Medical History: Hypertension Additional Family Medical History / Comment(s): epilepsy Medications and Allergies Home Medications Medication Instructions Recorded Confirmed Type Acetaminophen Tab [Tylenol] 650 mg PO Q4HR PRN tab 07/24/21 07/30/21 Rx traMADol HCl [Ultram] 50 mg PO Q6HR PRN #14 tab 07/24/21 07/30/21 Rx Amoxic-Pot Clav 875-125Mg 1 tab PO Q12HR 5 Days #10 tab 08/07/21 Rx [Augmentin 875-125] Ipratropium-Albuterol Nebulize 3 ml INHALATION RT-QID PRN each 08/07/21 Rx [Duoneb 0.5 mg-3 mg/3 ml Soln] Metoprolol Tartrate [Lopressor] 25 mg PO BID tab 08/07/21 Rx predniSONE 10 mg PO DIRECTED 16 Days #40 08/07/21 Rx tab Allergies Allergy/AdvReac Type Severity Reaction Status Date / Time egg Allergy Rash/Hives Verified 08/02/21 13:07 Surgical - Exam Vital Signs Temp Pulse Resp BP Pulse Ox 97.6 F 124 H 24 125/80 96 07/30/21 17:12 07/30/21 17:12 07/30/21 17:12 07/30/21 17:12 07/30/21 17:12 CONSTITUTIONAL: Awake and alert, appears comfortable, cooperative, well- developed, well-nourished, no pain, no acute distress EYES: Pupils equal, round, reactive to light, normal ocular movement ENT: Moist mucous membranes without oral lesions present NECK: No masses, no bruits, trachea midline RESPIRATORY: Lungs sounds diminished on the left. Respirations even, nonlabored. Currently on 2 L nasal cannula with oxygen saturation 93%. Strong cough. CARDIOVASCULAR: S1, S2 present. Regular rate and rhythm, sinus rhythm on telemetry. Palpable peripheral pulses bilaterally. No edema present. GASTROINTESTINAL: Abdomen soft, nontender, nondistended without masses or organomegaly noted. There is no rebound or guarding present. Active bowel sounds present 4 quadrants. GENITOURINARY: Deferred INTEGUMENTARY: Skin is warm and dry with evidence of good perfusion. Left- sided thoracotomy incision well approximated, intact ender NEUROLOGIC: Cranial nerves II through XII intact, normal coordination, no obvious motor or sensory deficits, speech is normal MUSKULOSKELETAL: Able to move all extremities, strength equal bilaterally, normal posture PSYCHIATRIC: Alert and oriented to person place and time, appropriate affect, intact judgment and insight Results - Labs 08/06/21 12:04 08/06/21 12:04 Abnormal Lab Results - Last 24 Hours (Table) 08/02/21 08/02/21 Range/Units 09:04 09:04 WBC 16.9 H (3.8-10.6) k/uL RBC 3.11 L (4.30-5.90) m/uL Hgb 7.7 L (13.0-17.5) gm/dL Hct 26.1 L (39.0-53.0) % MCH 24.7 L (25.0-35.0) pg MCHC 29.5 L (31.0-37.0) g/dL RDW 17.1 H (11.5-15.5) % Plt Count 531 H (150-450) k/uL Neutrophils # 14.8 H (1.3-7.7) k/uL Glucose 134 H (74-99) mg/dL Calcium 7.7 L (8.4-10.2) mg/dL AST 114 H (17-59) U/L ALT 74 H (4-49) U/L Total Protein 5.6 L (6.3-8.2) g/dL Albumin 2.4 L (3.5-5.0) g/dL Microbiology - Last 24 Hours (Table) 07/30/21 18:00 Blood Culture - Preliminary Blood No Growth after 48 hours Diabetes panel 08/02/21 Range/Units 09:04 Sodium 137 (137-145) mmol/L Potassium 3.9 (3.5-5.1) mmol/L Chloride 102 (98-107) mmol/L Carbon Dioxide 29 (22-30) mmol/L BUN 13 (9-20) mg/dL Creatinine 0.85 (0.66-1.25) mg/dL Glucose 134 H (74-99) mg/dL Calcium 7.7 L (8.4-10.2) mg/dL AST 114 H (17-59) U/L ALT 74 H (4-49) U/L Alkaline Phosphatase 92 (38-126) U/L Total Protein 5.6 L (6.3-8.2) g/dL Albumin 2.4 L (3.5-5.0) g/dL Calcium panel 08/02/21 Range/Units 09:04 Calcium 7.7 L (8.4-10.2) mg/dL Albumin 2.4 L (3.5-5.0) g/dL Pituitary panel 08/02/21 Range/Units 09:04 Sodium 137 (137-145) mmol/L Potassium 3.9 (3.5-5.1) mmol/L Chloride 102 (98-107) mmol/L Carbon Dioxide 29 (22-30) mmol/L BUN 13 (9-20) mg/dL Creatinine 0.85 (0.66-1.25) mg/dL Glucose 134 H (74-99) mg/dL Calcium 7.7 L (8.4-10.2) mg/dL Adrenal panel 08/02/21 Range/Units 09:04 Sodium 137 (137-145) mmol/L Potassium 3.9 (3.5-5.1) mmol/L Chloride 102 (98-107) mmol/L Carbon Dioxide 29 (22-30) mmol/L BUN 13 (9-20) mg/dL Creatinine 0.85 (0.66-1.25) mg/dL Glucose 134 H (74-99) mg/dL Calcium 7.7 L (8.4-10.2) mg/dL Total Bilirubin 0.5 (0.2-1.3) mg/dL AST 114 H (17-59) U/L ALT 74 H (4-49) U/L Alkaline Phosphatase 92 (38-126) U/L Total Protein 5.6 L (6.3-8.2) g/dL Albumin 2.4 L (3.5-5.0) g/dL - Imaging Chest x-ray: report reviewed, image reviewed CT scan - chest: report reviewed, image reviewed Assessment and Plan Assessment: 1. Recurrent left-sided pleural effusion with groundglass opacity and nodules of the left lung with pleural thickening of the left lung status post thoracentesis 2 as well as left-sided video-assisted thoracoscopy with subsequent left thoracotomy for left pleural biopsy and partial decortication 07/21/21 with pathology consistent with mesothelioma 2. COPD with home oxygen 3. Hypertension 4. Chronic anemia 5. Never smoker 6. No known history of asbestos exposure Plan: The patient was seen and examined at the bedside on the cardiac stepdown unit in no acute distress. Denies pain, states shortness of breath has improved since admission. Remains in sinus rhythm, hemodynamically stable. Currently on [address] findings were reviewed with Dr. Enciso who feels there is no indication for Pleurx catheter placement at this time as it will be difficult to place with very little fluid present. Most of what is being seen on the CT is along the right and/or cancer. Recommend medical management and possible pO2 of care consult. Incentive spirometry ordered and should be encouraged. Wean O2 as tolerated. Will remove ender today. Medical management of other comorbidities per primary care service, oncology. Thank you Dr. Larkin for this consult. Please call us with further questions. I have personally seen and examined the patient, performed the documentation and the assessment and plan as written. Number of minutes spent on the visit: 30. RACHNA Garland I agree with the mid-level findings and agree with the treatment plan I spent 40 minutes with the patient
--- NOTE | 2021-08-02 12:48 | P.PN ---
Subjective Progress Note Date: 08/02/21 This is a pleasant 71-year-old male patient with a known history of hypertension, obesity, chronic anemia, recurrent left-sided pleural effusion with previous thoracocentesis. He had subsequently undergone a left thoracotomy on 07/21/2021 with left pleural and lung biopsy now found to be positive for me sothelioma. He was discharged on 07/24/2021. He presented to the emergency room yesterday with worsening shortness of breath. Chest x-ray revealed worsening opacification of the left hemithorax due to acute atelectasis/airspace disease and enlarging pleural effusion. CT angiogram ruled out pulmonary embolism. There was interval worsening left-sided pleural effusion with worsening lobulated pleural thickening of the left pleural space. There is new intralobular septal thickening suggestive of new pulmonary edema. New cavitary lesions could represent necrotizing pneumonia versus necrotic mass. Increasing mediastinal lymphadenopathy along with left internal mammary lymph node most likely secondary to metastatic lymphadenopathy. Ultrasound of the left chest revealed a pocket size of 6.3 cm. Dopplers of the lower extremity were negative for DVT. White count 18.7. Hemoglobin 8.1. Platelets 606. D-dimer 4.25. Sodium 135. Potassium 3.7. BUN 18. Creatinine 0.9. Glucose 178. AST 60. ALT 34. Her BNP 1500. He's been initiated on DuoNeb inhalations. Heparin for DVT prophylaxis. He is seen today in consultation on the selective care unit. He is currently sitting up in bed. Awake and alert in no acute distress. He is maintaining O2 saturations in the mid 90s on 3 L/m per nasal cannula. He has been informed of his diagnosis of mesothelioma. Oncology consult pending. The patient is seen today 08/01/2021 in follow-up on the selective care unit. He is currently sitting up in bed. Awake and alert in no acute distress. He is maintaining O2 saturation in the 90s on 2 L/m per nasal cannula. He is afebrile. Hemodynamically stable. Blood culture reveals no growth. White count 15.8. Hemoglobin 7.3. Platelet count 539. Sodium 136. Potassium 3.7. BUN 14. Creatinine 0.81. He is continued on DuoNeb inhalations. Remains on antibiotics in form of Zosyn. Heparin for DVT prophylaxis. [place] and 22, I'm seeing the patient for a follow-up. He is short of breath and this is related to his malignant mesothelioma that was confirmed recently for thoracoscopy. I reviewed the repeat CAT scan of the chest that was done during this current admission. It is consistent with malignant mesothelioma. There is interval worsening in the thickness and the extent of the pleural rind that's around the left lung. There is also a small amount of pleural fluid collecting around the pleural surface which is loculated and this has been drained on multiple occasions and it is a bloody effusion. Cavitary lesions were also described in the left lung which obviously raises the concern for underlying necrotizing pneumonia versus malignancy itself. There is also increasing mediastinal lymphadenopathy most likely malignant. Right lung is essentially clear at this point in time. Based on all this, there is a high likelihood that the patient is having a rapid progression of his underlying malignant mesothelioma. He is chronically anemic and his hemoglobin is also has at 7.7 which is also contributing to shortness of breath. Oxygen requirements are 2 L per minute nasal cannula and the patient's pro calcitonin level at the time of admission was 0.6 and he was covered empirically with IV Zosyn. Objective - Vital Signs Vital signs: Vital Signs Temp 99.0 F 08/02/21 08:29 Pulse 94 08/02/21 11:36 Resp 24 08/02/21 08:29 BP 137/82 08/02/21 08:29 Pulse Ox 93 L 08/02/21 08:29 FiO2 Intake & Output 08/01/21 08/02/21 08/02/21 18:59 06:59 18:59 Intake Total 240 230 Output Total 650 200 325 Balance -410 -200 -95 Intake: IV 130 .9 @ 10 120 Invasive Line 1 10 Intake, IV Titration 100 Amount Piperacillin-Tazobactam 3 100 .375 gm In Sodium Chloride 0.9% 100 ml @ 25 mls/hr IVPB Q8HR [facility] Rx# :[id number] Oral 240 Output: Urine 650 200 325 Other: Voiding Method Urinal Urinal Urinal # Voids 1 - Exam GENERAL EXAM: Alert, pleasant 71-year-old male patient, on 2 L nasal cannula, c omfortable in no apparent distress. HEAD: Normocephalic. EYES: Normal reaction of pupils, equal size. NOSE: Clear with pink turbinates. THROAT: No erythema or exudates. NECK: No masses, no JVD. CHEST: No chest wall deformity. LUNGS: Equal air entry with crackles in the left lung base, diminished. CVS: S1 and S2 normal with no audible murmur, regular rhythm. ABDOMEN: No hepatosplenomegaly, normal bowel sounds, no guarding or rigidity. SPINE: No scoliosis or deformity SKIN: No rashes CENTRAL NERVOUS SYSTEM: No focal deficits, tone is normal in all 4 extremities. EXTREMITIES: There is no peripheral edema. No clubbing, no cyanosis. Peripheral pulses are intact. - Labs CBC & Chem 7: 08/02/21 09:04 08/02/21 09:04 Labs: Abnormal Lab Results - Last 24 Hours (Table) 08/02/21 08/02/21 Range/Units 09:04 09:04 WBC 16.9 H (3.8-10.6) k/uL RBC 3.11 L (4.30-5.90) m/uL Hgb 7.7 L (13.0-17.5) gm/dL Hct 26.1 L (39.0-53.0) % MCH 24.7 L (25.0-35.0) pg MCHC 29.5 L (31.0-37.0) g/dL RDW 17.1 H (11.5-15.5) % Plt Count 531 H (150-450) k/uL Neutrophils # 14.8 H (1.3-7.7) k/uL Glucose 134 H (74-99) mg/dL Calcium 7.7 L (8.4-10.2) mg/dL AST 114 H (17-59) U/L ALT 74 H (4-49) U/L Total Protein 5.6 L (6.3-8.2) g/dL Albumin 2.4 L (3.5-5.0) g/dL Microbiology - Last 24 Hours (Table) 07/30/21 18:00 Blood Culture - Preliminary Blood No Growth after 48 hours Assessment and Plan Plan: Acute hypoxemic respiratory failure secondary to increasing left sided recurrent pleural effusion and atelectasis secondary to mesothelioma the left lung and pleural rind diagnosed by wedge biopsy on 07/21/2021 Leukocytosis secondary to suspected postobstructive pneumonia, currently on Zosyn, pro-calcitonin 0.61 Recurrent left-sided pleural effusion secondary to above Obesity Hypertension Chronic anemia, current hemoglobin 7.3 Plan: I reviewed the CAT scan images and his presentation with worsening shortness of breath is related to progression of his underlying mesothelioma. The cavities in the left lung is probably a necrotic tumor and the patient has reactive l ymphadenopathy in addition to some chapped left-sided pleural effusion, small in size. Note that at the time of his thoracoscopy, the patient did not have any significant pleural fluid accumulation. As such, the chest tube was removed as output following the surgery/thoracoscopy was minimal from the left-sided chest tube. As such, this pleural effusion is trapped in the small and there is no va lue and draining the pleural fluid/that the patient is not going to have any the expansion of the left lung. Thyroid is spoken with his oncologist. He is to be considered for immunotherapy if his condition stabilizes. He is on 2 L of oxygen by nasal cannula. IV antibiotic coverage is empiric at this point in time. Recommend switching him to oral Augmentin. Pro-calcitonin 0.61 Absolutely no role for Pleurx catheter insertion We will continue to follow and make further recommendations based on his clinical status Prognosis remains extremely poor due to his underlying malignancy.
--- NOTE | 2021-08-02 18:06 | P.PN ---
Subjective Progress Note Date: 08/02/21 Principal diagnosis: mesothelioma, significant SOB In f/u today pt cont to have SOB with minimal activity, he does not understand why his breathing is not better. On 2L O2. Denies fever, nausea, chest pain, abd pain, no acute changes in bowel or bladder. Objective - Vital Signs Vital signs: Vital Signs Temp 97.8 F 08/02/21 15:30 Pulse 102 H 08/02/21 16:25 Resp 22 08/02/21 15:30 BP 93/54 08/02/21 15:30 Pulse Ox 92 L 08/02/21 15:30 FiO2 Intake & Output 08/01/21 08/02/21 08/02/21 18:59 06:59 18:59 Intake Total 240 570 Output Total 650 200 525 Balance -410 -200 45 Intake: IV 130 .9 @ 10 120 Invasive Line 1 10 Intake, IV Titration 200 Amount Piperacillin-Tazobactam 3 200 .375 gm In Sodium Chloride 0.9% 100 ml @ 25 mls/hr IVPB Q8HR [facility] Rx# :[id number] Oral 240 240 Output: Urine 650 200 525 Other: Voiding Method Urinal Urinal Urinal # Voids 1 # Bowel Movements 1 - Constitutional General appearance: Present: average body habitus, cooperative, mild distress - EENT Eyes: Present: anicteric sclerae, EOMI ENT: Present: hearing grossly normal, normal oropharynx - Respiratory Respiratory: left: other (near absent breath sounds) - Cardiovascular Rhythm: regular Heart sounds: normal: S1, S2 Abnormal Heart Sounds: Absent: systolic murmur, diastolic murmur, rub, S3 Gallop, S4 Gallop, click, other - Peripheral edema leg Peripheral Edema: bilateral: Trace - Gastrointestinal General gastrointestinal: Present: normal bowel sounds, soft. Absent: absent bowel sounds, decreased bowel sounds, distended, hepatomegaly, hyperactive bowel sounds, organomegaly, rigid, scaphoid, splenomegaly, tenderness, umbilical hernia, ventral hernia - Neurologic Neurologic: Present: CNII-XII intact (grossly) - Psychiatric Psychiatric: Present: A&O x's 3, appropriate affect, intact judgment & insight - Labs CBC & Chem 7: 08/02/21 09:04 08/02/21 09:04 Labs: Abnormal Lab Results - Last 24 Hours (Table) 08/02/21 08/02/21 Range/Units 09:04 09:04 WBC 16.9 H (3.8-10.6) k/uL RBC 3.11 L (4.30-5.90) m/uL Hgb 7.7 L (13.0-17.5) gm/dL Hct 26.1 L (39.0-53.0) % MCH 24.7 L (25.0-35.0) pg MCHC 29.5 L (31.0-37.0) g/dL RDW 17.1 H (11.5-15.5) % Plt Count 531 H (150-450) k/uL Neutrophils # 14.8 H (1.3-7.7) k/uL Glucose 134 H (74-99) mg/dL Calcium 7.7 L (8.4-10.2) mg/dL AST 114 H (17-59) U/L ALT 74 H (4-49) U/L Total Protein 5.6 L (6.3-8.2) g/dL Albumin 2.4 L (3.5-5.0) g/dL Microbiology - Last 24 Hours (Table) 07/30/21 18:00 Blood Culture - Preliminary Blood No Growth after 48 hours Assessment and Plan (1) Mesothelioma of left lung Current Visit: Yes Status: Acute Priority: High Code(s): C45.7 - MESOTHELIOMA OF OTHER SITES SNOMED Code(s): 139096299 (2) Dyspnea Current Visit: Yes Status: Acute Priority: High Code(s): R06.00 - DYSPNEA, UNSPECIFIED SNOMED Code(s): 258451264 Plan: Reviewed Pulmonary and CTS notes, appreciate evaluation and recommendations. Reviewed findings and recommendations with pt Discussed with pt that the pleura is thick because of malignancy and restricting the lt lung. There is no acute intervention that Pulm or CTS can perform to change his symptoms. Systemic therapy for mesothelioma needs to be started to treat the underlying cause and may be the only way to improve symptoms. He and his neighbor verbalized understanding recommendations. Will discuss with Primary Onc to see how soon pt can be started on therapy. Cont O2 for comfort Encourage ambulation with assistive device. Time with Patient: Greater than 30
[2021-08-02] MEDS ORDERED: hydrALAZINE HCL 20 MG/ML 1 ML VIAL IVP PRN (23:41)
[2021-08-02] MEDS: methylPREDNISolone SOD SUCCI 40 MG/ML 1 ML VIAL IV SCH (23:56)
[2021-08-02] MEDS: LORazepam 2 MG/ML INJ IV PRN (23:56)
--- NOTE | 2021-08-03 00:25 | XR ---
EXAMINATION TYPE: XR chest 1V portable DATE OF EXAM: 08/03/2021 COMPARISON: 07/30/2021 HISTORY: Short of breath TECHNIQUE: Single view FINDINGS: There is essentially complete opacification of the left hemithorax. Right lung appears karen r. No heart failure. IMPRESSION: Left-sided pulmonary consolidation and hydrothorax. There is progressive opacification of the left hemithorax compared to recent exam. Follow-up recommended.
[2021-08-03] MEDS: LORazepam 2 MG/ML INJ IV PRN (03:51)
[2021-08-03] MEDS: methylPREDNISolone SOD SUCCI 40 MG/ML 1 ML VIAL IV SCH ×2 (06:11→20:34)
[2021-08-03 07:26] LABS: ABG HCO3 29 mmol/L (21-25); ABG Oxygen Saturation 96.3 % (94-97); ABG PCO2 40 mmHg (35-45); ABG PH 7.46 (7.35-7.45); ABG PO2 76 mmHg (83-108); ABG TCO2 30 mmol/L (19-24); Allen Test Performed? Yes
--- NOTE | 2021-08-03 08:58 | CT ---
EXAMINATION TYPE: CT brain wo con DATE OF EXAM: 08/03/2021 COMPARISON: None HISTORY: 71-year-old male confusion, altered mental status TECHNIQUE: Examination was done in axial plane without intravenous contrast. Coronal and sagittal r econstructions performed. CT DLP: 1205.4 mGycm Automated exposure control for dose reduction was used. FINDINGS: There is no evidence of acute intracranial hemorrhage, acute ischemic changes, mass mass effect, or extra-axial fluid collection. There is no effacement of cerebral sulci or basal subarachnoid cistern s. There is no hydrocephalus. There is no midline shift. Estrada-white matter distinction is preserve d. Calcified extra-axial lesion along the superior left parasagittal falx measuring 2.0 cm. No significa nt associated mass effect. Noncalcified extra-axial mass superior right parasagittal falx measuring 1.1 cm, sagittal image 30. Nonspecific 7 mm focus of calcification superior to the body of the right lateral ventricle is nonspe cific. Mild age-related bifrontal cerebral cortical volume loss. Either old lacunar infarct or prominent perivascular space left basal ganglia. Trace mucosal thickening ethmoid air cells. Slight leftward nasal septal deviation. Mastoid air cells are well pneumatized. Cerumen left external auditory canal. IMPRESSION: No acute intracranial abnormality seen. A couple extra-axial lesion superiorly along the parasagittal midline measuring 1.1 cm on the right and 2.0 cm on the left likely meningiomas. Consider outpatient referral to neurosurgery surgery for any potential follow-up.
--- NOTE | 2021-08-03 09:19 | XR ---
EXAMINATION TYPE: XR abdomen 1V, XR chest 1V DATE OF EXAM: 08/03/2021 COMPARISON: X-ray dated 08/02/2021 INDICATION: Increased respiratory rate with distended abdomen and increased confusion TECHNIQUE: Single AP view of the chest and single AP view of the abdomen FINDINGS: Almost complete opacification of the left hemithorax by extensive pulmonary infiltration/infection, p ossibly associated with a left pleural effusion. Slightly improved aeration of the lateral aspect of the left upper to midlung zone. Persistent cardiomediastinal shift to the right side. No progressive right pulmonary consolidation. No right-sided pleural effusion or definite pneumothora x. Cardiac size cannot be properly assessed. Displaced fractures of the axillary portions of the left sixth and seventh ribs, please correlate clinically. No signs of free peritoneal air. Nonspecific gaseous distention of the small bowel without gross sign s of acute high-grade small bowel obstruction. No significant fecal loading of the colon. Degenerativ e changes of the lumbar spine. Arterial atherosclerotic calcifications. IMPRESSION: Fractured axillary portions of the left sixth and seventh ribs, please correlate clinically. Other fi ndings and interval changes as described above.
--- NOTE | 2021-08-03 10:12 | P.PN ---
Subjective Progress Note Date: 08/02/21 This is a pleasant 71 years old male with past medical history of COPD, Hypertension. Had left pleural effusion on 06/08/21, s/p left thoracentesis, has O2 @ 2L, using prn. Presents with worsening dyspnea over the last few days. Patient told me since June 08 is starts having dyspnea and since then is getting progressively worse. Occasional dry cough, no chest pain, no diarrhea or vomiting. No dizziness. Last week he had Left thoracotomy the left pleural and lung biopsy, there is surgical wound with ender, it looks clean and closed, there is 2 puncture wounds healing with no evidence of infection. No urinary complaints. Patient has memory problems and could not remember all the details. However he says that he having been started chemotherapy and he thinks he is going to see a doctor whom he believes his oncologist. On admission patient is tachypneic and tachycardic, blood pressure is 117/79 CBC showing leukocytosis of 18.7 K, it was 18.9 last month. INR is 1.1. D-dimer elevated 4.2. BMP is unremarkable. Liver enzymes not elevated. ProBNP is 1500 and troponin negative less than 0.02. EKG showing sinus tachycardia with PVCs rate of 125. No significant ST-T changes CTA of the chest: No pulmonary embolism. Worsening left pleural effusion. New cavitary lesion of the left lung which could represent necrotizing pneumonia versus necrotic mass. Mediastinal lymphadenopathy 08/01/2021 Patient remains tachypneic and saturation actually is better than yesterday. His breathing difficulty feels better today. He is saturating 97% on 2 L oxygen via nasal cannula He has this leukocytosis and hemoglobin dropped it 0.1 down to 7.3, could be elements of hemodilution but we will need to keep his hemoglobin closely. His new cavitary lesion in the left flank most likely infection procalcitonin elevated at 0.61. Patient is currently on Zosyn 08/02/2021 Patient is currently lying in bed. Awake and alert. Was admitted to hospital due to shortness of breath and mesothelioma. CT angiogram of the chest on admission showed no evidence of PE. Interval worsening left-sided pleural effusion with worsening lobulated pleural thickening of the left pleural space. There is new and probably lobular septal thickening suggestive of new pulmonary edema. Correlate with recent biopsy results and clinical picture for infection versus malignancy. New cavitary lesion seen from 06/24/2021 and the left lung which could represent necrotizing pneumonia versus necrotizing mass which is felt to be less likely given the short interval. Increasing mediastinal lymphadenopathy along with left internal mammary lymph node could be reactive versus secondary to metastatic lymphadenopathy. Pos ttraumatic changes of the left soft tissues with soft tissue now within the left lateral sidewall. Laboratory data showed WBC 16.9 hemoglobin 7.7 and platelets 531, sodium 137 potassium 3.921-2 bicarb is 29 BUN 13 and creatinine 0.85, albumin 2.4. Pro- calcitonin was 0.61 on 07/31/2021. Patient remains on antibiotic from Zosyn. Current medications reviewed. Objective - Vital Signs Vital signs: Vital Signs Temp 98.3 F 08/02/21 12:52 Pulse 60 08/02/21 12:52 Resp 24 08/02/21 12:52 BP 135/74 08/02/21 12:52 Pulse Ox 93 L 08/02/21 12:52 FiO2 Intake & Output 08/01/21 08/02/21 08/02/21 18:59 06:59 18:59 Intake Total 240 470 Output Total 650 200 325 Balance -410 -200 145 Intake: IV 130 .9 @ 10 120 Invasive Line 1 10 Intake, IV Titration 100 Amount Piperacillin-Tazobactam 3 100 .375 gm In Sodium Chloride 0.9% 100 ml @ 25 mls/hr IVPB Q8HR [facility] Rx# :[id number] Oral 240 240 Output: Urine 650 200 325 Other: Voiding Method Urinal Urinal Urinal # Voids 1 - Exam - Exam GENERAL: The patient is alert and oriented x3, not in any acute distress. Well developed, well nourished. HEENT: Pupils are round and equally reacting to light. EOMI. No scleral icterus. No conjunctival pallor. Normocephalic, atraumatic. No pharyngeal erythema. No thyromegaly. CARDIOVASCULAR: S1 and S2 present. No murmurs, rubs, or gallops. -PULMONARY: Chest is clear to auscultation, no wheezing or crackles. Decreased breath sounds on the left side with some crepitation ABDOMEN: Soft, nontender, nondistended, normoactive bowel sounds. No palpable organomegaly. MUSCULOSKELETAL: No joint swelling or deformity. EXTREMITIES: No cyanosis, clubbing, or pedal edema. NEUROLOGICAL: Gross neurological examination did not reveal any focal deficits. SKIN: No rashes. no petechiae. - Labs CBC & Chem 7: 08/02/21 09:04 08/02/21 09:04 Labs: Abnormal Lab Results - Last 24 Hours (Table) 08/02/21 08/02/21 Range/Units 09:04 09:04 WBC 16.9 H (3.8-10.6) k/uL RBC 3.11 L (4.30-5.90) m/uL Hgb 7.7 L (13.0-17.5) gm/dL Hct 26.1 L (39.0-53.0) % MCH 24.7 L (25.0-35.0) pg MCHC 29.5 L (31.0-37.0) g/dL RDW 17.1 H (11.5-15.5) % Plt Count 531 H (150-450) k/uL Neutrophils # 14.8 H (1.3-7.7) k/uL Glucose 134 H (74-99) mg/dL Calcium 7.7 L (8.4-10.2) mg/dL AST 114 H (17-59) U/L ALT 74 H (4-49) U/L Total Protein 5.6 L (6.3-8.2) g/dL Albumin 2.4 L (3.5-5.0) g/dL Microbiology - Last 24 Hours (Table) 07/30/21 18:00 Blood Culture - Preliminary Blood No Growth after 48 hours Assessment and Plan Assessment: Pulmonary Mesothelioma Recurrent and worsening left pleural effusion Left lung Cavitary lesion, necrotizing pneumonia versus metastasis is suspected (less likely) Elevated d-dimer, with negative PE on CTA of the chest chronic leukocytosis Chronic hypoxic respiratory failure Plan: This is a pleasant 71 is a male who presents with pleural effusion with history of lung cancer suspected, with cavitary lesions and the ventricular cavity. Continue with Zosyn , pulmonary team is following.. Oncology is on board. Labs and medication were reviewed.. Monitor lytes and vitals. DVT and GI prophylaxis. Further recommendations depends on the clinical course of the patient DVT prophylaxis: Subcutaneous heparin GI Prophylaxis: Pepcid PT/OT: Pending Prognosis is guarded Time with Patient: Greater than 30
[2021-08-03 10:44] LABS: Anisocytosis Slight; Basophils % (A) 0 %; Eosinophils # (A) 0.1 k/uL (0-0.7); Eosinophils % (A) 0 %; HGB 7.8 gm/dL (13.0-17.5); Hypochromasia Marked; Lymphocytes # (A) 0.6 k/uL (1.0-4.8); Lymphocytes % (A) 3 %; MCH 24.9 pg (25.0-35.0); MCHC 29.9 g/dL (31.0-37.0); MCV 83.2 fL (80.0-100.0); Mean Platelet Volume 6.2; Monocytes # (A) 0.5 k/uL (0-1.0); Monocytes % (A) 2 %; Neutrophils # (A) 18.7 k/uL (1.3-7.7); Neutrophils % (A) 94 %; Platelet Count 602 k/uL (150-450); RBC 3.12 m/uL (4.30-5.90); RDW 17.1 % (11.5-15.5); WBC 19.9 k/uL (3.8-10.6)
[2021-08-03] MEDS: FAMOTIDINE 20 MG/2 ML VIAL IV SCH ×2 (11:02→20:33)
[2021-08-03] MEDS: METOPROLOL TARTRATE 25 MG TAB PO SCH ×2 (11:03→20:34)
[2021-08-03] MEDS: PIPERACILLIN-TAZOBACTAM 3.375 GM in SODIUM CHLORIDE 0.9% 100 ML IVPB SCH ×3 (11:03→23:24)
[2021-08-03] MEDS: HEPARIN SODIUM,PORCINE/PF 5,000 UNIT/0.5 ML SYRINGE SQ SCH ×2 (11:03→20:34)
[2021-08-03 11:22] LABS: African American GFR (CKD) >90 (>60 ml/min/1.73 sqM); Anion Gap 6 mmol/L; Blood Urea Nitrogen 14 mg/dL (9-20); Calcium 7.7 mg/dL (8.4-10.2); Carbon Dioxide 29 mmol/L (22-30); Chloride 103 mmol/L (98-107); Glucose 164 mg/dL (74-99); Non-African American GFR(CKD) >90 (>60 ml/min/1.73 sqM); Potassium 3.8 mmol/L (3.5-5.1); Sodium 138 mmol/L (137-145)
--- NOTE | 2021-08-03 11:59 | P.PN ---
Subjective Progress Note Date: 08/03/21 This is a pleasant 71-year-old male patient with a known history of hypertension, obesity, chronic anemia, recurrent left-sided pleural effusion with previous thoracocentesis. He had subsequently undergone a left thoracotomy on 07/21/2021 with left pleural and lung biopsy now found to be positive for me sothelioma. He was discharged on 07/24/2021. He presented to the emergency room yesterday with worsening shortness of breath. Chest x-ray revealed worsening opacification of the left hemithorax due to acute atelectasis/airspace disease and enlarging pleural effusion. CT angiogram ruled out pulmonary embolism. There was interval worsening left-sided pleural effusion with worsening lobulated pleural thickening of the left pleural space. There is new intralobular septal thickening suggestive of new pulmonary edema. New cavitary lesions could represent necrotizing pneumonia versus necrotic mass. Increasing mediastinal lymphadenopathy along with left internal mammary lymph node most likely secondary to metastatic lymphadenopathy. Ultrasound of the left chest revealed a pocket size of 6.3 cm. Dopplers of the lower extremity were negative for DVT. White count 18.7. Hemoglobin 8.1. Platelets 606. D-dimer 4.25. Sodium 135. Potassium 3.7. BUN 18. Creatinine 0.9. Glucose 178. AST 60. ALT 34. Her BNP 1500. He's been initiated on DuoNeb inhalations. Heparin for DVT prophylaxis. He is seen today in consultation on the selective care unit. He is currently sitting up in bed. Awake and alert in no acute distress. He is maintaining O2 saturations in the mid 90s on 3 L/m per nasal cannula. He has been informed of his diagnosis of mesothelioma. Oncology consult pending. The patient is seen today 08/01/2021 in follow-up on the selective care unit. He is currently sitting up in bed. Awake and alert in no acute distress. He is maintaining O2 saturation in the 90s on 2 L/m per nasal cannula. He is afebrile. Hemodynamically stable. Blood culture reveals no growth. White count 15.8. Hemoglobin 7.3. Platelet count 539. Sodium 136. Potassium 3.7. BUN 14. Creatinine 0.81. He is continued on DuoNeb inhalations. Remains on antibiotics in form of Zosyn. Heparin for DVT prophylaxis. , I'm seeing the patient for a follow-up. He is short of breath and this is related to his malignant mesothelioma that was confirmed recently for thoracoscopy. I reviewed the repeat CAT scan of the chest that was done during this current admission. It is consistent with malignant mesothelioma. There is interval worsening in the thickness and the extent of the pleural rind that's around the left lung. There is also a small amount of pleural fluid collecting around the pleural surface which is loculated and this has been drained on multiple occasions and it is a bloody effusion. Cavitary lesions were also described in the left lung which obviously raises the concern for underlying necrotizing pneumonia versus malignancy itself. There is also increasing mediastinal lymphadenopathy most likely malignant. Right lung is essentially clear at this point in time. Based on all this, there is a high likelihood that the patient is having a rapid progression of his underlying malignant mesothelioma. He is chronically anemic and his hemoglobin is also has at 7.7 which is also contributing to shortness of breath. Oxygen requirements are 2 L per minute nasal cannula and the patient's pro calcitonin level at the time of admission was 0.6 and he was covered empirically with IV Zosyn. 08/03/2021, the patient is somewhat lethargic, on and off confused, at times restless in bed, it other times she answers appropriately. As such, his mentation is fluctuating. His breathing is slightly labored and the patient is currently on 6 L of oxygen by nasal cannula. I came to find other the patient was getting progressively more hypoxic and short of breath and agitated yesterday. He was quite confused. He was brought up to 6 L of O2 nasal cannula. He also became hypertensive. He was given IV Ativan and IV hydralazine. A CAT scan of the brain was done yesterday showed meningiomas , no acute abnormalities noted. He was given As mentioned earlier, the patient has a malignant mesothelioma. The patient also has developed significant thickening and the pleural rind around the left lung with some small loculated left-sided pleural effusions. There is also cavitation in the left lung in addition to mediastinal lymphadenopathy. Disease has progressed accordingly. For now, the patient is functionally doing very poor.. He seems to be quite weak and progressively getting more debilitated.The blood work shows a white cell count of 19.9 with a hemoglobin of 7.8 and the platelet count of 602. The blood gases from yesterday showed a pH of 7.46 with a pCO2 of 40 and pO2 of 76. Rest of the electrolytes are all within normal limits. The chest x-ray showing almost complete opacification of left hemithorax with extensive pulmonary infiltration. No progression on the right side of the lung. No right-sided pleural effusion. The patient has slightly improved with elevation in the lateral aspect of the left upper and midlung zone. Objective - Vital Signs Vital signs: Vital Signs Temp 97.5 F L 08/03/21 11:10 Pulse 112 H 08/03/21 11:10 Resp 24 08/03/21 11:10 BP 141/75 08/03/21 11:10 Pulse Ox 96 08/03/21 11:10 FiO2 Intake & Output 08/02/21 08/03/21 08/03/21 18:59 06:59 18:59 Intake Total 690 250 100 Output Total 525 Balance 165 250 100 Intake: IV 130 .9 @ 10 120 Invasive Line 1 10 Intake, IV Titration 200 100 Amount Piperacillin-Tazobactam 3 200 100 .375 gm In Sodium Chloride 0.9% 100 ml @ 25 mls/hr IVPB Q8HR [facility] Rx# :[id number] Oral 360 250 Output: Urine 525 Other: Voiding Method Urinal Diaper Diaper Incontinent Incontinent # Voids 1 2 # Bowel Movements 1 - Exam GENERAL EXAM: Alert, pleasant 71-year-old male patient, on 6 L nasal cannula, comfortable in no apparent distress. HEAD: Normocephalic. EYES: Normal reaction of pupils, equal size. NOSE: Clear with pink turbinates. THROAT: No erythema or exudates. NECK: No masses, no JVD. CHEST: No chest wall deformity. LUNGS: Equal air entry with crackles in the left lung base, diminished. CVS: S1 and S2 normal with no audible murmur, regular rhythm. ABDOMEN: No hepatosplenomegaly, normal bowel sounds, no guarding or rigidity. SPINE: No scoliosis or deformity SKIN: No rashes CENTRAL NERVOUS SYSTEM: No focal deficits, tone is normal in all 4 extremities. EXTREMITIES: There is no peripheral edema. No clubbing, no cyanosis. Peripheral pulses are intact. - Labs CBC & Chem 7: 08/03/21 10:29 08/03/21 10:29 Labs: Abnormal Lab Results - Last 24 Hours (Table) 08/03/21 08/03/21 08/03/21 Range/Units 07:16 10:29 10:29 WBC 19.9 H (3.8-10.6) k/uL RBC 3.12 L (4.30-5.90) m/uL Hgb 7.8 L (13.0-17.5) gm/dL Hct 26.0 L (39.0-53.0) % MCH 24.9 L (25.0-35.0) pg MCHC 29.9 L (31.0-37.0) g/dL RDW 17.1 H (11.5-15.5) % Plt Count 602 H (150-450) k/uL Neutrophils # 18.7 H (1.3-7.7) k/uL Lymphocytes # 0.6 L (1.0-4.8) k/uL ABG pH 7.46 H (7.35-7.45) ABG pO2 76 L (83-108) mmHg ABG HCO3 29 H (21-25) mmol/L ABG Total CO2 30 H (19-24) mmol/L Glucose 164 H (74-99) mg/dL Calcium 7.7 L (8.4-10.2) mg/dL Microbiology - Last 24 Hours (Table) 07/30/21 18:00 Blood Culture - Preliminary Blood No Growth after 72 hours Assessment and Plan Plan: Acute hypoxemic respiratory failure secondary to increasing left sided recurrent pleural effusion and atelectasis secondary to mesothelioma the left lung and pleural rind diagnosed by wedge biopsy on 07/21/2021, along with progressive worsening and hypoxemia and the patient is currently on 6 L of O2 nasal cannula. There is significant opacification of the left lung which is a combination of tumor progression, mesothelioma, and possibly a superinfection with a pneumonia. Leukocytosis secondary to suspected postobstructive pneumonia, currently on Zosyn, pro-calcitonin 0.61 Recurrent left-sided pleural effusion secondary to above Altered mental status Obesity Hypertension Chronic anemia, current hemoglobin 7.3 Plan: Patient has showed progressive decline in his condition. He is more hypoxic, is more short of breath, is mentally altered, he is on 6 L of O2 nasal cannula. He is moving all 4 extremities and his neurologic exam is nonfocal. CAT scan of the brain is not showing any acute abnormalities. He remains on a combination of bronchodilators, steroids and antibiotics. Nevertheless, there is a high likelihood that he is having progressive worsening of his mesothelioma with ongoing respiratory compromise. I reviewed the CAT scan images and his presentation with worsening shortness of breath is related to progression of his underlying mesothelioma. The cavities in the left lung is probably a necrotic tumor and the patient has reactive lymphadenopathy in addition to some chapped left-sided pleural effusion, small in size. Note that at the time of his thoracoscopy, the patient did not have any significant pleural fluid accumulation. As such, the chest tube was removed as output following the surgery/thoracoscopy was minimal from the left-sided aj st tube. As such, this pleural effusion is trapped in the small and there is no value and draining the pleural fluid/that the patient is not going to have any the expansion of the left lung. Thyroid is spoken with his oncologist. He is to be considered for immunotherapy if his condition stabilizes. Pro-calcitonin 0.61 Absolutely no role for Pleurx catheter insertion We will continue to follow and make further recommendations based on his clinical status Prognosis remains extremely poor due to his underlying malignancy. Strongly encouraged to change his CODE STATUS to DNR/DNI. We'll try to get the child to the family and discussed this.
[2021-08-03] MEDS: IPRATROPIUM-ALBUTEROL 3 ML NEB INHALATION PRN ×2 (16:21→19:42)
--- NOTE | 2021-08-03 17:43 | P.PN ---
Subjective Progress Note Date: 08/03/21 Principal diagnosis: mesothelioma, significant SOB In f/u today pt was being evaluated by Pulmonary-he became very confused overnight. He cont to have SOB at rest, he is not able to move much without resp distress. Objective - Vital Signs Vital signs: Vital Signs Temp 97.5 F L 08/03/21 11:10 Pulse 112 H 08/03/21 11:10 Resp 24 08/03/21 11:10 BP 141/75 08/03/21 11:10 Pulse Ox 96 08/03/21 11:10 FiO2 Intake & Output 08/02/21 08/03/21 08/03/21 18:59 06:59 18:59 Intake Total 690 250 100 Output Total 525 Balance 165 250 100 Intake: IV 130 .9 @ 10 120 Invasive Line 1 10 Intake, IV Titration 200 100 Amount Piperacillin-Tazobactam 3 200 100 .375 gm In Sodium Chloride 0.9% 100 ml @ 25 mls/hr IVPB Q8HR [facility] Rx# :[id number] Oral 360 250 Output: Urine 525 Other: Voiding Method Urinal Diaper Diaper Incontinent Incontinent # Voids 1 2 # Bowel Movements 1 - Constitutional General appearance: Present: cooperative, mild distress, obese - EENT Eyes: Present: anicteric sclerae ENT: Present: hearing grossly normal - Respiratory Respiratory: right: diminished, left: other (near absent breath sounds) - Cardiovascular Rhythm: regular Heart sounds: normal: S1, S2 - Peripheral edema leg Peripheral Edema: bilateral: None - Gastrointestinal General gastrointestinal: Present: normal bowel sounds, soft - Neurologic Neurologic Comment(s): able to move extremities spontaneously - Musculoskeletal Musculoskeletal: Present: generalized weakness - Psychiatric Psychiatric: Present: A&O x's 3, appropriate affect - Labs CBC & Chem 7: 08/03/21 10:29 08/03/21 10:29 Labs: Abnormal Lab Results - Last 24 Hours (Table) 08/03/21 08/03/21 08/03/21 Range/Units 07:16 10:29 10:29 WBC 19.9 H (3.8-10.6) k/uL RBC 3.12 L (4.30-5.90) m/uL Hgb 7.8 L (13.0-17.5) gm/dL Hct 26.0 L (39.0-53.0) % MCH 24.9 L (25.0-35.0) pg MCHC 29.9 L (31.0-37.0) g/dL RDW 17.1 H (11.5-15.5) % Plt Count 602 H (150-450) k/uL Neutrophils # 18.7 H (1.3-7.7) k/uL Lymphocytes # 0.6 L (1.0-4.8) k/uL ABG pH 7.46 H (7.35-7.45) ABG pO2 76 L (83-108) mmHg ABG HCO3 29 H (21-25) mmol/L ABG Total CO2 30 H (19-24) mmol/L Glucose 164 H (74-99) mg/dL Calcium 7.7 L (8.4-10.2) mg/dL Microbiology - Last 24 Hours (Table) 07/30/21 18:00 Blood Culture - Preliminary Blood No Growth after 72 hours - Imaging and Cardiology Chest x-ray: report reviewed Abdominal x-ray: report reviewed CT Scan - head: report reviewed Assessment and Plan (1) Mesothelioma of left lung Current Visit: Yes Status: Acute Priority: High Code(s): C45.7 - MESOTHELIOMA OF OTHER SITES SNOMED Code(s): 770915152 (2) Dyspnea Current Visit: Yes Status: Acute Priority: High Code(s): R06.00 - DYSPNEA, UNSPECIFIED SNOMED Code(s): 458330761 Plan: Discussed with pt daughter and girlfriend. We summarized patient's hospitalization,reviewed diagnosis, stage, prognosis, treatment options, life expectancy with and without treatment, concerns for treatment not being able to get ahead of the cancer, CODE STATUS and comfort measures and hospice philosop hy. All questions were answered to the best of my ability. Patient has 2 more daughters coming in from out of town tomorrow. We will remain available for any additional questions or concerns. Did encourage daughter and girlfriend to discuss with patient and make a decision about CODE STATUS. Time with Patient: Greater than 30
[2021-08-04 07:23] LABS: Anisocytosis Slight; Basophils % (A) 0 %; Eosinophils % (A) 0 %; HCT 26.6 % (39.0-53.0); HGB 7.5 gm/dL (13.0-17.5); Hypochromasia Marked; Lymphocytes # (A) 0.9 k/uL (1.0-4.8); Lymphocytes % (A) 4 %; MCH 23.8 pg (25.0-35.0); MCHC 28.2 g/dL (31.0-37.0); MCV 84.5 fL (80.0-100.0); Mean Platelet Volume 6.5; Monocytes # (A) 0.4 k/uL (0-1.0); Monocytes % (A) 2 %; Neutrophils # (A) 18.6 k/uL (1.3-7.7); Neutrophils % (A) 93 %; Platelet Count 596 k/uL (150-450); RBC 3.15 m/uL (4.30-5.90); RDW 16.8 % (11.5-15.5)
[2021-08-04 07:48] LABS: African American GFR (CKD) >90 (>60 ml/min/1.73 sqM); Anion Gap 7 mmol/L; Blood Urea Nitrogen 19 mg/dL (9-20); Carbon Dioxide 28 mmol/L (22-30); Chloride 104 mmol/L (98-107); Glucose 140 mg/dL (74-99); Non-African American GFR(CKD) >90 (>60 ml/min/1.73 sqM); Potassium 4.2 mmol/L (3.5-5.1); Sodium 139 mmol/L (137-145)
[2021-08-04] MEDS: PIPERACILLIN-TAZOBACTAM 3.375 GM in SODIUM CHLORIDE 0.9% 100 ML IVPB SCH ×3 (09:41→23:20)
[2021-08-04] MEDS: FAMOTIDINE 20 MG/2 ML VIAL IV SCH ×2 (09:42→20:10)
[2021-08-04] MEDS: HEPARIN SODIUM,PORCINE/PF 5,000 UNIT/0.5 ML SYRINGE SQ SCH ×2 (09:42→20:10)
[2021-08-04] MEDS: methylPREDNISolone SOD SUCCI 40 MG/ML 1 ML VIAL IV SCH ×2 (09:42→20:10)
[2021-08-04] MEDS: METOPROLOL TARTRATE 25 MG TAB PO SCH ×2 (09:42→20:09)
--- NOTE | 2021-08-04 10:56 | P.PN ---
Subjective Progress Note Date: 08/03/21 This is a pleasant 71 years old male with past medical history of COPD, Hypertension. Had left pleural effusion on 06/08/21, s/p left thoracentesis, has O2 @ 2L, using prn. Presents with worsening dyspnea over the last few days. Patient told me since June 08 is starts having dyspnea and since then is getting progressively worse. Occasional dry cough, no chest pain, no diarrhea or vomiting. No dizziness. Last week he had Left thoracotomy the left pleural and lung biopsy, there is surgical wound with ender, it looks clean and closed, there is 2 puncture wounds healing with no evidence of infection. No urinary complaints. Patient has memory problems and could not remember all the details. However he says that he having been started chemotherapy and he thinks he is going to see a doctor whom he believes his oncologist. On admission patient is tachypneic and tachycardic, blood pressure is 117/79 CBC showing leukocytosis of 18.7 K, it was 18.9 last month. INR is 1.1. D-dimer elevated 4.2. BMP is unremarkable. Liver enzymes not elevated. ProBNP is 1500 and troponin negative less than 0.02. EKG showing sinus tachycardia with PVCs rate of 125. No significant ST-T changes CTA of the chest: No pulmonary embolism. Worsening left pleural effusion. New cavitary lesion of the left lung which could represent necrotizing pneumonia versus necrotic mass. Mediastinal lymphadenopathy 08/01/2021 Patient remains tachypneic and saturation actually is better than yesterday. His breathing difficulty feels better today. He is saturating 97% on 2 L oxygen via nasal cannula He has this leukocytosis and hemoglobin dropped it 0.1 down to 7.3, could be elements of hemodilution but we will need to keep his hemoglobin closely. His new cavitary lesion in the left flank most likely infection procalcitonin elevated at 0.61. Patient is currently on Zosyn 08/02/2021 Patient is currently lying in bed. Awake and alert. Was admitted to hospital due to shortness of breath and mesothelioma. CT angiogram of the chest on admission showed no evidence of PE. Interval worsening left-sided pleural effusion with worsening lobulated pleural thickening of the left pleural space. There is new and probably lobular septal thickening suggestive of new pulmonary edema. Correlate with recent biopsy results and clinical picture for infection versus malignancy. New cavitary lesion seen from 06/24/2021 and the left lung which could represent necrotizing pneumonia versus necrotizing mass which is felt to be less likely given the short interval. Increasing mediastinal lymphadenopathy along with left internal mammary lymph node could be reactive versus secondary to metastatic lymphadenopathy. Pos ttraumatic changes of the left soft tissues with soft tissue now within the left lateral sidewall. Laboratory data showed WBC 16.9 hemoglobin 7.7 and platelets 531, sodium 137 potassium 3.921-2 bicarb is 29 BUN 13 and creatinine 0.85, albumin 2.4. Pro- calcitonin was 0.61 on 07/31/2021. Patient remains on antibiotic from Zosyn. 08/03/2021 Patient is currently lethargic and drowsy and confused. Overnight patient became more short of breath and confused and became more hypoxic. Patient was given IV Ativan and IV hydralazine due to elevated blood pressure. Currently patient is requiring oxygen at 6 L per nasal cannula. Patient was also started on methylprednisolone 40 mg every 8. Yesterday morning patient had CT of the head showed no acute intracranial abnormality seen. Couple extra axial lesion superiorly along the parasagittal midline measuring 1.1 cm in the right and 2 cm in the left likely meningiomas. Consider outpatient referral to neurosurgery for any potential follow-up. Laboratory data showed WBC 19.9 hemoglobin 7.8 and platelets 602 sodium 138 potassium 3.8 chloride 103 bicarb 29, BUN 14 and creatinine 0.77 calcium 7.7, albumin 2.4 Patient is on antibiotics in the form of Zosyn and DuoNeb's. Pulmonary and oncology is on board. Current medications reviewed. Objective - Vital Signs Vital signs: Vital Signs Temp 97.5 F L 08/03/21 11:10 Pulse 112 H 08/03/21 11:10 Resp 24 08/03/21 11:10 BP 141/75 08/03/21 11:10 Pulse Ox 96 08/03/21 11:10 FiO2 Intake & Output 08/02/21 08/03/21 08/03/21 18:59 06:59 18:59 Intake Total 690 250 110 Output Total 525 Balance 165 250 110 Intake: IV 130 10 .9 @ 10 120 Invasive Line 1 10 Invasive Line 5 10 Intake, IV Titration 200 100 Amount Piperacillin-Tazobactam 3 200 100 .375 gm In Sodium Chloride 0.9% 100 ml @ 25 mls/hr IVPB Q8HR [facility] Rx# :[id number] Oral 360 250 Output: Urine 525 Other: Voiding Method Urinal Diaper Diaper Incontinent Incontinent # Voids 1 2 # Bowel Movements 1 - Exam - Exam GENERAL: The patient is alert and oriented x3, not in any acute distress. Well developed, well nourished. HEENT: Pupils are round and equally reacting to light. EOMI. No scleral icterus. No conjunctival pallor. Normocephalic, atraumatic. No pharyngeal erythema. No thyromegaly. CARDIOVASCULAR: S1 and S2 present. No murmurs, rubs, or gallops. -PULMONARY: Chest is clear to auscultation, no wheezing or crackles. Decreased breath sounds on the left side with some crepitation, bibasilar wheezing. ABDOMEN: Soft, nontender, nondistended, normoactive bowel sounds. No palpable organomegaly. MUSCULOSKELETAL: No joint swelling or deformity. EXTREMITIES: No cyanosis, clubbing, or pedal edema. NEUROLOGICAL: Gross neurological examination did not reveal any focal deficits. SKIN: No rashes. no petechiae. - Labs CBC & Chem 7: 08/04/21 06:46 08/04/21 06:46 Labs: Abnormal Lab Results - Last 24 Hours (Table) 08/03/21 08/03/21 08/03/21 Range/Units 07:16 10:29 10:29 WBC 19.9 H (3.8-10.6) k/uL RBC 3.12 L (4.30-5.90) m/uL Hgb 7.8 L (13.0-17.5) gm/dL Hct 26.0 L (39.0-53.0) % MCH 24.9 L (25.0-35.0) pg MCHC 29.9 L (31.0-37.0) g/dL RDW 17.1 H (11.5-15.5) % Plt Count 602 H (150-450) k/uL Neutrophils # 18.7 H (1.3-7.7) k/uL Lymphocytes # 0.6 L (1.0-4.8) k/uL ABG pH 7.46 H (7.35-7.45) ABG pO2 76 L (83-108) mmHg ABG HCO3 29 H (21-25) mmol/L ABG Total CO2 30 H (19-24) mmol/L Glucose 164 H (74-99) mg/dL Calcium 7.7 L (8.4-10.2) mg/dL Microbiology - Last 24 Hours (Table) 07/30/21 18:00 Blood Culture - Preliminary Blood No Growth after 72 hours Assessment and Plan Assessment: Acute hypoxic respiratory failure secondary to pleural effusion with underlying mesothelioma. Currently on oxygen at 6 L via nasal cannula. Possible underlying pneumonia/post obstructive pneumonia. Pulmonary Mesothelioma Recurrent and worsening left pleural effusion Left lung Cavitary lesion, necrotizing pneumonia versus metastasis is suspected (less likely) Elevated d-dimer, with negative PE on CTA of the chest chronic leukocytosis Chronic hypoxic respiratory failure DVT prophylaxis. Plan: This is a pleasant 71 is a male who presents with pleural effusion with history of lung cancer suspected, with cavitary lesions and the ventricular cavity. Continue with Zosyn , pulmonary team is following.. Oncology is on board. Labs and medication were reviewed.. Monitor lytes and vitals. DVT and GI prophylaxis. Further recommendations depends on the clinical course of the patient DVT prophylaxis: Subcutaneous heparin GI Prophylaxis: Pepcid PT/OT: Pending Prognosis is poor at this time. Time with Patient: Greater than 30
--- NOTE | 2021-08-04 11:29 | P.PN ---
Subjective Progress Note Date: 08/04/21 This is a pleasant 71-year-old male patient with a known history of hypertension, obesity, chronic anemia, recurrent left-sided pleural effusion with previous thoracocentesis. He had subsequently undergone a left thoracotomy on 07/21/2021 with left pleural and lung biopsy now found to be positive for me sothelioma. He was discharged on 07/24/2021. He presented to the emergency room yesterday with worsening shortness of breath. Chest x-ray revealed worsening opacification of the left hemithorax due to acute atelectasis/airspace disease and enlarging pleural effusion. CT angiogram ruled out pulmonary embolism. There was interval worsening left-sided pleural effusion with worsening lobulated pleural thickening of the left pleural space. There is new intralobular septal thickening suggestive of new pulmonary edema. New cavitary lesions could represent necrotizing pneumonia versus necrotic mass. Increasing mediastinal lymphadenopathy along with left internal mammary lymph node most likely secondary to metastatic lymphadenopathy. Ultrasound of the left chest revealed a pocket size of 6.3 cm. Dopplers of the lower extremity were negative for DVT. White count 18.7. Hemoglobin 8.1. Platelets 606. D-dimer 4.25. Sodium 135. Potassium 3.7. BUN 18. Creatinine 0.9. Glucose 178. AST 60. ALT 34. Her BNP 1500. He's been initiated on DuoNeb inhalations. Heparin for DVT prophylaxis. He is seen today in consultation on the selective care unit. He is currently sitting up in bed. Awake and alert in no acute distress. He is maintaining O2 saturations in the mid 90s on 3 L/m per nasal cannula. He has been informed of his diagnosis of mesothelioma. Oncology consult pending. The patient is seen today 08/01/2021 in follow-up on the selective care unit. He is currently sitting up in bed. Awake and alert in no acute distress. He is maintaining O2 saturation in the 90s on 2 L/m per nasal cannula. He is afebrile. Hemodynamically stable. Blood culture reveals no growth. White count 15.8. Hemoglobin 7.3. Platelet count 539. Sodium 136. Potassium 3.7. BUN 14. Creatinine 0.81. He is continued on DuoNeb inhalations. Remains on antibiotics in form of Zosyn. Heparin for DVT prophylaxis. , I'm seeing the patient for a follow-up. He is short of breath and this is related to his malignant mesothelioma that was confirmed recently for thoracoscopy. I reviewed the repeat CAT scan of the chest that was done during this current admission. It is consistent with malignant mesothelioma. There is interval worsening in the thickness and the extent of the pleural rind that's around the left lung. There is also a small amount of pleural fluid collecting around the pleural surface which is loculated and this has been drained on multiple occasions and it is a bloody effusion. Cavitary lesions were also described in the left lung which obviously raises the concern for underlying necrotizing pneumonia versus malignancy itself. There is also increasing mediastinal lymphadenopathy most likely malignant. Right lung is essentially clear at this point in time. Based on all this, there is a high likelihood that the patient is having a rapid progression of his underlying malignant mesothelioma. He is chronically anemic and his hemoglobin is also has at 7.7 which is also contributing to shortness of breath. Oxygen requirements are 2 L per minute nasal cannula and the patient's pro calcitonin level at the time of admission was 0.6 and he was covered empirically with IV Zosyn. 08/03/2021, the patient is somewhat lethargic, on and off confused, at times restless in bed, it other times she answers appropriately. As such, his mentation is fluctuating. His breathing is slightly labored and the patient is currently on 6 L of oxygen by nasal cannula. I came to find other the patient was getting progressively more hypoxic and short of breath and agitated yesterday. He was quite confused. He was brought up to 6 L of O2 nasal cannula. He also became hypertensive. He was given IV Ativan and IV hydralazine. A CAT scan of the brain was done yesterday showed meningiomas , no acute abnormalities noted. He was given As mentioned earlier, the patient has a malignant mesothelioma. The patient also has developed significant thickening and the pleural rind around the left lung with some small loculated left-sided pleural effusions. There is also cavitation in the left lung in addition to mediastinal lymphadenopathy. Disease has progressed accordingly. For now, the patient is functionally doing very poor.. He seems to be quite weak and progressively getting more debilitated.The blood work shows a white cell count of 19.9 with a hemoglobin of 7.8 and the platelet count of 602. The blood gases from yesterday showed a pH of 7.46 with a pCO2 of 40 and pO2 of 76. Rest of the electrolytes are all within normal limits. The chest x-ray showing almost complete opacification of left hemithorax with extensive pulmonary infiltration. No progression on the right side of the lung. No right-sided pleural effusion. The patient has slightly improved with elevation in the lateral aspect of the left upper and midlung zone. 08/04/2021, the patient is on 4 L of oxygen by nasal cannula. He is slightly more oriented and awake compared to yesterday. Yesterday he was having significant mental status change and this morning he seems to be much more appropriate. Is following commands and answering questions. He is breathing is labored and the patient is unable to do any form of activity without getting short of breath. Chest x-rays showing complete opacification of the left lung. Based on an elevated pro calcitonin level, we suspected an infection and is currently covered with IV Zosyn. As stated, no role for Pleurx catheter insertion. No role for thoracentesis. The patient's pro calcitonin level was at 0.6. White cell count is at 19. I to normal. Prognosis extremely poor. Family from out of town is arriving today to the hospital. He is a DNR/DNI CODE STATUS. His oral intake is minimal at this point in time. He continues to be in bed lying on his left side which makes him more comfortable. No issues with pain. No focal neurological deficits. He has generalized global weakness. Objective - Vital Signs Vital signs: Vital Signs Temp 98.1 F 08/04/21 08:00 Pulse 99 08/04/21 08:00 Resp 20 08/04/21 08:00 BP 139/72 08/04/21 08:00 Pulse Ox 95 08/04/21 08:00 FiO2 Intake & Output 08/03/21 08/04/21 08/04/21 18:59 06:59 18:59 Intake Total 450 Output Total 300 Balance 450 -300 Intake: IV 130 .9 @ 10 120 Invasive Line 5 10 Intake, IV Titration 200 Amount Piperacillin-Tazobactam 3 200 .375 gm In Sodium Chloride 0.9% 100 ml @ 25 mls/hr IVPB Q8HR [facility] Rx# :[id number] Oral 120 Output: Urine 300 Other: Voiding Method Diaper Diaper Diaper Incontinent Incontinent Incontinent # Voids 2 1 - Exam GENERAL EXAM: Alert, pleasant 71-year-old male patient, on 4 L nasal cannula, comfortable in no apparent distress. HEAD: Normocephalic. EYES: Normal reaction of pupils, equal size. NOSE: Clear with pink turbinates. THROAT: No erythema or exudates. NECK: No masses, no JVD. CHEST: No chest wall deformity. LUNGS: Equal air entry with crackles in the left lung base, diminished. CVS: S1 and S2 normal with no audible murmur, regular rhythm. ABDOMEN: No hepatosplenomegaly, normal bowel sounds, no guarding or rigidity. SPINE: No scoliosis or deformity SKIN: No rashes CENTRAL NERVOUS SYSTEM: No focal deficits, tone is normal in all 4 extremities. EXTREMITIES: There is no peripheral edema. No clubbing, no cyanosis. Per ipheral pulses are intact. - Labs CBC & Chem 7: 08/04/21 06:46 08/04/21 06:46 Labs: Abnormal Lab Results - Last 24 Hours (Table) 08/04/21 08/04/21 Range/Units 06:46 06:46 WBC 20.0 H (3.8-10.6) k/uL RBC 3.15 L (4.30-5.90) m/uL Hgb 7.5 L (13.0-17.5) gm/dL Hct 26.6 L (39.0-53.0) % MCH 23.8 L (25.0-35.0) pg MCHC 28.2 L (31.0-37.0) g/dL RDW 16.8 H (11.5-15.5) % Plt Count 596 H (150-450) k/uL Neutrophils # 18.6 H (1.3-7.7) k/uL Lymphocytes # 0.9 L (1.0-4.8) k/uL Glucose 140 H (74-99) mg/dL Calcium 8.0 L (8.4-10.2) mg/dL Microbiology - Last 24 Hours (Table) 07/30/21 18:00 Blood Culture - Preliminary Blood No Growth after 96 hours Assessment and Plan Plan: Acute hypoxemic respiratory failure secondary to increasing left sided recurrent pleural effusion and atelectasis secondary to mesothelioma the left lung and pleural rind diagnosed by wedge biopsy on 07/21/2021, along with progressive worsening and hypoxemia and the patient is currently on 4 L of O2 nasal cannula. There is significant opacification of the left lung which is a combination of tumor progression, mesothelioma, and possibly a superinfection with a pneumonia. Leukocytosis secondary to suspected postobstructive pneumonia, currently on Zosyn, pro-calcitonin 0.61 Recurrent left-sided pleural effusion secondary to above Altered mental status Obesity Hypertension Chronic anemia, current hemoglobin 7.3 Plan: Clinically, the patient is slightly improved compared to yesterday and the nata whitten's history much more alert and communicating and somewhat slightly less short of breath compared to yesterday. Nevertheless, the chest x-ray is unchanged and the patient's complete whitening gout and opacification of the left lung. His baseline performance and functional status progressed and he is currently in a very poor condition. Over time, the patient has become more hypoxic and currently is on 4 L O2 nasal cannula. CAT scan of the brain is not showing any acute abnormalities. Continue bronchodilators, steroids and antibiotics. Nevertheless, there is a high likelihood that he is having progressive worsening of his mesothelioma with ongoing respiratory compromise. I reviewed the CAT scan images and his presentation with worsening shortness of breath is related to progression of his underlying mesothelioma. The cavities in the left lung is probably a necrotic tumor and the patient has reactive lymphadenopathy in addition to some chapped left-sided pleural effusion, small in size. Note that at the time of his thoracoscopy, the patient did not have any significant pleural fluid accumulation. As such, the chest tube was removed as output following the surgery/thoracoscopy was minimal from the left-sided chest tube. As such, this pleural effusion is trapped in the small and there is no value and draining the pleural fluid/that the patient is not going to have any the expansion of the left lung. Pro-calcitonin 0.61 Absolutely no role for Pleurx catheter insertion Not strong enough or functional left received any form of treatment Prognosis remains extremely poor due to his underlying malignancy. Strongly encouraged to change his CODE STATUS to DNR/DNI. Consider hospice care.
[2021-08-04] MEDS: IPRATROPIUM-ALBUTEROL 3 ML NEB INHALATION PRN (15:51)
--- NOTE | 2021-08-04 18:36 | P.PN ---
Subjective Progress Note Date: 08/04/21 Principal diagnosis: mesothelioma, significant SOB In f/u today patient appears to be comfortable on his left side. Objective - Vital Signs Vital signs: Vital Signs Temp 98.1 F 08/04/21 08:00 Pulse 101 H 08/04/21 16:03 Resp 22 08/04/21 16:00 BP 110/67 08/04/21 16:00 Pulse Ox 96 08/04/21 16:00 FiO2 Intake & Output 08/03/21 08/04/21 08/04/21 18:59 06:59 18:59 Intake Total 450 240 Output Total 300 200 Balance 450 -300 40 Intake: IV 130 .9 @ 10 120 Invasive Line 5 10 Intake, IV Titration 200 Amount Piperacillin-Tazobactam 3 200 .375 gm In Sodium Chloride 0.9% 100 ml @ 25 mls/hr IVPB Q8HR [facility] Rx# :[id number] Oral 120 240 Output: Urine 300 200 Other: Voiding Method Diaper Diaper Diaper Incontinent Incontinent Incontinent # Voids 2 1 - Constitutional General appearance: Present: average body habitus, cooperative, mild distress - Respiratory Details: respirations mildly labored at rest - Labs CBC & Chem 7: 08/04/21 06:46 08/04/21 06:46 Labs: Abnormal Lab Results - Last 24 Hours (Table) 08/04/21 08/04/21 08/04/21 Range/Units 06:46 06:46 06:46 WBC 20.0 H (3.8-10.6) k/uL RBC 3.15 L (4.30-5.90) m/uL Hgb 7.5 L (13.0-17.5) gm/dL Hct 26.6 L (39.0-53.0) % MCH 23.8 L (25.0-35.0) pg MCHC 28.2 L (31.0-37.0) g/dL RDW 16.8 H (11.5-15.5) % Plt Count 596 H (150-450) k/uL Neutrophils # 18.6 H (1.3-7.7) k/uL Lymphocytes # 0.9 L (1.0-4.8) k/uL Glucose 140 H (74-99) mg/dL Calcium 8.0 L (8.4-10.2) mg/dL Procalcitonin 0.88 H (0.02-0.09) ng/mL Microbiology - Last 24 Hours (Table) 07/30/21 18:00 Blood Culture - Preliminary Blood No Growth after 96 hours Assessment and Plan (1) Mesothelioma of left lung Current Visit: Yes Status: Acute Priority: High Code(s): C45.7 - MESOTHELIOMA OF OTHER SITES SNOMED Code(s): 875541525 (2) Dyspnea Current Visit: Yes Status: Acute Priority: High Code(s): R06.00 - DYSPNEA, UNSPECIFIED SNOMED Code(s): 874236110 Plan: Met with the patient's girlfriend. Answered some outlying questions that she had. Confirmed that family is coming up to meet today and see the patient. Plans are to pursue hospice care at a facility.
[2021-08-05] MEDS: FAMOTIDINE 20 MG/2 ML VIAL IV SCH ×2 (09:35→20:20)
[2021-08-05] MEDS: methylPREDNISolone SOD SUCCI 40 MG/ML 1 ML VIAL IV SCH (09:35)
[2021-08-05] MEDS: METOPROLOL TARTRATE 25 MG TAB PO SCH ×2 (09:36→20:20)
[2021-08-05] MEDS: HEPARIN SODIUM,PORCINE/PF 5,000 UNIT/0.5 ML SYRINGE SQ SCH ×2 (09:36→20:20)
[2021-08-05] MEDS: PIPERACILLIN-TAZOBACTAM 3.375 GM in SODIUM CHLORIDE 0.9% 100 ML IVPB SCH ×3 (09:36→22:53)
--- NOTE | 2021-08-05 11:19 | P.PN ---
Subjective Progress Note Date: 08/05/21 This is a pleasant 71-year-old male patient with a known history of hypertension, obesity, chronic anemia, recurrent left-sided pleural effusion with previous thoracocentesis. He had subsequently undergone a left thoracotomy on 07/21/2021 with left pleural and lung biopsy now found to be positive for me sothelioma. He was discharged on 07/24/2021. He presented to the emergency room yesterday with worsening shortness of breath. Chest x-ray revealed worsening opacification of the left hemithorax due to acute atelectasis/airspace disease and enlarging pleural effusion. CT angiogram ruled out pulmonary embolism. There was interval worsening left-sided pleural effusion with worsening lobulated pleural thickening of the left pleural space. There is new intralobular septal thickening suggestive of new pulmonary edema. New cavitary lesions could represent necrotizing pneumonia versus necrotic mass. Increasing mediastinal lymphadenopathy along with left internal mammary lymph node most likely secondary to metastatic lymphadenopathy. Ultrasound of the left chest revealed a pocket size of 6.3 cm. Dopplers of the lower extremity were negative for DVT. White count 18.7. Hemoglobin 8.1. Platelets 606. D-dimer 4.25. Sodium 135. Potassium 3.7. BUN 18. Creatinine 0.9. Glucose 178. AST 60. ALT 34. Her BNP 1500. He's been initiated on DuoNeb inhalations. Heparin for DVT prophylaxis. He is seen today in consultation on the selective care unit. He is currently sitting up in bed. Awake and alert in no acute distress. He is maintaining O2 saturations in the mid 90s on 3 L/m per nasal cannula. He has been informed of his diagnosis of mesothelioma. Oncology consult pending. The patient is seen today 08/01/2021 in follow-up on the selective care unit. He is currently sitting up in bed. Awake and alert in no acute distress. He is maintaining O2 saturation in the 90s on 2 L/m per nasal cannula. He is afebrile. Hemodynamically stable. Blood culture reveals no growth. White count 15.8. Hemoglobin 7.3. Platelet count 539. Sodium 136. Potassium 3.7. BUN 14. Creatinine 0.81. He is continued on DuoNeb inhalations. Remains on antibiotics in form of Zosyn. Heparin for DVT prophylaxis. , I'm seeing the patient for a follow-up. He is short of breath and this is related to his malignant mesothelioma that was confirmed recently for thoracoscopy. I reviewed the repeat CAT scan of the chest that was done during this current admission. It is consistent with malignant mesothelioma. There is interval worsening in the thickness and the extent of the pleural rind that's around the left lung. There is also a small amount of pleural fluid collecting around the pleural surface which is loculated and this has been drained on multiple occasions and it is a bloody effusion. Cavitary lesions were also described in the left lung which obviously raises the concern for underlying necrotizing pneumonia versus malignancy itself. There is also increasing mediastinal lymphadenopathy most likely malignant. Right lung is essentially clear at this point in time. Based on all this, there is a high likelihood that the patient is having a rapid progression of his underlying malignant mesothelioma. He is chronically anemic and his hemoglobin is also has at 7.7 which is also contributing to shortness of breath. Oxygen requirements are 2 L per minute nasal cannula and the patient's pro calcitonin level at the time of admission was 0.6 and he was covered empirically with IV Zosyn. 08/03/2021, the patient is somewhat lethargic, on and off confused, at times restless in bed, it other times she answers appropriately. As such, his mentation is fluctuating. His breathing is slightly labored and the patient is currently on 6 L of oxygen by nasal cannula. I came to find other the patient was getting progressively more hypoxic and short of breath and agitated yesterday. He was quite confused. He was brought up to 6 L of O2 nasal cannula. He also became hypertensive. He was given IV Ativan and IV hydralazine. A CAT scan of the brain was done yesterday showed meningiomas , no acute abnormalities noted. He was given As mentioned earlier, the patient has a malignant mesothelioma. The patient also has developed significant thickening and the pleural rind around the left lung with some small loculated left-sided pleural effusions. There is also cavitation in the left lung in addition to mediastinal lymphadenopathy. Disease has progressed accordingly. For now, the patient is functionally doing very poor.. He seems to be quite weak and progressively getting more debilitated.The blood work shows a white cell count of 19.9 with a hemoglobin of 7.8 and the platelet count of 602. The blood gases from yesterday showed a pH of 7.46 with a pCO2 of 40 and pO2 of 76. Rest of the electrolytes are all within normal limits. The chest x-ray showing almost complete opacification of left hemithorax with extensive pulmonary infiltration. No progression on the right side of the lung. No right-sided pleural effusion. The patient has slightly improved with elevation in the lateral aspect of the left upper and midlung zone. 08/04/2021, the patient is on 4 L of oxygen by nasal cannula. He is slightly more oriented and awake compared to yesterday. Yesterday he was having significant mental status change and this morning he seems to be much more appropriate. Is following commands and answering questions. He is breathing is labored and the patient is unable to do any form of activity without getting short of breath. Chest x-rays showing complete opacification of the left lung. Based on an elevated pro calcitonin level, we suspected an infection and is currently covered with IV Zosyn. As stated, no role for Pleurx catheter insertion. No role for thoracentesis. The patient's pro calcitonin level was at 0.6. White cell count is at 19. I to normal. Prognosis extremely poor. Family from out of town is arriving today to the hospital. He is a DNR/DNI CODE STATUS. His oral intake is minimal at this point in time. He continues to be in bed lying on his left side which makes him more comfortable. No issues with pain. No focal neurological deficits. He has generalized global weakness. Expiratory thousand and 22, the patient is feeling stronger and he is alert and awake and sitting up on a recliner. He is still on 4 L O2 nasal cannula. Breathing is [id number] with talking and doing minimal amount of activity. He is weak. He has poor balance and coordination. The patient does not seem to be still interested in hospice. Nevertheless, he is quite weak for any systemic treatment for his underlying mesothelioma. He is looking for an ECF placement at least what I got from him today. The patient is a DNR/DNI CODE STATUS. The white cell count today is still pending. Labs from yesterday showed a white cell count of 20 with a hemoglobin of 7.5 and a platelet count of 595. In terms of medication, the patient is on oxygen at 4 L. He is on IV Zosyn and IV Solu-Medrol 40 mg every 12 hours. His pro calcitonin level at the time of admission was 0.6. Repeat level is at 0.88. Objective - Vital Signs Vital signs: Vital Signs Temp 97.7 F 08/05/21 08:00 Pulse 104 H 08/05/21 08:00 Resp 20 08/05/21 08:00 BP 136/80 08/05/21 08:00 Pulse Ox 94 L 08/05/21 09:18 FiO2 Intake & Output 08/04/21 08/05/21 08/05/21 18:59 06:59 18:59 Intake Total 240 Output Total 200 550 Balance 40 -550 Intake: Oral 240 Output: Urine 200 550 Other: Voiding Method Diaper Toilet Toilet Incontinent Diaper Diaper Incontinent Incontinent - Exam GENERAL EXAM: Alert, pleasant 71-year-old male patient, on 4 L nasal cannula, comfortable in no apparent distress. HEAD: Normocephalic. EYES: Normal reaction of pupils, equal size. NOSE: Clear with pink turbinates. THROAT: No erythema or exudates. NECK: No masses, no JVD. CHEST: No chest wall deformity. LUNGS: Equal air entry with crackles in the left lung base, diminished. CVS: S1 and S2 normal with no audible murmur, regular rhythm. ABDOMEN: No hepatosplenomegaly, normal bowel sounds, no guarding or rigidity. SPINE: No scoliosis or deformity SKIN: No rashes CENTRAL NERVOUS SYSTEM: No focal deficits, tone is normal in all 4 extremities. EXTREMITIES: There is no peripheral edema. No clubbing, no cyanosis. Peripheral pulses are intact. - Labs CBC & Chem 7: 08/04/21 06:46 08/04/21 06:46 Labs: Abnormal Lab Results - Last 24 Hours (Table) 08/04/21 Range/Units 06:46 Procalcitonin 0.88 H (0.02-0.09) ng/mL Microbiology - Last 24 Hours (Table) 07/30/21 18:00 Blood Culture - Preliminary Blood No Growth after 120 hours Assessment and Plan Plan: Acute hypoxemic respiratory failure secondary to increasing left sided recurrent pleural effusion and atelectasis secondary to mesothelioma the left lung and pleural rind diagnosed by wedge biopsy on 07/21/2021, along with progressive worsening and hypoxemia and the patient is currently on 4 L of O2 nasal cannula. There is significant opacification of the left lung which is a combination of tumor progression, mesothelioma, and possibly a superinfection with a pneumonia. Leukocytosis secondary to suspected postobstructive pneumonia, currently on Zosyn, pro-calcitonin 0.61 Recurrent left-sided pleural effusion secondary to above Altered mental status Obesity Hypertension Chronic anemia, current hemoglobin 7.3 Plan: The patient's functionality is poor. He has poor balance and coordination and he is extremely weak. I'm not so sure that he will be able to handle any systemic chemotherapy. The plan should be either hospice or sending him to ECF for further recovery. He is able to get more functionality, he may be a candidate for treatment at a later stage. As such, continue the bronchodilators. Continued IV Zosyn and start the patient on a prednisone burst taper. His pro-calcitonin level is at 0.88. O2 sats 4 L of oxygen nasal cannula Repeat another chest x-ray in the morning CAT scan of the brain is not showing any acute abnormalities. I reviewed the CAT scan images and his presentation with worsening shortness of breath is related to progression of his underlying mesothelioma. The cavities in the left lung is probably a necrotic tumor and the patient has reactive lymphadenopathy in addition to some chapped left-sided pleural effusion, small in size. Note that at the time of his thoracoscopy, the patient did not have any significant pleural fluid accumulation. As such, the chest tube was removed as output following the surgery/thoracoscopy was minimal from the left-sided chest tube. As such, this pleural effusion is trapped in the small and there is no value and draining the pleural fluid/that the patient is not going to have any the expansion of the left lung. Absolutely no role for Pleurx catheter insertion Prognosis remains extremely poor due to his underlying malignancy. CODE STATUS to DNR/DNI. Consider hospice care especially if there is no improvement in his overall functionality and performance status.
[2021-08-05 13:32] VITALS: BMI 25.8
--- NOTE | 2021-08-05 16:14 | CDI ---
Documentation Clarification Form Date: 08/05/2021 03:30:58 PM From: Ling Nails RN CCDS Admit Date: 07/30/2021 08:34:00 PM Patient Name: Tyron Mcginnis Visit Number: [id number] Discharge Date: ATTENTION: The Clinical Documentation Specialists (CDI) and [facility] Coding Staff appreciate your assistance in clarifying documentation. Please respond to the clarification below the line at the bottom and electronically sign. The CDI & [facility] Coding staff will review the response and follow-up if needed. Please note: Queries are made part of the Legal Health Record. If you have any questions, please contact the author of this message via ITS. Dr. Gena Cisse Your patient has the documented symptom of Altered Mental Status 08/03 08/05 , Pulmonary progress notes . Additional clarification regarding the etiology/cause of this symptom is requested. History/Risk Factors: 71-year-old female presents to the ED with increasing dyspnea. Medical History: COPD, Mesothelioma and HTN. Clinical Indicators: VSS 08/02: B/P 159/109 HR 132 RR 40 SpO2 96% Non-rebreather Labs 08/02: Wbc 16.9 Hgb 7.7 PLT 531 Neutrophils 14.8 Glucose 134 Calcium 7.7 AST 114 ALT 74 Total protein 5.[address] Chest Angio 07/30: Interval worsening of left sided pleural effusion with worsening lobulated pleural thickening of the left pleural space. New cavitary lesions seen from 06/24/21 and the left lung which could represent necrotizing pneumonia vs necrotic mass. Increasing mediastinal lymphadenopathy. CT Brain 08/03: No acute intracranial abnormality seen Pulmonary progress note 08/03: Patient has showed progressive decline in his condition.He is more hypoxic, is more short of breath, is mentally altered, he is on 6 L of O2 nasal cannula.He is moving all 4 extremities and his neurologic exam is nonfocal. Treatment:08/03 08/05 Solumedrol 40 IV Q12HR; Prednisone 40mg PO Daily to start 08/06; 07/31 current Zosyn 3.375gm IVPB Q8HR. Oxygen: 08/02 23:35 Oxygen 15L nonrebreather; 08/02 23:50 3L High Flow Oxygen; 08/03 03:46 5L nasal cannula; 08/03 11:10 4L oxygen to current. Please clarify the etiology of the symptom of Altered Mental Status: [ ] Metabolic Encephalopathy due to [insert cause of encephalopathy] [ x ] Metabolic Encephalopathy due to Mesothelioma progression [ ] Other condition (please specify) [ ] Unable to determine (Template Last Revised: March 2020) MTDD
[2021-08-05] MEDS: ACETAMINOPHEN TAB 325 MG TAB PO PRN (20:25)
[2021-08-05] MEDS: BENZOCAINE/MENTHOL LOZENG 1 EACH LOZENGE MUCOUS MEM PRN (22:53)
--- NOTE | 2021-08-05 23:15 | P.PN ---
Subjective Progress Note Date: 08/04/21 This is a pleasant 71 years old male with past medical history of COPD, Hypertension. Had left pleural effusion on 06/08/21, s/p left thoracentesis, has O2 @ 2L, using prn. Presents with worsening dyspnea over the last few days. Patient told me since June 08 is starts having dyspnea and since then is getting progressively worse. Occasional dry cough, no chest pain, no diarrhea or vomiting. No dizziness. Last week he had Left thoracotomy the left pleural and lung biopsy, there is surgical wound with ender, it looks clean and closed, there is 2 puncture wounds healing with no evidence of infection. No urinary complaints. Patient has memory problems and could not remember all the details. However he says that he having been started chemotherapy and he thinks he is going to see a doctor whom he believes his oncologist. On admission patient is tachypneic and tachycardic, blood pressure is 117/79 CBC showing leukocytosis of 18.7 K, it was 18.9 last month. INR is 1.1. D-dimer elevated 4.2. BMP is unremarkable. Liver enzymes not elevated. ProBNP is 1500 and troponin negative less than 0.02. EKG showing sinus tachycardia with PVCs rate of 125. No significant ST-T changes CTA of the chest: No pulmonary embolism. Worsening left pleural effusion. New cavitary lesion of the left lung which could represent necrotizing pneumonia versus necrotic mass. Mediastinal lymphadenopathy 08/01/2021 Patient remains tachypneic and saturation actually is better than yesterday. His breathing difficulty feels better today. He is saturating 97% on 2 L oxygen via nasal cannula He has this leukocytosis and hemoglobin dropped it 0.1 down to 7.3, could be elements of hemodilution but we will need to keep his hemoglobin closely. His new cavitary lesion in the left flank most likely infection procalcitonin elevated at 0.61. Patient is currently on Zosyn 08/02/2021 Patient is currently lying in bed. Awake and alert. Was admitted to hospital due to shortness of breath and mesothelioma. CT angiogram of the chest on admission showed no evidence of PE. Interval worsening left-sided pleural effusion with worsening lobulated pleural thickening of the left pleural space. There is new and probably lobular septal thickening suggestive of new pulmonary edema. Correlate with recent biopsy results and clinical picture for infection versus malignancy. New cavitary lesion seen from 06/24/2021 and the left lung which could represent necrotizing pneumonia versus necrotizing mass which is felt to be less likely given the short interval. Increasing mediastinal lymphadenopathy along with left internal mammary lymph node could be reactive versus secondary to metastatic lymphadenopathy. Pos ttraumatic changes of the left soft tissues with soft tissue now within the left lateral sidewall. Laboratory data showed WBC 16.9 hemoglobin 7.7 and platelets 531, sodium 137 potassium 3.921-2 bicarb is 29 BUN 13 and creatinine 0.85, albumin 2.4. Pro- calcitonin was 0.61 on 07/31/2021. Patient remains on antibiotic from Zosyn. 08/03/2021 Patient is currently lethargic and drowsy and confused. Overnight patient became more short of breath and confused and became more hypoxic. Patient was given IV Ativan and IV hydralazine due to elevated blood pressure. Currently patient is requiring oxygen at 6 L per nasal cannula. Patient was also started on methylprednisolone 40 mg every 8. Yesterday morning patient had CT of the head showed no acute intracranial abnormality seen. Couple extra axial lesion superiorly along the parasagittal midline measuring 1.1 cm in the right and 2 cm in the left likely meningiomas. Consider outpatient referral to neurosurgery for any potential follow-up. Laboratory data showed WBC 19.9 hemoglobin 7.8 and platelets 602 sodium 138 potassium 3.8 chloride 103 bicarb 29, BUN 14 and creatinine 0.77 calcium 7.7, albumin 2.4 Patient is on antibiotics in the form of Zosyn and DuoNeb's. Pulmonary and oncology is on board. 08/04/2021 Patient is in the telemetry unit. Seems to be more awake and oriented today. Requiring oxygen at 4 L via nasal cannula. Breathing status is better today. No complaints of chest pain. No nausea or vomiting or abdominal pain or diarrhea. Laboratory showed WBC went up to 19.9 hemoglobin 7.8 and platelets 602 sodium 138 potassium 3.8 chloride 103 bicarbonate 29 BUN 14 and creatinine 0.77 calcium 7.7. Patient is being continued on Zosyn. Procalcitonin was elevated 0.6. Patient is also on methylprednisolone and duo nebs. Pulmonary is on board. No role for thoracentesis at this time. Discussed with the patient and his at bedside in detail. Patient's family is hospice care. Current medications reviewed. Objective - Vital Signs Vital signs: Vital Signs Temp 97.7 F 08/05/21 08:00 Pulse 108 H 08/05/21 16:00 Resp 18 08/05/21 16:00 BP 139/68 08/05/21 16:00 Pulse Ox 93 L 08/05/21 16:00 FiO2 Intake & Output 08/05/21 08/05/21 08/06/21 06:59 18:59 06:59 Intake Total 480 Output Total 550 Balance -550 480 Weight 72.575 kg Intake: Oral 480 Output: Urine 550 Other: Voiding Method Toilet Toilet Diaper Diaper Incontinent Incontinent # Voids 1 # Bowel Movements 1 - Exam - Exam GENERAL: The patient is alert and oriented x3, not in any acute distress. Well developed, well nourished. HEENT: Pupils are round and equally reacting to light. EOMI. No scleral icterus. No conjunctival pallor. Normocephalic, atraumatic. No pharyngeal erythema. No thyromegaly. CARDIOVASCULAR: S1 and S2 present. No murmurs, rubs, or gallops. -PULMONARY: Chest is clear to auscultation, no wheezing or crackles. Decreased breath sounds on the left side with some crepitation, bibasilar wheezing. ABDOMEN: Soft, nontender, nondistended, normoactive bowel sounds. No palpable organomegaly. MUSCULOSKELETAL: No joint swelling or deformity. EXTREMITIES: No cyanosis, clubbing, or pedal edema. NEUROLOGICAL: Gross neurological examination did not reveal any focal deficits. SKIN: No rashes. no petechiae. - Labs CBC & Chem 7: 08/04/21 06:46 08/04/21 06:46 Labs: Abnormal Lab Results - Last 24 Hours (Table) 08/05/21 Range/Units 12:00 Procalcitonin 0.57 H (0.02-0.09) ng/mL Microbiology - Last 24 Hours (Table) 07/30/21 18:00 Blood Culture - Final Blood No Growth after 144 hours Assessment and Plan Assessment: Acute hypoxic respiratory failure secondary to loculated pleural effusion with underlying mesothelioma. Currently on oxygen at 4 L via nasal cannula. Possible underlying pneumonia/post obstructive pneumonia. Pulmonary Mesothelioma Recurrent and worsening left pleural effusion Left lung Cavitary lesion, necrotizing pneumonia versus metastasis is suspected (less likely) Elevated d-dimer, with negative PE on CTA of the chest chronic leukocytosis Chronic hypoxic respiratory failure DVT prophylaxis. Plan: This is a pleasant 71 is a male who presents with pleural effusion with history of lung cancer suspected, with cavitary lesions and the ventricular cavity. Continue with Zosyn , pulmonary team is following.. Oncology is on board. Labs and medication were reviewed.. Monitor lytes and vitals. DVT and GI prophylaxis. DVT prophylaxis: Subcutaneous heparin GI Prophylaxis: Pepcid PT/OT: Pending Prognosis is poor at this time. Time with Patient: Greater than 30
--- NOTE | 2021-08-05 23:18 | P.PN ---
Subjective Progress Note Date: 08/05/21 This is a pleasant 71 years old male with past medical history of COPD, Hypertension. Had left pleural effusion on 06/08/21, s/p left thoracentesis, has O2 @ 2L, using prn. Presents with worsening dyspnea over the last few days. Patient told me since June 08 is starts having dyspnea and since then is getting progressively worse. Occasional dry cough, no chest pain, no diarrhea or vomiting. No dizziness. Last week he had Left thoracotomy the left pleural and lung biopsy, there is surgical wound with ender, it looks clean and closed, there is 2 puncture wounds healing with no evidence of infection. No urinary complaints. Patient has memory problems and could not remember all the details. However he says that he having been started chemotherapy and he thinks he is going to see a doctor whom he believes his oncologist. On admission patient is tachypneic and tachycardic, blood pressure is 117/79 CBC showing leukocytosis of 18.7 K, it was 18.9 last month. INR is 1.1. D-dimer elevated 4.2. BMP is unremarkable. Liver enzymes not elevated. ProBNP is 1500 and troponin negative less than 0.02. EKG showing sinus tachycardia with PVCs rate of 125. No significant ST-T changes CTA of the chest: No pulmonary embolism. Worsening left pleural effusion. New cavitary lesion of the left lung which could represent necrotizing pneumonia versus necrotic mass. Mediastinal lymphadenopathy 08/01/2021 Patient remains tachypneic and saturation actually is better than yesterday. His breathing difficulty feels better today. He is saturating 97% on 2 L oxygen via nasal cannula He has this leukocytosis and hemoglobin dropped it 0.1 down to 7.3, could be elements of hemodilution but we will need to keep his hemoglobin closely. His new cavitary lesion in the left flank most likely infection procalcitonin elevated at 0.61. Patient is currently on Zosyn 08/02/2021 Patient is currently lying in bed. Awake and alert. Was admitted to hospital due to shortness of breath and mesothelioma. CT angiogram of the chest on admission showed no evidence of PE. Interval worsening left-sided pleural effusion with worsening lobulated pleural thickening of the left pleural space. There is new and probably lobular septal thickening suggestive of new pulmonary edema. Correlate with recent biopsy results and clinical picture for infection versus malignancy. New cavitary lesion seen from 06/24/2021 and the left lung which could represent necrotizing pneumonia versus necrotizing mass which is felt to be less likely given the short interval. Increasing mediastinal lymphadenopathy along with left internal mammary lymph node could be reactive versus secondary to metastatic lymphadenopathy. Pos ttraumatic changes of the left soft tissues with soft tissue now within the left lateral sidewall. Laboratory data showed WBC 16.9 hemoglobin 7.7 and platelets 531, sodium 137 potassium 3.921-2 bicarb is 29 BUN 13 and creatinine 0.85, albumin 2.4. Pro- calcitonin was 0.61 on 07/31/2021. Patient remains on antibiotic from Zosyn. 08/03/2021 Patient is currently lethargic and drowsy and confused. Overnight patient became more short of breath and confused and became more hypoxic. Patient was given IV Ativan and IV hydralazine due to elevated blood pressure. Currently patient is requiring oxygen at 6 L per nasal cannula. Patient was also started on methylprednisolone 40 mg every 8. Yesterday morning patient had CT of the head showed no acute intracranial abnormality seen. Couple extra axial lesion superiorly along the parasagittal midline measuring 1.1 cm in the right and 2 cm in the left likely meningiomas. Consider outpatient referral to neurosurgery for any potential follow-up. Laboratory data showed WBC 19.9 hemoglobin 7.8 and platelets 602 sodium 138 potassium 3.8 chloride 103 bicarb 29, BUN 14 and creatinine 0.77 calcium 7.7, albumin 2.4 Patient is on antibiotics in the form of Zosyn and DuoNeb's. Pulmonary and oncology is on board. 08/04/2021 Patient is in the telemetry unit. Seems to be more awake and oriented today. Requiring oxygen at 4 L via nasal cannula. Breathing status is better today. No complaints of chest pain. No nausea or vomiting or abdominal pain or diarrhea. Laboratory showed WBC went up to 19.9 hemoglobin 7.8 and platelets 602 sodium 138 potassium 3.8 chloride 103 bicarbonate 29 BUN 14 and creatinine 0.77 calcium 7.7. Patient is being continued on Zosyn. Procalcitonin was elevated 0.6. Patient is also on methylprednisolone and duo nebs. Pulmonary is on board. No role for thoracentesis at this time. Discussed with the patient and his at bedside in detail. Patient's family is hospice care. 08/05/2021 Patient feels better today. Awake alert and oriented. Able to sit in the recliner. Currently requiring oxygen 4 L via nasal cannula. Otherwise patient feels very weak and with balance issues. Patient did have a white count elevated at 20.0 yesterday and hemoglobin 7.5. Procalcitonin was 0.88. Patient is being continued on antibiotics in the form of Zosyn and IV methylprednisolone changed to prednisone 40 mg daily. Pulmonary and oncology is on board. Current medications reviewed. Objective - Vital Signs Vital signs: Vital Signs Temp 97.7 F 08/05/21 08:00 Pulse 108 H 08/05/21 16:00 Resp 18 08/05/21 16:00 BP 139/68 08/05/21 16:00 Pulse Ox 93 L 08/05/21 16:00 FiO2 Intake & Output 08/05/21 08/05/21 08/06/21 06:59 18:59 06:59 Intake Total 480 Output Total 550 Balance -550 480 Weight 72.575 kg Intake: Oral 480 Output: Urine 550 Other: Voiding Method Toilet Toilet Diaper Diaper Incontinent Incontinent # Voids 1 # Bowel Movements 1 - Exam - Exam GENERAL: The patient is alert and oriented x3, not in any acute distress. Well developed, well nourished. HEENT: Pupils are round and equally reacting to light. EOMI. No scleral icterus. No conjunctival pallor. Normocephalic, atraumatic. No pharyngeal erythema. No thyromegaly. CARDIOVASCULAR: S1 and S2 present. No murmurs, rubs, or gallops. -PULMONARY: Chest is clear to auscultation, no wheezing or crackles. Decreased breath sounds on the left side with some crepitation, bibasilar wheezing. ABDOMEN: Soft, nontender, nondistended, normoactive bowel sounds. No palpable organomegaly. MUSCULOSKELETAL: No joint swelling or deformity. EXTREMITIES: No cyanosis, clubbing, or pedal edema. NEUROLOGICAL: Gross neurological examination did not reveal any focal deficits. SKIN: No rashes. no petechiae. - Labs CBC & Chem 7: 08/04/21 06:46 08/04/21 06:46 Labs: Abnormal Lab Results - Last 24 Hours (Table) 08/05/21 Range/Units 12:00 Procalcitonin 0.57 H (0.02-0.09) ng/mL Microbiology - Last 24 Hours (Table) 07/30/21 18:00 Blood Culture - Final Blood No Growth after 144 hours Assessment and Plan Assessment: Acute hypoxic respiratory failure secondary to loculated pleural effusion with underlying mesothelioma. Currently on oxygen at 4 L via nasal cannula. Possible underlying pneumonia/post obstructive pneumonia. Pulmonary Mesothelioma Recurrent and worsening left pleural effusion Left lung Cavitary lesion, necrotizing pneumonia versus metastasis is suspected (less likely) Elevated d-dimer, with negative PE on CTA of the chest chronic leukocytosis Chronic hypoxic respiratory failure DVT prophylaxis. CODE STATUS DNR/DNI. Plan: This is a pleasant 71 is a male who presents with pleural effusion with history of lung cancer suspected, with cavitary lesions and the ventricular cavity. Continue with Zosyn , pulmonary team is following.. Oncology is on board. Labs and medication were reviewed.. Monitor lytes and vitals. DVT and GI prophylaxis. DVT prophylaxis: Subcutaneous heparin GI Prophylaxis: Pepcid PT/OT And possible transfer to rehab. Prognosis is poor at this time. Time with Patient: Greater than 30
[2021-08-06] MEDS: BENZOCAINE/MENTHOL LOZENG 1 EACH LOZENGE MUCOUS MEM PRN ×2 (04:32→11:00)
--- NOTE | 2021-08-06 08:39 | XR ---
EXAMINATION TYPE: XR chest 1V portable DATE OF EXAM: 08/06/2021 Comparison: 08/03/2021 Clinical History: 71 year-old male shortness of breath Findings: Ongoing white out the left hemithorax. Right lung and pleural spaces relatively clear. Impression: Ongoing white out of the left hemithorax. Correlate clinically as to any known diagnosis. Suspect und erlying large effusion and either underlying infectious or neoplastic process.
[2021-08-06] MEDS: FAMOTIDINE 20 MG/2 ML VIAL IV SCH ×2 (09:30→21:08)
[2021-08-06] MEDS: PIPERACILLIN-TAZOBACTAM 3.375 GM in SODIUM CHLORIDE 0.9% 100 ML IVPB SCH ×3 (09:30→23:09)
[2021-08-06] MEDS: predniSONE 20 MG TAB PO SCH (09:30)
[2021-08-06] MEDS: METOPROLOL TARTRATE 25 MG TAB PO SCH ×2 (09:30→21:08)
[2021-08-06] MEDS: HEPARIN SODIUM,PORCINE/PF 5,000 UNIT/0.5 ML SYRINGE SQ SCH ×2 (09:31→21:08)
[2021-08-06] MEDS: ACETAMINOPHEN TAB 325 MG TAB PO PRN (11:21)
[2021-08-06 12:56] LABS: ALT 66 U/L (4-49); AST 61 U/L (17-59); African American GFR (CKD) >90 (>60 ml/min/1.73 sqM); Albumin 2.4 g/dL (3.5-5.0); Alkaline Phosphatase 65 U/L (38-126); Anion Gap 4 mmol/L; Blood Urea Nitrogen 30 mg/dL (9-20); Calcium 7.8 mg/dL (8.4-10.2); Carbon Dioxide 29 mmol/L (22-30); Chloride 106 mmol/L (98-107); Glucose 142 mg/dL (74-99); Non-African American GFR(CKD) 79 (>60 ml/min/1.73 sqM); Sodium 139 mmol/L (137-145); Total Bilirubin 0.2 mg/dL (0.2-1.3); Total Protein 5.4 g/dL (6.3-8.2)
--- NOTE | 2021-08-06 13:01 | P.PN ---
Subjective Progress Note Date: 08/06/21 This is a pleasant 71-year-old male patient with a known history of hypertension, obesity, chronic anemia, recurrent left-sided pleural effusion with previous thoracocentesis. He had subsequently undergone a left thoracotomy on 07/21/2021 with left pleural and lung biopsy now found to be positive for me sothelioma. He was discharged on 07/24/2021. He presented to the emergency room yesterday with worsening shortness of breath. Chest x-ray revealed worsening opacification of the left hemithorax due to acute atelectasis/airspace disease and enlarging pleural effusion. CT angiogram ruled out pulmonary embolism. There was interval worsening left-sided pleural effusion with worsening lobulated pleural thickening of the left pleural space. There is new intralobular septal thickening suggestive of new pulmonary edema. New cavitary lesions could represent necrotizing pneumonia versus necrotic mass. Increasing mediastinal lymphadenopathy along with left internal mammary lymph node most likely secondary to metastatic lymphadenopathy. Ultrasound of the left chest revealed a pocket size of 6.3 cm. Dopplers of the lower extremity were negative for DVT. White count 18.7. Hemoglobin 8.1. Platelets 606. D-dimer 4.25. Sodium 135. Potassium 3.7. BUN 18. Creatinine 0.9. Glucose 178. AST 60. ALT 34. Her BNP 1500. He's been initiated on DuoNeb inhalations. Heparin for DVT prophylaxis. He is seen today in consultation on the selective care unit. He is currently sitting up in bed. Awake and alert in no acute distress. He is maintaining O2 saturations in the mid 90s on 3 L/m per nasal cannula. He has been informed of his diagnosis of mesothelioma. Oncology consult pending. The patient is seen today 08/01/2021 in follow-up on the selective care unit. He is currently sitting up in bed. Awake and alert in no acute distress. He is maintaining O2 saturation in the 90s on 2 L/m per nasal cannula. He is afebrile. Hemodynamically stable. Blood culture reveals no growth. White count 15.8. Hemoglobin 7.3. Platelet count 539. Sodium 136. Potassium 3.7. BUN 14. Creatinine 0.81. He is continued on DuoNeb inhalations. Remains on antibiotics in form of Zosyn. Heparin for DVT prophylaxis. , I'm seeing the patient for a follow-up. He is short of breath and this is related to his malignant mesothelioma that was confirmed recently for thoracoscopy. I reviewed the repeat CAT scan of the chest that was done during this current admission. It is consistent with malignant mesothelioma. There is interval worsening in the thickness and the extent of the pleural rind that's around the left lung. There is also a small amount of pleural fluid collecting around the pleural surface which is loculated and this has been drained on multiple occasions and it is a bloody effusion. Cavitary lesions were also described in the left lung which obviously raises the concern for underlying necrotizing pneumonia versus malignancy itself. There is also increasing mediastinal lymphadenopathy most likely malignant. Right lung is essentially clear at this point in time. Based on all this, there is a high likelihood that the patient is having a rapid progression of his underlying malignant mesothelioma. He is chronically anemic and his hemoglobin is also has at 7.7 which is also contributing to shortness of breath. Oxygen requirements are 2 L per minute nasal cannula and the patient's pro calcitonin level at the time of admission was 0.6 and he was covered empirically with IV Zosyn. 08/03/2021, the patient is somewhat lethargic, on and off confused, at times restless in bed, it other times she answers appropriately. As such, his mentation is fluctuating. His breathing is slightly labored and the patient is currently on 6 L of oxygen by nasal cannula. I came to find other the patient was getting progressively more hypoxic and short of breath and agitated yesterday. He was quite confused. He was brought up to 6 L of O2 nasal cannula. He also became hypertensive. He was given IV Ativan and IV hydralazine. A CAT scan of the brain was done yesterday showed meningiomas , no acute abnormalities noted. He was given As mentioned earlier, the patient has a malignant mesothelioma. The patient also has developed significant thickening and the pleural rind around the left lung with some small loculated left-sided pleural effusions. There is also cavitation in the left lung in addition to mediastinal lymphadenopathy. Disease has progressed accordingly. For now, the patient is functionally doing very poor.. He seems to be quite weak and progressively getting more debilitated.The blood work shows a white cell count of 19.9 with a hemoglobin of 7.8 and the platelet count of 602. The blood gases from yesterday showed a pH of 7.46 with a pCO2 of 40 and pO2 of 76. Rest of the electrolytes are all within normal limits. The chest x-ray showing almost complete opacification of left hemithorax with extensive pulmonary infiltration. No progression on the right side of the lung. No right-sided pleural effusion. The patient has slightly improved with elevation in the lateral aspect of the left upper and midlung zone. 08/04/2021, the patient is on 4 L of oxygen by nasal cannula. He is slightly more oriented and awake compared to yesterday. Yesterday he was having significant mental status change and this morning he seems to be much more appropriate. Is following commands and answering questions. He is breathing is labored and the patient is unable to do any form of activity without getting short of breath. Chest x-rays showing complete opacification of the left lung. Based on an elevated pro calcitonin level, we suspected an infection and is currently covered with IV Zosyn. As stated, no role for Pleurx catheter insertion. No role for thoracentesis. The patient's pro calcitonin level was at 0.6. White cell count is at 19. I to normal. Prognosis extremely poor. Family from out of town is arriving today to the hospital. He is a DNR/DNI CODE STATUS. His oral intake is minimal at this point in time. He continues to be in bed lying on his left side which makes him more comfortable. No issues with pain. No focal neurological deficits. He has generalized global weakness. Expiratory thousand and 22, the patient is feeling stronger and he is alert and awake and sitting up on a recliner. He is still on 4 L O2 nasal cannula. Breathing is [id number] with talking and doing minimal amount of activity. He is weak. He has poor balance and coordination. The patient does not seem to be still interested in hospice. Nevertheless, he is quite weak for any systemic treatment for his underlying mesothelioma. He is looking for an ECF placement at least what I got from him today. The patient is a DNR/DNI CODE STATUS. The white cell count today is still pending. Labs from yesterday showed a white cell count of 20 with a hemoglobin of 7.5 and a platelet count of 595. In terms of medication, the patient is on oxygen at 4 L. He is on IV Zosyn and IV Solu-Medrol 40 mg every 12 hours. His pro calcitonin level at the time of admission was 0.6. Repeat level is at 0.88. on 08/06/2021, the patient is essentially same as yesterday. He still trying to figure out whether to go to ECF versus home. He stopped 40s about 2 by nasal cannula. His CODE STATUS is DNR/DNI. no new complaints otherwise for now. the patient is on IV Zosyn and IV Solu-Medrol still. in terms of his labs, the electrolytes all within normal limits. Renal function is also normal. he is tolerating his diet. No altered mentation and confusion. He is weak. Objective - Vital Signs Vital signs: Vital Signs Temp 97.8 F 08/06/21 11:32 Pulse 85 08/06/21 11:32 Resp 17 08/06/21 11:32 BP 116/74 08/06/21 11:32 Pulse Ox 97 08/06/21 11:32 FiO2 Intake & Output 08/05/21 08/06/21 08/06/21 18:59 06:59 18:59 Intake Total 480 240 Output Total 250 Balance 480 -250 240 Weight 72.575 kg Intake: Oral 480 240 Output: Urine 250 Other: Voiding Method Toilet Toilet Toilet Diaper Incontinent # Voids 1 1 # Bowel Movements 1 - Exam GENERAL EXAM: Alert, pleasant 71-year-old male patient, on 4 L nasal cannula, comfortable in no apparent distress. HEAD: Normocephalic. EYES: Normal reaction of pupils, equal size. NOSE: Clear with pink turbinates. THROAT: No erythema or exudates. NECK: No masses, no JVD. CHEST: No chest wall deformity. LUNGS: Equal air entry with crackles in the left lung base, diminished. CVS: S1 and S2 normal with no audible murmur, regular rhythm. ABDOMEN: No hepatosplenomegaly, normal bowel sounds, no guarding or rigidity. SPINE: No scoliosis or deformity SKIN: No rashes CENTRAL NERVOUS SYSTEM: No focal deficits, tone is normal in all 4 extremities. EXTREMITIES: There is no peripheral edema. No clubbing, no cyanosis. Peripheral pulses are intact. - Labs CBC & Chem 7: 08/04/21 06:46 08/04/21 06:46 Labs: Abnormal Lab Results - Last 24 Hours (Table) 08/05/21 Range/Units 12:00 Procalcitonin 0.57 H (0.02-0.09) ng/mL Microbiology - Last 24 Hours (Table) 07/30/21 18:00 Blood Culture - Final Blood No Growth after 144 hours Assessment and Plan Plan: Acute hypoxemic respiratory failure secondary to increasing left sided recurrent pleural effusion and atelectasis secondary to mesothelioma the left lung and pleural rind diagnosed by wedge biopsy on 07/21/2021, along with progressive worsening and hypoxemia and the patient is currently on 4 L of O2 nasal cannula. There is significant opacification of the left lung which is a combination of tumor progression, mesothelioma, and possibly a superinfection with a pneumonia. Leukocytosis secondary to suspected postobstructive pneumonia, currently on Zosyn, pro-calcitonin 0.61 Recurrent left-sided pleural effusion secondary to above Altered mental status Obesity Hypertension Chronic anemia, current hemoglobin 7.3 Plan: x-ray, the patient is to yesterday. Continue oxygen. Continue IV Zosyn. Prednisone burst taper. consider ECF placements for rehabilitation. not a candidate for systemic chemotherapy which will be in the form of carboplatin and and Alimta. I do not think the patient will handle chemotherapy well at this point in time. The patient's functionality is poor. He has poor balance and coordination and he is extremely weak. I'm not so sure that he will be able to handle any systemic chemotherapy. The plan should be either hospice or sending him to ECF for further recovery. He is able to get more functionality, he may be a candidate for treatment at a later stage. As such, continue the bronchodilator s. Continued IV Zosyn and start the patient on a prednisone burst taper. His pro-calcitonin level is at 0.88. O2 sats 4 L of oxygen nasal cannula Repeat another chest x-ray in the morning CAT scan of the brain is not showing any acute abnormalities. I reviewed the CAT scan images and his presentation with worsening shortness of breath is related to progression of his underlying mesothelioma. The cavities in the left lung is probably a necrotic tumor and the patient has reactive lymphadenopathy in addition to some chapped left-sided pleural effusion, small in size. Note that at the time of his thoracoscopy, the patient did not have any significant pleural fluid accumulation. As such, the chest tube was removed as output following the surgery/thoracoscopy was minimal from the left-sided chest tube. As such, this pleural effusion is trapped in the small and there is no value and draining the pleural fluid/that the patient is not going to have any the expansion of the left lung. Absolutely no role for Pleurx catheter insertion Prognosis remains extremely poor due to his underlying malignancy. CODE STATUS to DNR/DNI.
[2021-08-06 13:14] LABS: Anisocytosis Slight; Basophils % (A) 0 %; Eosinophils % (A) 0 %; HCT 28.1 % (39.0-53.0); Hypochromasia Marked; Lymphocytes # (A) 0.5 k/uL (1.0-4.8); Lymphocytes % (A) 3 %; MCH 24.1 pg (25.0-35.0); MCHC 28.4 g/dL (31.0-37.0); MCV 85.1 fL (80.0-100.0); Mean Platelet Volume 6.4; Monocytes # (A) 0.5 k/uL (0-1.0); Monocytes % (A) 3 %; Neutrophils # (A) 13.3 k/uL (1.3-7.7); Neutrophils % (A) 93 %; Platelet Count 566 k/uL (150-450); RBC 3.31 m/uL (4.30-5.90); RDW 16.8 % (11.5-15.5); WBC 14.3 k/uL (3.8-10.6)
[2021-08-06] MEDS: IPRATROPIUM-ALBUTEROL 3 ML NEB INHALATION PRN (16:16)
--- NOTE | 2021-08-06 17:12 | P.PN ---
Subjective Progress Note Date: 08/06/21 71 years old male with past medical history of COPD, Hypertension. Had left pleural effusion on 06/08/21, s/p left thoracentesis, has O2 @ 2L, using prn. Presents with worsening dyspnea over the last few days. Patient told me since June 08 is starts having dyspnea and since then is getting progressively worse. Occasional dry cough, no chest pain, no diarrhea or vomiting. No dizziness. Last week he had Left thoracotomy the left pleural and lung biopsy, there is surgical wound with ender, it looks clean and closed, there is 2 puncture wounds healing with no evidence of infection. No urinary complaints. Patient has memory problems and could not remember all the details. However he says that he having been started chemotherapy and he thinks he is going to see a doctor whom he believes his oncologist. On admission patient is tachypneic and tachycardic, blood pressure is 117/79 CBC showing leukocytosis of 18.7 K, it was 18.9 last month. INR is 1.1. D-dimer elevated 4.2. BMP is unremarkable. Liver enzymes not elevated. ProBNP is 1500 and troponin negative less than 0.02. EKG showing sinus tachycardia with PVCs rate of 125. No significant ST-T changes CTA of the chest: No pulmonary embolism. Worsening left pleural effusion. New cavitary lesion of the left lung which could represent necrotizing pneumonia versus necrotic mass. Mediastinal lymphadenopathy Objective - Vital Signs Vital signs: Vital Signs Temp 97.8 F 08/06/21 11:32 Pulse 85 08/06/21 11:32 Resp 17 08/06/21 11:32 BP 116/74 08/06/21 11:32 Pulse Ox 97 08/06/21 11:32 FiO2 Intake & Output 08/05/21 08/06/21 08/06/21 18:59 06:59 18:59 Intake Total 480 240 Output Total 250 Balance 480 -250 240 Weight 72.575 kg Intake: Oral 480 240 Output: Urine 250 Other: Voiding Method Toilet Toilet Toilet Diaper Incontinent # Voids 1 1 # Bowel Movements 1 - Exam GENERAL: The patient is alert and oriented x3, not in any acute distress. Well developed, well nourished. HEENT: Pupils are round and equally reacting to light. EOMI. No scleral icterus. No conjunctival pallor. Normocephalic, atraumatic. No pharyngeal erythema. No thyromegaly. CARDIOVASCULAR: S1 and S2 present. No murmurs, rubs, or gallops. -PULMONARY: Chest is clear to auscultation, no wheezing or crackles. Decreased breath sounds on the left side with some crepitation, bibasilar wheezing. ABDOMEN: Soft, nontender, nondistended, normoactive bowel sounds. No palpable organomegaly. MUSCULOSKELETAL: No joint swelling or deformity. EXTREMITIES: No cyanosis, clubbing, or pedal edema. NEUROLOGICAL: Gross neurological examination did not reveal any focal deficits. SKIN: No rashes. no petechiae. - Labs CBC & Chem 7: 08/06/21 12:04 08/06/21 12:04 Labs: Abnormal Lab Results - Last 24 Hours (Table) 08/05/21 Range/Units 12:00 Procalcitonin 0.57 H (0.02-0.09) ng/mL Microbiology - Last 24 Hours (Table) 07/30/21 18:00 Blood Culture - Final Blood No Growth after 144 hours Assessment and Plan Assessment: Acute hypoxic respiratory failure secondary to loculated pleural effusion with underlying mesothelioma. Currently on oxygen at 4 L via nasal cannula. Possible underlying pneumonia/post obstructive pneumonia. Pulmonary Mesothelioma Recurrent and worsening left pleural effusion Left lung Cavitary lesion, necrotizing pneumonia versus metastasis is suspected (less likely) Elevated d-dimer, with negative PE on CTA of the chest chronic leukocytosis Chronic hypoxic respiratory failure DVT prophylaxis. CODE STATUS DNR/DNI. Plan: This is a pleasant 71 is a male who presents with pleural effusion with history of lung cancer suspected, with cavitary lesions and the ventricular cavity. Continue with Gabriellen , pulmonary team is following.. Oncology is on board. Labs and medication were reviewed.. Monitor lytes and vitals. DVT and GI prophylaxis. DVT prophylaxis: Subcutaneous heparin GI Prophylaxis: Pepcid PT/OT And possible transfer to rehab. Prognosis is poor at this time.
--- NOTE | 2021-08-06 18:46 | P.PN ---
Subjective Progress Note Date: 08/06/21 Patient and multiple family members at hospital during visit today,,we discussed treatment goals, Pulmonary did also visit during our discussion. Patient wants to "fight" girlfriend planning on second opinion with surgeon at [facility] Objective - Vital Signs Vital signs: Vital Signs Temp 97.4 F L 08/06/21 04:00 Pulse 78 08/06/21 04:00 Resp 18 08/06/21 04:00 BP 110/51 08/06/21 04:00 Pulse Ox 93 L 08/06/21 04:00 FiO2 Intake & Output 08/05/21 08/06/21 08/06/21 18:59 06:59 18:59 Intake Total 480 Output Total 250 Balance 480 -250 Weight 72.575 kg Intake: Oral 480 Output: Urine 250 Other: Voiding Method Toilet Toilet Diaper Incontinent # Voids 1 1 # Bowel Movements 1 - Exam - Constitutional General appearance: Present: average body habitus, cooperative, mild distress - Respiratory Details: respirations mildly labored at rest Irr HR BLE Edema No rash - Labs CBC & Chem 7: 08/06/21 12:04 08/06/21 12:04 Labs: Abnormal Lab Results - Last 24 Hours (Table) 08/05/21 Range/Units 12:00 Procalcitonin 0.57 H (0.02-0.09) ng/mL Microbiology - Last 24 Hours (Table) 07/30/21 18:00 Blood Culture - Final Blood No Growth after 144 hours Assessment and Plan (1) Mesothelioma of left lung Current Visit: Yes Status: Acute Priority: High Code(s): C45.7 - MESOTHELIOMA OF OTHER SITES SNOMED Code(s): 554449998 (2) Acute respiratory failure with hypoxia Current Visit: No Status: Acute Code(s): J96.01 - ACUTE RESPIRATORY FAILURE WITH HYPOXIA SNOMED Code(s): 13457935 (3) Recurrent left pleural effusion Current Visit: No Status: Acute Code(s): J90 - PLEURAL EFFUSION, NOT ELSEWHERE CLASSIFIED SNOMED Code(s): 37500178 (4) Tachycardia Current Visit: No Status: Acute Code(s): R00.0 - TACHYCARDIA, UNSPECIFIED SNOMED Code(s): 1425275 Plan: Plan: - Overall prognosis is poor as patient's performance is not adequate for tony tment at this time and without treatment he will likely not improve, although they are now wanting to pursue rehab instead of original resonable plan of hospice care. Family understands overall poor prognosis. - Will recheck labs today since uncertain on chosen course He is too weak to undergo inpatient chemotherapy >30 minutes with patient and family and all questions answered. Realistic expe ctations discussed attests: I have performed H&P, seen and examined patient, developed impressi on and plan of care. Discussed with dictator. Agree with documentation dictated as a scribe
[2021-08-07] MEDS: BENZOCAINE/MENTHOL LOZENG 1 EACH LOZENGE MUCOUS MEM PRN (08:24)
[2021-08-07] MEDS: PIPERACILLIN-TAZOBACTAM 3.375 GM in SODIUM CHLORIDE 0.9% 100 ML IVPB SCH (08:25)
[2021-08-07] MEDS: METOPROLOL TARTRATE 25 MG TAB PO SCH (08:25)
[2021-08-07] MEDS: FAMOTIDINE 20 MG/2 ML VIAL IV SCH (08:25)
[2021-08-07] MEDS: HEPARIN SODIUM,PORCINE/PF 5,000 UNIT/0.5 ML SYRINGE SQ SCH (08:25)
[2021-08-07] MEDS: predniSONE 20 MG TAB PO SCH (08:25)
--- NOTE | 2021-08-07 10:34 | P.PN ---
Subjective Progress Note Date: 08/07/21 This is a pleasant 71-year-old male patient with a known history of hypertension, obesity, chronic anemia, recurrent left-sided pleural effusion with previous thoracocentesis. He had subsequently undergone a left thoracotomy on 07/21/2021 with left pleural and lung biopsy now found to be positive for me sothelioma. He was discharged on 07/24/2021. He presented to the emergency room yesterday with worsening shortness of breath. Chest x-ray revealed worsening opacification of the left hemithorax due to acute atelectasis/airspace disease and enlarging pleural effusion. CT angiogram ruled out pulmonary embolism. There was interval worsening left-sided pleural effusion with worsening lobulated pleural thickening of the left pleural space. There is new intralobular septal thickening suggestive of new pulmonary edema. New cavitary lesions could represent necrotizing pneumonia versus necrotic mass. Increasing mediastinal lymphadenopathy along with left internal mammary lymph node most likely secondary to metastatic lymphadenopathy. Ultrasound of the left chest revealed a pocket size of 6.3 cm. Dopplers of the lower extremity were negative for DVT. White count 18.7. Hemoglobin 8.1. Platelets 606. D-dimer 4.25. Sodium 135. Potassium 3.7. BUN 18. Creatinine 0.9. Glucose 178. AST 60. ALT 34. Her BNP 1500. He's been initiated on DuoNeb inhalations. Heparin for DVT prophylaxis. He is seen today in consultation on the selective care unit. He is currently sitting up in bed. Awake and alert in no acute distress. He is maintaining O2 saturations in the mid 90s on 3 L/m per nasal cannula. He has been informed of his diagnosis of mesothelioma. Oncology consult pending. The patient is seen today 08/01/2021 in follow-up on the selective care unit. He is currently sitting up in bed. Awake and alert in no acute distress. He is maintaining O2 saturation in the 90s on 2 L/m per nasal cannula. He is afebrile. Hemodynamically stable. Blood culture reveals no growth. White count 15.8. Hemoglobin 7.3. Platelet count 539. Sodium 136. Potassium 3.7. BUN 14. Creatinine 0.81. He is continued on DuoNeb inhalations. Remains on antibiotics in form of Zosyn. Heparin for DVT prophylaxis. , I'm seeing the patient for a follow-up. He is short of breath and this is related to his malignant mesothelioma that was confirmed recently for thoracoscopy. I reviewed the repeat CAT scan of the chest that was done during this current admission. It is consistent with malignant mesothelioma. There is interval worsening in the thickness and the extent of the pleural rind that's around the left lung. There is also a small amount of pleural fluid collecting around the pleural surface which is loculated and this has been drained on multiple occasions and it is a bloody effusion. Cavitary lesions were also described in the left lung which obviously raises the concern for underlying necrotizing pneumonia versus malignancy itself. There is also increasing mediastinal lymphadenopathy most likely malignant. Right lung is essentially clear at this point in time. Based on all this, there is a high likelihood that the patient is having a rapid progression of his underlying malignant mesothelioma. He is chronically anemic and his hemoglobin is also has at 7.7 which is also contributing to shortness of breath. Oxygen requirements are 2 L per minute nasal cannula and the patient's pro calcitonin level at the time of admission was 0.6 and he was covered empirically with IV Zosyn. 08/03/2021, the patient is somewhat lethargic, on and off confused, at times restless in bed, it other times she answers appropriately. As such, his mentation is fluctuating. His breathing is slightly labored and the patient is currently on 6 L of oxygen by nasal cannula. I came to find other the patient was getting progressively more hypoxic and short of breath and agitated yesterday. He was quite confused. He was brought up to 6 L of O2 nasal cannula. He also became hypertensive. He was given IV Ativan and IV hydralazine. A CAT scan of the brain was done yesterday showed meningiomas , no acute abnormalities noted. He was given As mentioned earlier, the patient has a malignant mesothelioma. The patient also has developed significant thickening and the pleural rind around the left lung with some small loculated left-sided pleural effusions. There is also cavitation in the left lung in addition to mediastinal lymphadenopathy. Disease has progressed accordingly. For now, the patient is functionally doing very poor.. He seems to be quite weak and progressively getting more debilitated.The blood work shows a white cell count of 19.9 with a hemoglobin of 7.8 and the platelet count of 602. The blood gases from yesterday showed a pH of 7.46 with a pCO2 of 40 and pO2 of 76. Rest of the electrolytes are all within normal limits. The chest x-ray showing almost complete opacification of left hemithorax with extensive pulmonary infiltration. No progression on the right side of the lung. No right-sided pleural effusion. The patient has slightly improved with elevation in the lateral aspect of the left upper and midlung zone. 08/04/2021, the patient is on 4 L of oxygen by nasal cannula. He is slightly more oriented and awake compared to yesterday. Yesterday he was having significant mental status change and this morning he seems to be much more appropriate. Is following commands and answering questions. He is breathing is labored and the patient is unable to do any form of activity without getting short of breath. Chest x-rays showing complete opacification of the left lung. Based on an elevated pro calcitonin level, we suspected an infection and is currently covered with IV Zosyn. As stated, no role for Pleurx catheter insertion. No role for thoracentesis. The patient's pro calcitonin level was at 0.6. White cell count is at 19. I to normal. Prognosis extremely poor. Family from out of town is arriving today to the hospital. He is a DNR/DNI CODE STATUS. His oral intake is minimal at this point in time. He continues to be in bed lying on his left side which makes him more comfortable. No issues with pain. No focal neurological deficits. He has generalized global weakness. Expiratory thousand and 22, the patient is feeling stronger and he is alert and awake and sitting up on a recliner. He is still on 4 L O2 nasal cannula. Breathing is [id number] with talking and doing minimal amount of activity. He is weak. He has poor balance and coordination. The patient does not seem to be still interested in hospice. Nevertheless, he is quite weak for any systemic treatment for his underlying mesothelioma. He is looking for an ECF placement at least what I got from him today. The patient is a DNR/DNI CODE STATUS. The white cell count today is still pending. Labs from yesterday showed a white cell count of 20 with a hemoglobin of 7.5 and a platelet count of 595. In terms of medication, the patient is on oxygen at 4 L. He is on IV Zosyn and IV Solu-Medrol 40 mg every 12 hours. His pro calcitonin level at the time of admission was 0.6. Repeat level is at 0.88. on 08/06/2021, the patient is essentially same as yesterday. He still trying to figure out whether to go to ECF versus home. He stopped 40s about 2 by nasal cannula. His CODE STATUS is DNR/DNI. no new complaints otherwise for now. the patient is on IV Zosyn and IV Solu-Medrol still. in terms of his labs, the electrolytes all within normal limits. Renal function is also normal. he is tolerating his diet. No altered mentation and confusion. He is weak. 2021, the patient is feeling better and stronger and he wants to go to ECF for further rehabilitation. As mentioned, is a DNR/DNI CODE STATUS and he has malignant mesothelioma. He is on O2 at 4 L. He remains on IV Zosyn. He is also on steroids. No other significant events overnight. His labs have been noted and the patient has a white cell count of 14 with a hemoglobin of 8. Rest of the electrolytes are all within normal limits. Objective - Vital Signs Vital signs: Vital Signs Temp 97.8 F 08/07/21 08:57 Pulse 75 08/07/21 08:57 Resp 16 08/07/21 08:57 BP 122/75 08/07/21 08:57 Pulse Ox 93 L 08/07/21 08:57 FiO2 Intake & Output 08/06/21 08/07/21 08/07/21 18:59 06:59 18:59 Intake Total 480 840 118 Output Total 400 300 Balance 80 540 118 Intake: Oral 480 840 118 Output: Urine 400 300 Other: Voiding Method Toilet Toilet Toilet # Voids 1 2 # Bowel Movements 1 2 - Exam GENERAL EXAM: Alert, pleasant 71-year-old male patient, on 4 L nasal cannula, comfortable in no apparent distress. HEAD: Normocephalic. EYES: Normal reaction of pupils, equal size. NOSE: Clear with pink turbinates. THROAT: No erythema or exudates. NECK: No masses, no JVD. CHEST: No chest wall deformity. LUNGS: Equal air entry with crackles in the left lung base, diminished. CVS: S1 and S2 normal with no audible murmur, regular rhythm. ABDOMEN: No hepatosplenomegaly, normal bowel sounds, no guarding or rigidity. SPINE: No scoliosis or deformity SKIN: No rashes CENTRAL NERVOUS SYSTEM: No focal deficits, tone is normal in all 4 extremities. EXTREMITIES: There is no peripheral edema. No clubbing, no cyanosis. Peripheral pulses are intact. - Labs CBC & Chem 7: 08/06/21 12:04 08/06/21 12:04 Labs: Abnormal Lab Results - Last 24 Hours (Table) 08/06/21 08/06/21 Range/Units 12:04 12:04 WBC 14.3 H (3.8-10.6) k/uL RBC 3.31 L (4.30-5.90) m/uL Hgb 8.0 L (13.0-17.5) gm/dL Hct 28.1 L (39.0-53.0) % MCH 24.1 L (25.0-35.0) pg MCHC 28.4 L (31.0-37.0) g/dL RDW 16.8 H (11.5-15.5) % Plt Count 566 H (150-450) k/uL Neutrophils # 13.3 H (1.3-7.7) k/uL Lymphocytes # 0.5 L (1.0-4.8) k/uL BUN 30 H (9-20) mg/dL Glucose 142 H (74-99) mg/dL Calcium 7.8 L (8.4-10.2) mg/dL AST 61 H (17-59) U/L ALT 66 H (4-49) U/L Total Protein 5.4 L (6.3-8.2) g/dL Albumin 2.4 L (3.5-5.0) g/dL Assessment and Plan Plan: Acute hypoxemic respiratory failure secondary to increasing left sided recurrent pleural effusion and atelectasis secondary to mesothelioma the left lung and pleural rind diagnosed by wedge biopsy on 07/21/2021, along with progressive worsening and hypoxemia and the patient is currently on 4 L of O2 nasal cannula. There is significant opacification of the left lung which is a combination of tumor progression, mesothelioma, and possibly a superinfection with a pneumonia. Clinically stable and improved for now. Leukocytosis secondary to suspected postobstructive pneumonia, currently on Zosyn, pro-calcitonin 0.61 Recurrent left-sided pleural effusion secondary to above Altered mental status Obesity Hypertension Chronic anemia, current hemoglobin 7.3 Plan: ok to DISCHARGE to [facility] on the [facility] DNR/DNI CODE STATUS Switch the antibiotics to oral Augmentin 875 mg twice a day Prednisone burst taper starting with 40 mg to be tapered by 10 mg every 4 days Oxygen 4 L per minute nasal cannula Possible systemic chemotherapy on outpatient basis if the patient is able to rehabilitate himself and become more functional. Prognosis remains extremely poor due to his underlying malignancy. CODE STATUS to DNR/DNI.
--- NOTE | 2021-08-07 11:25 | P.DS ---
Providers Date of admission: 07/30/21 20:34 Expected date of discharge: 08/07/21 Attending physician: Elvira Araya Consults: 07/30/21 20:34 Consult Physician Urgent Consulting Provider: Frankie Perez Consult Reason/Comments: Lung cancer history, pleural effusion Do you want consulting provider notified?: Yes Consult Physician Urgent Consulting Provider: Gonzales Sheldon Consult Reason/Comments: Lung cancer history Do you want consulting provider notified?: Yes 08/01/21 13:31 Consult Physician Routine Consulting Provider: Jessie Lr Consult Reason/Comments: Eval for pleurX catheter placement , recurrent malig effusion Do you want consulting provider notified?: Yes Primary care physician: Stated None Hospital Course: 71 years old male with past medical history of COPD, Hypertension. Had left pleural effusion on 06/08/21, s/p left thoracentesis, has O2 @ 2L, using prn. Presents with worsening dyspnea over the last few days. Patient told me since June 08 is starts having dyspnea and since then is getting progressively worse. Occasional dry cough, no chest pain, no diarrhea or vomiting. No dizziness. Last week he had Left thoracotomy the left pleural and lung biopsy, there is surgical wound with ender, it looks clean and closed, there is 2 puncture wounds healing with no evidence of infection. No urinary complaints. Patient has memory problems and could not remember all the details. However he says that he having been started chemotherapy and he thinks he is going to see a doctor whom he believes his oncologist. On admission patient is tachypneic and tachycardic, blood pressure is 117/79 CBC showing leukocytosis of 18.7 K, it was 18.9 last month. INR is 1.1. D-dimer elevated 4.2. BMP is unremarkable. Liver enzymes not elevated. ProBNP is 1500 and troponin negative less than 0.02. EKG showing sinus tachycardia with PVCs rate of 125. No significant ST-T changes CTA of the chest: No pulmonary embolism. Worsening left pleural effusion. New cavitary lesion of the left lung which could represent necrotizing pneumonia versus necrotic mass. Mediastinal lymphadenopathy 08/01/2021 Patient remains tachypneic and saturation actually is better than yesterday. His breathing difficulty feels better today. He is saturating 97% on 2 L oxygen via nasal cannula He has this leukocytosis and hemoglobin dropped it 0.1 down to 7.3, could be elements of hemodilution but we will need to keep his hemoglobin closely. His new cavitary lesion in the left flank most likely infection procalcitonin elevated at 0.61. Patient is currently on Zosyn 08/02/2021 Patient is currently lying in bed. Awake and alert. Was admitted to hospital due to shortness of breath and mesothelioma. CT angiogram of the chest on admission showed no evidence of PE. Interval worsening left-sided pleural effusion with worsening lobulated pleural thickening of the left pleural space. There is new and probably lobular septal thickening suggestive of new pulmonary edema. Correlate with recent biopsy results and clinical picture for infection versus malignancy. New cavitary lesion seen from 06/24/2021 and the left lung which could represent necrotizing pneumonia versus necrotizing mass which is felt to be less likely given the short interval. Increasing mediastinal lymphadenopathy along with left internal mammary lymph node could be reactive versus secondary to metastatic lymphadenopathy. Posttraumatic changes of the left soft tissues with soft tissue now within the left lateral sidewall. Laboratory data showed WBC 16.9 hemoglobin 7.7 and platelets 531, sodium 137 potassium 3.921-2 bicarb is 29 BUN 13 and creatinine 0.85, albumin 2.4. Pro- calcitonin was 0.61 on 07/31/2021. Patient remains on antibiotic from Zosyn. 08/03/2021 Patient is currently lethargic and drowsy and confused. Overnight patient became more short of breath and confused and became more hypoxic. Patient was given IV Ativan and IV hydralazine due to elevated blood pressure. Currently patient is requiring oxygen at 6 L per nasal cannula. Patient was also started on methylprednisolone 40 mg every 8. Yesterday morning patient had CT of the head showed no acute intracranial abnormality seen. Couple extra axial lesion superiorly along the parasagittal midline measuring 1.1 cm in the right and 2 cm in the left likely meningiomas. Consider outpatient referral to neurosurgery for any potential follow-up. Laboratory data showed WBC 19.9 hemoglobin 7.8 and platelets 602 sodium 138 potassium 3.8 chloride 103 bicarb 29, BUN 14 and creatinine 0.77 calcium 7.7, albumin 2.4 Patient is on antibiotics in the form of Zosyn and DuoNeb's. Pulmonary and oncology is on board. 08/04/2021 Patient is in the telemetry unit. Seems to be more awake and oriented today. Requiring oxygen at 4 L via nasal cannula. Breathing status is better today. No complaints of chest pain. No nausea or vomiting or abdominal pain or diarrhea. Laboratory showed WBC went up to 19.9 hemoglobin 7.8 and platelets 602 sodium 138 potassium 3.8 chloride 103 bicarbonate 29 BUN 14 and creatinine 0.77 calcium 7.7. Patient is being continued on Zosyn. Procalcitonin was elevated 0.6. Patient is also on methylprednisolone and duo nebs. Pulmonary is on board. No role for thoracentesis at this time. Discussed with the patient and his at bedside in detail. Patient's family is hospice care. 08/05/2021 Patient feels better today. Awake alert and oriented. Able to sit in the recliner. Currently requiring oxygen 4 L via nasal cannula. Otherwise patient feels very weak and with balance issues. Patient did have a white count elevated at 20.0 yesterday and hemoglobin 7.5. Procalcitonin was 0.88. Patient is being continued on antibiotics in the form of Zosyn and IV methylprednisolone changed to prednisone 40 mg daily. Pulmonary and oncology is on board. 08/06/2021, the patient is essentially same as yesterday. He still trying to figure out whether to go to ECF versus home. He stopped 40s about 2 by nasal cannula. His CODE STATUS is DNR/DNI. no new complaints otherwise for now. the patient is on IV Zosyn and IV Solu-Medrol still. in terms of his labs, the electrolytes all within normal limits. Renal function is also normal. he is tolerating his diet. No altered mentation and confusion. He is weak. 08/07/2021, the patient is feeling better and stronger and he wants to go to ECF for further rehabilitation. As mentioned, is a DNR/DNI CODE STATUS and he has malignant mesothelioma. He is on O2 at 4 L. He remains on IV Zosyn. He is also on steroids. No other significant events overnight. His labs have been noted and the patient has a white cell count of 14 with a hemoglobin of 8. Rest of the electrolytes are all within normal limits. Plan - Discharge Summary Discharge Rx Participant: Yes New Discharge Prescriptions: New Amoxic-Pot Clav 875-125Mg [Augmentin 875-125] 1 tab PO Q12HR 5 Days #10 tab predniSONE 10 mg PO DIRECTED 16 Days #40 tab Ipratropium-Albuterol Nebulize [Duoneb 0.5 mg-3 mg/3 ml Soln] 3 ml INHALATION RT-QID PRN each PRN Reason: Dyspnea Metoprolol Tartrate [Lopressor] 25 mg PO BID tab Continue Acetaminophen Tab [Tylenol] 650 mg PO Q4HR PRN tab PRN Reason: Fever And/ Or Pain traMADol HCl [Ultram] 50 mg PO Q6HR PRN #14 tab PRN Reason: Breakthrough Pain Discharge Medication List Acetaminophen Tab [Tylenol] 650 mg PO Q4HR PRN tab 07/24/21 [Rx] traMADol HCl [Ultram] 50 mg PO Q6HR PRN #14 tab 07/24/21 [Rx] Amoxic-Pot Clav 875-125Mg [Augmentin 875-125] 1 tab PO Q12HR 5 Days #10 tab 08/07/21 [Rx] Ipratropium-Albuterol Nebulize [Duoneb 0.5 mg-3 mg/3 ml Soln] 3 ml INHALATION RT-QID PRN each 08/07/21 [Rx] Metoprolol Tartrate [Lopressor] 25 mg PO BID tab 08/07/21 [Rx] predniSONE 10 mg PO DIRECTED 16 Days #40 tab 08/07/21 [Rx] Follow up Appointment(s)/Referral(s): Joi Whittaker MD [STAFF PHYSICIAN] - 08/06/21 10:30 am Vee Brennan MD [STAFF PHYSICIAN] - 1-2 Days (New PCP appointment ) Antonio Enciso MD [STAFF PHYSICIAN] - 08/03/21 2:00 pm Gonzales Sheldon MD [STAFF PHYSICIAN] - 1 Week Discharge/Stand Alone Forms: Personal Manager Program Management Discharge Disposition: TRANSFER TO SNF/ECF
[2021-08-07] MEDS: IPRATROPIUM-ALBUTEROL 3 ML NEB INHALATION PRN (11:33)
[2021-08-07 14:46] VITALS: BP 120/76; PULSE 74; RESP 17; TEMP 98
== END 2021-08-07 14:58 | DRG 843 ==
LOC: EC 17:11 → 3SCARD 20:34
PROVIDERS: ADMIT Internal Medicine; ATTEND Internal Medicine
DX: C45.7 Mesothelioma of other sites (principal); G93.41 Metabolic encephalopathy; J96.21 Acute and chronic respiratory failure with hypoxia; J18.9 Pneumonia, unspecified organism; J90 Pleural effusion, not elsewhere classified; J44.0 Chronic obstructive pulmonary disease with (acute) lower respiratory infection; J98.11 Atelectasis; C77.9 Secondary and unspecified malignant neoplasm of lymph node, unspecified; E66.9 Obesity, unspecified; Z66 Do not resuscitate; Z51.5 Encounter for palliative care; J34.2 Deviated nasal septum; Z68.25 Body mass index [BMI] 25.0-25.9, adult; R00.0 Tachycardia, unspecified; G51.0 Bell's palsy; I10 Essential (primary) hypertension; D64.9 Anemia, unspecified; Z85.831 Personal history of malignant neoplasm of soft tissue; Z91.012 Allergy to eggs; Z82.49 Family history of ischemic heart disease and other diseases of the circulatory system; Z85.118 Personal history of other malignant neoplasm of bronchus and lung; I49.3 Ventricular premature depolarization; Z80.0 Family history of malignant neoplasm of digestive organs; Z82.0 Family history of epilepsy and other diseases of the nervous system; Z82.5 Family history of asthma and other chronic lower respiratory diseases
CPT/HCPCS: 36415; 36600; 70450; 71045; 71046; 71275; 74018; 76604; 80048; 80053; 80076; 82140; 82805; 83605; 83735; 83880; 84145; 84484; 85025; 85379; 85610; 85730; 87040; 93005; 93970; 94640; 94760; 96374; 99285